=== PATIENT | male | born 1955 | race Caucasian/White ===

== ENCOUNTER 2018-06-28 12:43 | Observation (INO) | payer BC ==
--- NOTE | 2018-06-28 13:06 | ED ---
Shortness of Breath - HPI Summary HPI Summary: A 62 y/o M presents to ED c/o severe SOB with minimal exertion (for example: going up a flight steps, walking half a block, etc.) ongoing for the past 3-4 weeks. He states it is not worsening by not improving. At the same time, he began experiencing mild tinnitus in R ear described as ringing and squishing." Associated sx: Mild cough; RLE pedal edema onset two days ago, but it has returned to baseline. Denies nausea, CP, diarrhea, constipation, urinary sx, sore throat. He sleeps upright at night. He is unaware if he has a slow heart rate at baseline. PMHx: DM. - History of Current Complaint Chief Complaint: EDShortnessOfBreath Time Seen by Provider: 06/28/18 13:02 Hx Obtained From: Patient, Medical Records Onset/Duration: Lasting Weeks, Still Present Current Severity: Mild Dyspnea At: Exertion - mild Associated Signs & Symptoms: Edema - RLE, since resolved - Allergy/Home Medications Allergies/Adverse Reactions: Allergies Allergy/AdvReac Type Severity Reaction Status Date / Time codeine Allergy GI Upset Verified 06/28/18 12:58 doxycycline Allergy Rash Verified 06/28/18 12:58 Penicillins Allergy Dizziness Verified 06/28/18 12:58 Sulfa (Sulfonamide Allergy Rash Verified 06/28/18 12:58 Antibiotics) Home Medications: Home Medications Allopurinol TAB* [Zyloprim 100 MG TAB*] 200 mg PO DAILY 06/28/18 [History Confirmed 06/28/18] Dulaglutide (NF) [Trulicity] 1.5 mg SUBCUT WEEKLY 06/28/18 [History Confirmed ] Fenofibrate,Micronized [Fenofibrate] 134 mg PO DAILY 06/28/18 [History Confirmed 06/28/18] Metformin ER (NF) [Glucophage ER 750 MG TAB (NF)] 750 mg PO BID 06/28/18 [ History Confirmed 06/28/18] Metoprolol Succinate XL TAB* [Toprol XL TAB*] 100 mg PO DAILY 06/28/18 [History Confirmed 06/28/18] Omeprazole CAP (NF) [Prilosec CAP* 20 MG] 20 mg PO DAILY 06/28/18 [History Confirmed 06/28/18] PMH/Surg Hx/FS Hx/Imm Hx Previously Healthy: No Endocrine/Hematology History: Reports: Hx Diabetes Denies: Hx Thyroid Disease Cardiovascular History: Reports: Hx Hypertension Respiratory History: Denies: Hx Asthma, Hx Chronic Obstructive Pulmonary Disease (COPD), Other Respiratory Problems/Disorders GI History: Denies: Hx Ulcer - Surgical History Surgery Procedure, Year, and Place: tonsils; orthoscopic R knee; benign lipoma removed from shoulder (benign) Infectious Disease History: No Infectious Disease History: Denies: Hx Clostridium Difficile, Hx Hepatitis, Hx Human Immunodeficiency Virus (HIV), Hx of Known/Suspected MRSA, Hx Shingles, Hx Tuberculosis, Hx Known/ Suspected VRE, Hx Known/Suspected VRSA, History Other Infectious Disease, Traveled Outside the [place] in Last 30 Days - Family History Known Family History: Positive: Hypertension, Diabetes - Social History Occupation: Retired Lives: With Family Alcohol Use: Occasionally Alcohol Amount: was drinking daily,but has had no alcohol since last tuesday when seen here Hx Substance Use: No Substance Use Type: Reports: None Hx Tobacco Use: No Smoking Status (MU): Never Smoked Tobacco Review of Systems ENT: Other - pos: tinnitus in R ear Negative: Sore Throat Negative: Chest Pain Positive: Shortness Of Breath, Cough Negative: Diarrhea, Nausea, Other - neg: constipation Negative: other - neg: urinary sx Positive: Edema - RLE, resolved All Other Systems Reviewed And Are Negative: Yes Physical Exam - Summary Physical Exam Summary: Constitutional: Well-developed, Well-nourished, Alert. (-) Distressed Skin: Warm, Dry HENT: Normocephalic; Atraumatic Eyes: Conjunctiva normal Neck: Musculoskeletal ROM normal neck. (-) JVD, (-) Stridor, (-) Tracheal deviation Cardio: Rhythm irregularly irregular, rate normal, Heart sounds normal; Intact distal pulses; The pedal pulses are 2+ and symmetric. Radial pulses are 2+ and symmetric. (-) Murmur Pulmonary/Chest wall: Effort normal. (-) Respiratory distress, (-) Wheezes, (-) Rales Abd: Soft, (-) tenderness, (-) Distension, (-) Guarding, (-) Rebound Musculoskeletal: (-) Edema Lymph: (-) Cervical adenopathy Neuro: Alert, Oriented x3 Psych: Mood and affect Normal Triage Information Reviewed: Yes Vital Signs On Initial Exam: Initial Vitals Temp Pulse Resp BP Pulse Ox 97.4 F 35 16 153/74 96 06/28/18 12:54 06/28/18 12:54 06/28/18 12:54 06/28/18 12:54 06/28/18 12:54 Vital Signs Reviewed: Yes Diagnostics - Vital Signs Vital Signs Temp Pulse Resp BP Pulse Ox 06/28/18 12:54 97.4 F 35 16 153/74 96 - Laboratory Result Diagrams: 06/28/18 13:35 06/28/18 13:35 Lab Statement: Any lab studies that have been ordered have been reviewed, and results considered in the medical decision making process. - EKG 1314 Cardiac Rate: NL - 97 bpm EKG Rhythm: Sinus Rhythm Summary of EKG Findings: Frequent PACs, nml axis, nml NC, nml QRS, prolonged QTC , ST elevation in V2; T waves nml. Non-specific EKG. Re-Evaluation - Re-Evaluation 1 Re-Evaluation Time: 14:19 Change: Improved Comment: Discussing results with pt and plans to admit. Course/Dx - Course Course Of Treatment: Pt is 62 y/o M presenting with severe SOB with minimal exertion (ex: going up a flight steps, walking half a block, etc) ongoing for the past 3-4 weeks and not improving. PE is unremarkable except irregularly irregular rhythm. Lab work shows sodium: 132, glucose: 243, BNP: 256 and trop: 0.20. EKG shows NSR at 97 bpm with requent PACs, nml axis, nml NC, nml QRS, prolonged QTC, ST elevation in V2; T waves nml. Non-specific EKG. Consulted with Dr. Novak, hospitalist, who will admit patient. - Diagnoses Provider Diagnoses: CHF (congestive heart failure), Elevated troponin - Physician Notifications Discussed Care of Patient With: Juanita Novak - hospitalist Time Discussed With Above Provider: 14:19 Instructed by Provider To: Admit As Inpatient Discharge - Sign-Out/Discharge Documenting (check all that apply): Patient Departure - ADMIT Patient Received Moderate/Deep Sedation with Procedure: No - Discharge Plan Condition: Stable Disposition: ADMITTED TO [facility] Referrals: Chantelle Baker PA [Primary Care Provider] - - Billing Disposition and Condition Condition: STABLE Disposition: Admitted to [facility] - Attestation Statements Document Initiated by Yomaira: Yes Documenting Scribe: Preet Santoyo Provider For Whom Yomaira is Documenting (Include Credential): Dr. Katlin Ma MD Scribe Attestation: I, Preet Santoyo, scribed for Dr. Katlin Ma MD on at 1511. Scribe Documentation Reviewed: Yes Provider Attestation: The documentation as recorded by the yomaira, Preet Santoyo accurately reflects the service I personally performed and the decisions made by me, Dr. Katlin Ma MD Status of Scribe Document: Viewed
--- OUTSIDE RECORDS SUMMARY | 2018-06-28 13:15 | XMS REPORT | Continuity of Care Document ---
:1955 External Reference #:[id number] Author Name Nilsa Arias Care Team Providers Name Role Phone Randa Galvan M.D. Primary Care Physician Unavailable Payers Date Identification Numbers Payment Provider Subscriber Effective: 2011 Policy Number: [id number] [facility] [employer] Name: [facility] [address] [address] PayID: [id number] ALBERTA [place]vall [address] Expires: 2011 Policy Number: [id number] [facility] Health Plan o [employer] Number: [id number] Attn [facility]mo Claims Dept Group Name: [facility] [address] PayID: [id number] [place] [address] Advance Directives Type Date Description Status Comment Other Directive 02/28/2014 Health Care Proxy Current and Verified Problems Active Problems Provider Date Type 2 diabetes mellitus Dimitri Martell M.D.,FACP Onset: 03/02/2016 Essential hypertension Gurjit Cartagena M.D. Onset: 02/28/2014 Gastroesophageal reflux disease Gurjit Cartagena M.D. Onset: 02/28/2014 Gout Gurjit Cartagena M.D. Onset: 02/28/2014 Hyperlipidemia Gurjit Cartagena M.D. Onset: 03/06/2014 Stricture of esophagus Gurjit Cartagena M.D. Onset: 04/10/2014 Note: s/p dilatation Primary insomnia Dimitri Martell M.D.,CARLITA Onset: 01/27/2017 Inactive Problems Diabetes mellitus Gurjit Cartagena M.D. Onset: 02/28/2014 Inactive: 03/02/2016 Family History Date Family Member(s) Observation Comments : (1996) Father due to Heart or liver problem Father Diabetes : (age 73 Years) Mother due to Unknown reason Siblings 2 sisters Social History Type Date Description Comments Sex Unknown Marital Status 2 Times Lives With Occupation Businessman retired ETOH Use 02/20/2018 Consumes 3 glasses of wine per week Tobacco Use Start: Unknown Patient has never smoked Recreational Drug Use Denies Drug Use Smoking Status Reviewed: 06/28/18 Patient has never smoked Exercise Type/Frequency Plays sports 3 times a week Allergies, Adverse Reactions, Alerts Active Allergies Reaction Severity Comments Date Penicillins 02/08/2014 Bactrim Urticaria 02/08/2014 Doxycycline Urticaria 02/08/2014 Codeine nausea 08/27/2014 Medications Active Medications SIG Qnty Indications Ordering Date Provider Metformin HCL ER take 1 tablet twice 60tabs E11.65 Tanvir Grace 05/24/2018 a day. Son Bautista 750mg Tablets ER 24HR Fenofibrate 1 by mouth every day 30caps E78.2 Tanvir Grace 05/24/2018 134mg Son Bautista Capsules Lunesta 1 tablet by mouth at 30tabs G47.00 Dimitri Cheung 02/20/2018 3mg Tablets bedtime, as needed Son Martell,FACP Trulicity inject 2ml Dimitri Cheung 08/30/2017 1.5mg/0.5ML subcutaneously Catharpin, Solution Pen-Inject weekly M.Skye,FACP Metoprolol Succinate 1 tab by mouth every 135tabs Dimirti Cheung 08/17/2016 ER day Catharpin, 100mg Tablets ER M.DStanford,FACP 24HR Allopurinol 2 by mouth every day 180tabs Tanvir Grace 08/19/2015 100mg Son Bautista Tablets Accu-Check Glucose check 2-3 times a 1units Gurjit Cartagena, 03/06/2014 Monitor day M.Skye Device Accu-Check as directed 100units Dimitri Cheung 03/06/2014 Compactstrips Jayshree, Strips Son,FACP Accu-Chek Fastclix use as directed dx 102units Gurjit Cartagena, 03/06/2014 Lancets code: dm type ii Son Misc 250.02 Omeprazole 1 by mouth every day 90tabs Randa Galvan, 20mg MD Tablets DR Olea Potassium take 1 tablet by 90tabs Dimitri Cheung mouth once daily Catharpin, 100mg Tablets Lima.Skye,[facility] History Medications Sertraline HCL 1/2 qd for 3 wks 30tabs Dimitri Cheung 02/20/2018 - 50mg then 1 by mouth Son Martell,[facility] 06/28/2018 Tablets every day Citalopram 1/2 by mouth every 30tabs Dimitri Cheung 12/06/2017 - Hydrobromide day for 3 wks then Son Martell,[facility] 03/13/2018 20mg Tablets stop Citalopram 1 by mouth every 30tabs Dimitri Cheung 11/08/2017 - Hydrobromide day Son Martell,[facility] 12/06/2017 10mg Tablets Amlodipine Besylate 1 by mouth every 30tabs Dimitri Cheung 07/01/2017 - 2.5mg day Son Martell,[facility] 06/28/2018 Tablets Ciprofloxacin HCL si twice a day 28tabs N41.0 Dimitri Cheung 04/26/2017 - 500mg x 7 days Son Martell,[facility] 05/24/2017 Tablets Ciprofloxacin HCL twice a day 28tabs N39.0 Frederick 04/13/2017 - 500mg Son Camarena 04/26/2017 Tablets Metformin HCL 1 by mouth 3x a 90tabs E11.65 Tanvir Grace 04/04/2017 - 500mg day Son Bautista 05/24/2018 Tablets Invokamet 1 po bid 60tabs E11.65 Dimitri Cheung 02/11/2017 - 50-500mg Son Martell,[facility] 04/04/2017 Tablets Belsomra 1 by mouth every 30tabs Dimitri Cheung 01/27/2017 - 10mg Tablets night at bedtime Son Martell,[facility] 03/03/2017 Xigduo XR 1 tab po bid 60tabs E11.65 Dimitri Cheung 01/27/2017 - 5-500mg Tablets (patient bringing Son Martell,[facility] 02/11/2017 ER 24HR copay card) Rosuvastatin Calcium 1 by mouth every 90tabs Dimitri Cheung 11/02/2016 - 5mg night at bedtime Son Martell,[facility] 05/24/2018 Tablets Bydureon inject 2 mg sc 4units Dimitri Cheung 08/17/2016 - 2mg Pen weekly Son Martell,[facility] 08/30/2017 Metformin HCL 1 by mouth twice a 60tabs Dimitri Cheung 08/17/2016 - 850mg day Son Martell,[facility] 01/27/2017 Tablets Clindamycin HCL 1 tabs by mouth 40caps J01.90 Frederick 05/21/2016 - 300mg every 6h Son Camarena 05/31/2016 Capsules Lamisil AT topical once a day 42gm Dimitri Cheung 03/02/2016 - 1% Cream for 2 wks minumumJayshree M.D.,[facility] 04/26/2017 4 wks max Betamethasone topical every day 15gm Dimitri Cheung 03/02/2016 - Dipropionate to affected areas Son Martell,[facility] 04/26/2017 0.05% Cream Econazole Nitrate topical twice a 30gm B35.3 Dimitri Cheung 11/25/2015 - 1% day max 4 weeks Son Martell,[facility] 03/02/2016 Cream Trazodone HCL 1-2 every night at 60tabs G47.00 Dimitri Cheung 08/19/2015 - 50mg bedtime Son Martell,[facility] 11/25/2015 Tablets Janumet XR 1 tab by mouth 180tabs Dimitri Cheung 07/31/2015 - 50-500mg twice a day Son Martell,[facility] 08/17/2016 Tablets ER 24HR Janumet XR 1 by mouth twice a 60tabs E11.65 Dimitri Cheung 05/13/2015 - 50-1000mg day [facility]ell,[facility] 07/31/2015 Tablets ER 24HR Repaglinide 1 tablet by mouth 90tabs Dimitri Cheung 01/01/2015 - 0.5mg Tablets 15-30 minutes Son Martell,[facility] 06/28/2018 before meals three times a day Cheratussin ac 5-10 milliliters 180ml 786.2 Lenny Angel NP 10/03/2014 - by mouth four 05/13/2015 100-10mg/5ML Solution times a day as needed Ciprofloxacin HCL 1 tab by mouth 14tabs 786.2 Lenny Angel NP 10/03/2014 - 500mg twice a day x 7 05/13/2015 Tablets days Invokana 1 tablet po daily 30tabs 250.02 Gurjit Cartagena, 07/03/2014 - 100mg Tablets M.D. 05/13/2015 Januvia 1 tablet by mouth 60tabs 250.02 Gurjit Joyino, 05/01/2014 - 100mg Tablets daily M.D. 05/13/2015 Metformin HCL 1 by mouth twice a 60tabs E11.65 Dimitri Cheung 05/01/2014 - 500mg day Son Martlel,[facility] 05/13/2015 Tablets Meclizine HCL 1 tablet twice a 30tabs 780.4 Gurjit Cartagena, 04/10/2014 - 12.5mg day, as needed M.D. 07/03/2014 Tablets Cyclobenzaprine HCL 1 tablet by mouth 30tabs 723.1 Gurjit Cartagena, 2014 - 5mg three times a day M.D. 07/03/2014 Tablets as needed Atorvastatin Calcium 1 tablet at 60tabs 272.2 Gurjit Cartagena, 03/06/2014 - 20mg bedtime daily M.D. 04/09/2014 Tablets Metformin HCL 1/2 tablet by 60tabs Gurjit Cartagena, 02/28/2014 - 500mg mouth twice a day M.D. 04/09/2014 Tablets Januvia 1 tablet po daily 60tabs Gurjit Cartagena, 02/28/2014 - 50mg Tablets M.D. 05/01/2014 Allopurinol 1 by mouth every 90tabs Frederick - 300mg Tablets day Son Camarena 08/19/2015 Klonopin 1 by mouth twice a 30tabs Unknown - 0.5mg Tablets day 03/06/2014 Lunesta 1 tablet by mouth 30tabs G47.00 Dimitri Cheung - 3mg Tablets at bedtime, as Son Martell,[facility] 04/26/2017 needed Metoprolol Succinate take 1 tablet by 90tabs Dimitri Cheung - ER mouth once daily Son Martell,[facility] 08/17/2016 100mg Tablets ER 24HR Immunizations CPT Code Status Date Vaccine Reaction Lot # [id number] Given 11/08/2017 Influenza Virus Vaccine, [id number] Quadrivalent, Split, Preservative Free 18717 Given 01/27/2017 Zoster (Zostavax) [id number] 90408 Given 12/04/2016 Influenza Virus Vaccine, Quadrivalent, Split, Preservative Free 06885 Given 06/22/2016 Pneumococcal Conjugate Vaccine 13 Valent For Intramuscular Use [id number] Given 12/07/2015 Fluvirin Im 3Yrs And Older 33452 Given 11/25/2015 Tdap - no reaction noted ... [id number] Tetanus/Diptheria/Acellular hh Pertussis 19064 Given 05/13/2015 Pneumonia Vaccine [id number] Q2039 Given 12/07/2014 Flu Vaccine NOS Vital Signs Date Vital Result Comment 06/28/2018 10:33am Height 70 inches 5'10" Weight 226.00 lb Heart Rate 63 /min BP Systolic Sitting 129 mmHg BP Diastolic Sitting 88 mmHg O2 % BldC Oximetry 94 % BMI (Body Mass Index) 32.4 kg/m2 05/24/2018 10:56am Height 70 inches 5'10" Weight 224.00 lb Heart Rate 89 /min BP Systolic Sitting 123 mmHg BP Diastolic Sitting 76 mmHg BMI (Body Mass Index) 32.1 kg/m2 02/20/2018 11:01am Height 70 inches 5'10" Weight 218.00 lb Heart Rate 100 /min BP Systolic Sitting 118 mmHg BP Diastolic Sitting 80 mmHg Body Temperature 97.0 F O2 % BldC Oximetry 95 % BMI (Body Mass Index) 31.3 kg/m2 12/06/2017 11:39am Height 70 inches 5'10" Weight 217.00 lb Heart Rate 89 /min BP Systolic Sitting 118 mmHg BP Diastolic Sitting 64 mmHg Body Temperature 96.9 F O2 % BldC Oximetry 95 % BMI (Body Mass Index) 31.1 kg/m2 11/08/2017 3:36pm Weight 216.00 lb Heart Rate 92 /min BP Systolic Sitting 122 mmHg BP Diastolic Sitting 66 mmHg Body Temperature 97.7 F O2 % BldC Oximetry 94 % 08/30/2017 1:54pm Weight 210.00 lb Heart Rate 96 /min BP Systolic Sitting 130 mmHg BP Diastolic Sitting 82 mmHg Body Temperature 96.3 F O2 % BldC Oximetry 96 % 04/26/2017 9:44am Weight 219.00 lb Heart Rate 106 /min BP Systolic Sitting 166 mmHg BP Diastolic Sitting 84 mmHg Body Temperature 97.3 F O2 % BldC Oximetry 94 % 04/13/2017 9:44am Height 69.25 inches 5'9.25" Weight 223.75 lb Heart Rate 94 /min BP Systolic Sitting 124 mmHg BP Diastolic Sitting 80 mmHg Body Temperature 97.4 F O2 % BldC Oximetry 94 % BMI (Body Mass Index) 32.8 kg/m2 01/27/2017 9:18am Height 69.25 inches 5'9.25" Weight 214.00 lb Heart Rate 92 /min BP Systolic Sitting 126 mmHg BP Diastolic Sitting 80 mmHg Body Temperature 97.1 F O2 % BldC Oximetry 96 % BMI (Body Mass Index) 31.4 kg/m2 10/22/2016 8:00am Weight 224.50 lb Heart Rate 89 /min BP Systolic Sitting 150 mmHg BP Diastolic Sitting 82 mmHg Body Temperature 97.5 F O2 % BldC Oximetry 95 % 08/17/2016 9:00am Weight 229.50 lb Heart Rate 91 /min BP Systolic Sitting 160 mmHg BP Diastolic Sitting 95 mmHg BP Systolic Recheck 152 mmHg BP Diastolic Recheck 94 mmHg Body Temperature 97.5 F O2 % BldC Oximetry 97 % 05/21/2016 11:29am Weight 227.25 lb Heart Rate 86 /min BP Systolic Sitting 142 mmHg BP Diastolic Sitting 90 mmHg Body Temperature 97.3 F O2 % BldC Oximetry 97 % 05/13/2016 2:17pm Weight 227.00 lb Heart Rate 80 /min BP Systolic Sitting 138 mmHg BP Diastolic Sitting 88 mmHg Respiratory Rate 15 /min Body Temperature 98.1 F O2 % BldC Oximetry 98 % 03/02/2016 10:12am Height 70 inches 5'10" Weight 226.00 lb Heart Rate 83 /min BP Systolic 120 mmHg BP Diastolic 82 mmHg Body Temperature 98.1 F O2 % BldC Oximetry 97 % BMI (Body Mass Index) 32.4 kg/m2 11/25/2015 10:50am Height 70 inches 5'10" Weight 218.00 lb Heart Rate 85 /min BP Systolic 126 mmHg BP Diastolic 86 mmHg Body Temperature 98.2 F O2 % BldC Oximetry 95 % BMI (Body Mass Index) 31.3 kg/m2 08/19/2015 10:11am Heart Rate 76 /min BP Systolic Sitting 137 mmHg BP Diastolic Sitting 88 mmHg Body Temperature 98.4 F O2 % BldC Oximetry 96 % 05/13/2015 9:30am Weight 220.00 lb Heart Rate 76 /min BP Systolic Sitting 128 mmHg BP Diastolic Sitting 84 mmHg Respiratory Rate 15 /min Body Temperature 98.0 F O2 % BldC Oximetry 98 % 10/03/2014 10:39am Weight 216.00 lb Heart Rate 94 /min BP Systolic Sitting 130 mmHg BP Diastolic Sitting 84 mmHg Body Temperature 98.6 F O2 % BldC Oximetry 96 % 08/27/2014 10:57am Weight 215.00 lb Heart Rate 83 /min BP Systolic Sitting 142 mmHg BP Diastolic Sitting 96 mmHg Body Temperature 97.7 F O2 % BldC Oximetry 98 % 07/03/2014 9:02am Height 70 inches 5'10" Weight 223.00 lb Heart Rate 78 /min BP Systolic Sitting 138 mmHg home unit: 144/92, BP Diastolic Sitting 88 mmHg home unit: 144/92, Body Temperature 96.5 F O2 % BldC Oximetry 98 % BMI (Body Mass Index) 32.0 kg/m2 05/01/2014 8:50am Height 70 inches 5'10" Weight 220.00 lb Heart Rate 90 /min BP Systolic Sitting 112 mmHg BP Diastolic Sitting 68 mmHg Body Temperature 97.6 F O2 % BldC Oximetry 96 % BMI (Body Mass Index) 31.6 kg/m2 04/10/2014 8:50am Height 70 inches 5'10" Weight 222.50 lb Heart Rate 76 /min BP Systolic Sitting 144 mmHg BP Diastolic Sitting 78 mmHg Body Temperature 97.6 F O2 % BldC Oximetry 98 % BMI (Body Mass Index) 31.9 kg/m2 03/06/2014 9:01am Height 70 inches 5'10" Weight 222.00 lb Heart Rate 76 /min BP Systolic 130 mmHg BP Diastolic 78 mmHg BMI (Body Mass Index) 31.9 kg/m2 02/08/2014 1:28pm Height 70 inches 5'10" Weight 218.25 lb Heart Rate 90 /min BP Systolic Sitting 150 mmHg BP Diastolic Sitting 90 mmHg Body Temperature 98.0 F O2 % BldC Oximetry 97 % BMI (Body Mass Index) 31.3 kg/m2 Results Test Date Facility Test Result H/L Range Note Lipid Profile 06/23/2018 [facility] Triglycerides 320 mg/dL 1 (Trig/Chol/HDL) [address] [place] [address] [phone] Cholesterol 196 mg/dL 2 HDL Cholesterol 30.3 mg/dL 3 LDL Cholesterol 102 mg/dL 4 Laboratory 06/23/2018 [facility] Fructosamine 427 Abnormal 200 - 5 test finding [address] [facility] mcmol/L [address] [place] [address] [phone] Laboratory 05/24/2018 [facility] Hemoglobin A1c 9.1 High 5-7 test finding Laboratory 05/16/2018 [facility] TSH (Thyroid 2.33 N 0.34-5 6 , 7 test finding [address] [facility] Stim Horm) mcIU/mL .[address] [place] [address] [phone] Vitamin B12 579 pg/mL N 180-914 8 Laboratory test 05/16/2018 [facility] Uric Acid 5.9 mg/dL N 4.4-7.6 9 finding [address] [place] [address] [phone] Basic Metabolic 05/16/2018 [facility] Sodium 134 mmol/L Low 135-145 Panel [address] [place] [address] [phone] Potassium 4.4 mmol/L N 3.5-5.0 Chloride 102 mmol/L N 101-111 Co2 Carbon Dioxide 24 mmol/L N 22-32 Anion Gap 8 mmol/L N 2-11 Glucose 231 mg/dL High 70-100 Blood Urea Nitrogen 16 mg/dL N 6-24 Creatinine 0.95 mg/dL N 0.67-1.17 BUN/Creatinine Ratio 16.8 N 8-20 Calcium 8.9 mg/dL N 8.6-10.3 Egfr Non- 79.8 >60 Egfr 96.6 >60 10 Lipid Profile 05/16/2018 [facility] Triglycerides 357 mg/dL 11 (Trig/Chol/HDL) [address] [place] [address] [phone] Cholesterol 196 mg/dL 12 HDL Cholesterol 29.8 mg/dL 13 LDL Cholesterol 95 mg/dL 14 Urine Microalbumin 05/16/2018 [facility] Ur Microalbumin < 15.[address] (mg/L) mg/L [place], [place] [phone] Urine Creatinine 129.35 mg/dL Urine Microalbumin/Creatinine TNP <31 15 Laboratory test 02/20/2018 [facility] Hemoglobin A1c 7.6 High 5-7 finding Basic Metabolic 11/28/2017 [facility] Sodium 137 mmol/L N 135- [address] [place] [address] [phone] Potassium 4.4 mmol/L N 3.5-5.0 Chloride 102 mmol/L N 101-111 Co2 Carbon Dioxide 28 mmol/L N 22-32 Anion Gap 7 mmol/L N 2-11 Glucose 143 mg/dL High 70-100 Blood Urea Nitrogen 15 mg/dL N 6-24 Creatinine 0.98 mg/dL N 0.67-1.17 BUN/Creatinine Ratio 15.3 N 8-20 Calcium 8.8 mg/dL N 8.6-10.3 Egfr Non- 77.0 >60 Egfr 93.2 >60 16 Laboratory test 11/28/2017 [facility] Uric Acid 5.0 mg/dL N 4.4-7.[address] [place] [address] [phone] Urine 08/30/2017 [facility] Ur Microalbumin < 15.[address] (mg/L) mg/[place] [address] [phone] Urine Creatinine 140.88 mg/dL Urine Microalbumin/Creatinine TNP ug/mg <31 17 Laboratory test 08/30/2017 [facility] Hemoglobin A1c 6.7 5-7 finding Laboratory test 06/10/2017 [facility] PSA Screening 1.314 ng/mL N 0-4.0 [address] [place] [address] [phone] Lipid Profile 04/19/2017 [facility] Triglycerides 269 mg/dL 19 (Trig/Chol/HDL) [address] [place] [address] [phone] Cholesterol 155 mg/dL 20 HDL Cholesterol 26.1 mg/dL 21 LDL Cholesterol 75 mg/dL 22 Laboratory test 04/19/2017 [facility] Hemoglobin 8.0 % High 4.0-5.6 [address] A1c ([place] [address] HGB) [phone] Urine Culture And 04/13/2017 [facility] Urine Culture SEE 24, Sensitivities [address] RESULT [address] [place] [address] BELOW [phone] Ua Routine 04/13/2017 [facility] Ua Specific 1.005 Sumas Ua PH 6 Ua Color yellow Ua Appera clear Ua WBC trace Ua Protein neg Ua Glucose normal Ua Ketones neg Ua Bilirubin neg Ua Urobilinogen normal Ua Nitrite neg Ua Occult Blood neg Laboratory test 01/27/2017 [facility] Hemoglobin A1c 8.0 High 5-7 finding Laboratory test 08/17/2016 [facility] Hemoglobin A1c 9.7 High 5-7 finding Urine Microalbumin 08/11/2016 [facility] Urine Creatinine 159.08 N Random [address] mg/dL [place], [place] [phone] Ur Microalbumin (mg/L) < 15.0 mg/L N Urine Microalbumin/Creatinine TNP ug/mg N <31 26 Laboratory test 08/11/2016 [facility] Uric Acid 6.0 mg/dL N 4.4-7.6 27 finding [address] [place] [address] [phone] Basic Metabolic 08/11/2016 [facility] Sodium 135 mmol/L N 133- [address] [place] [address] [phone] Potassium 4.2 mmol/L N 3.5-5.0 Chloride 101 mmol/L N 101-111 Co2 Carbon Dioxide 26 mmol/L N 22-32 Anion Gap 8 mmol/L N 2-11 Glucose 194 mg/dL High 70-100 Blood Urea Nitrogen 16 mg/dL N 6-24 Creatinine 0.93 mg/dL N 0.67-1.17 BUN/Creatinine Ratio 17.2 N 8-20 Calcium 9.1 mg/dL N 8.6-10.3 Egfr Non- 82.3 N >60 Egfr 105.9 N >60 28 Lipid Profile 08/11/2016 [facility] Triglycerides 331 mg/dL N 29 (Trig/Chol/HDL) [address] [place] [address] [phone] Cholesterol 191 mg/dL N 30 HDL Cholesterol 29.4 mg/dL N 31 LDL Cholesterol 95 mg/dL N 32 Laboratory test 05/21/2016 [facility] Hemoglobin A1c 8.9 High 5-7 finding Laboratory test 02/26/2016 [facility] Hepatitis C Nonreactive N Nonreactive finding [address] [place] [address] [phone] Hemoglobin A1c (Glyco HGB) 7.6 % High Less than 6.0 33 Uric Acid 6.2 mg/dL N 4.4-7.6 Laboratory test 11/25/2015 [facility] Hemoglobin A1c 7.8 High 5-7 finding Comp Metabolic 08/12/2015 [facility] Sodium 136 mmol/L N 133- [address] [place] [address] [phone] Potassium 4.4 mmol/L N 3.5-5.0 Chloride 102 mmol/L N 101-111 Co2 Carbon Dioxide 26 mmol/L N 22-32 Anion Gap 8 mmol/L N 2-11 Glucose 150 mg/dL High 70-100 Blood Urea Nitrogen 13 mg/dL N 6-24 Creatinine 0.95 mg/dL N 0.67-1.17 BUN/Creatinine Ratio 13.7 N 8-20 Calcium 9.3 mg/dL N 8.6-10.3 Total Protein 6.9 g/dL N 6.4-8.9 Albumin 4.3 g/dL N 3.2-5.2 Globulin 2.6 g/dL N 2-4 Albumin/Globulin Ratio 1.7 N 1-3 Total Bilirubin 0.40 mg/dL N 0.2-1.0 Alkaline Phosphatase 46 U/L N 34-104 Alt 24 U/L N 7-52 Ast 20 U/L N 13-39 Egfr Non- 80.6 N >60 Egfr 103.7 N >60 34 Laboratory test 08/12/2015 [facility] Hemoglobin A1c 8.1 % High Less [address] (Glyco HGB) than 6.0 [place] [address] [phone] Lipid Profile 08/12/2015 [facility] Triglycerides 292 N 36 (Trig/Chol/HDL) [address] mg/[place] [address] [phone] Cholesterol 182 mg/dL N 37 HDL Cholesterol 28.7 mg/dL N 38 LDL Cholesterol 95 mg/dL N 39 Urinalysis Profile 08/12/2015 [facility] Urine Color Yellow N [address] [place] [address] [phone] Urine Appearance Clear N Urine Specific Sumas 1.018 N 1.010-1.030 Urine pH 6.0 N 5-9 Urine Urobilinogen Negative N Negative Urine Ketones Negative N Negative Urine Protein Negative N Negative Urine Leukocytes Negative N Negative Urine Blood Negative N Negative Urine Nitrite Negative N Negative Urine Bilirubin Negative N Negative Urine Glucose Negative N Negative Urine Microalbumin 08/12/2015 [facility] Ur Microalbumin < 5.0 mg/L N Random [address] (mg/L) [place] [address] [phone] Urine Creatinine 189.19 mg/dL N Urine Microalbumin/Creatinine TNP ug/mg N <31 40 CBC Auto Diff 08/12/2015 [facility] White Blood 6.7 10^3/uL N 3.5-10.[address] [place] [address] [phone] Red Blood Count 4.80 10^6/uL N 4.0-5.4 Hemoglobin 14.6 g/dL N 14.0-18.0 Hematocrit 44 % N 42-52 Mean Corpuscular Volume 91 fL N 80-94 Mean Corpuscular Hemoglobin 31 pg N 27-31 Mean Corpuscular HGB Conc 34 g/dL N 31-36 Red Cell Distribution Width 14 % N 10.5-15 Platelet Count 171 10^3/uL N 150-450 Mean Platelet Volume 10 um3 N 7.4-10.4 Abs Neutrophils 4.1 10^3/uL N 1.5-7.7 Abs Lymphocytes 1.7 10^3/uL N 1.0-4.8 Abs Monocytes 0.5 10^3/uL N 0-0.8 Abs Eosinophils 0.3 10^3/uL N 0-0.6 Abs Basophils 0.1 10^3/uL N 0-0.2 Abs Nucleated RBC 0.01 10^3/uL N Granulocyte % 61.4 % N 38-83 Lymphocyte % 25.2 % N 25-47 Monocyte % 7.6 % N 1-9 Eosinophil % 4.8 % N 0-6 Basophil % 1.0 % N 0-2 Nucleated Red Blood Cells % 0.2 N Laboratory test 08/12/2015 [facility] Uric Acid 5.6 mg/dL N 4.4-7.6 [address] [place] [address] [phone] Laboratory test 05/13/2015 [facility] Hemoglobin A1c 9.0 High 5-7 finding Comp Metabolic 08/07/2014 [facility] Sodium 136 N 133-145 [address] mmol/[place] [address] [phone] Potassium 3.9 mmol/L N 3.5-5.0 Chloride 102 mmol/L N 101-111 Co2 Carbon Dioxide 29 mmol/L N 22-32 Anion Gap 5 mmol/L N 2-11 Glucose 142 mg/dL High 70-100 Blood Urea Nitrogen 12 mg/dL N 6-24 Creatinine 0.91 mg/dL N 0.67-1.17 BUN/Creatinine Ratio 13.2 N 8-20 Calcium 9.1 mg/dL N 8.6-10.3 Total Protein 6.9 g/dL N 6.4-8.9 Albumin 4.2 g/dL N 3.2-5.2 Globulin 2.7 g/dL N 2-4 Albumin/Globulin Ratio 1.6 N 1-3 Total Bilirubin 0.50 mg/dL N 0.2-1.0 Alkaline Phosphatase 45 U/L N 34-104 Alt 31 U/L N 7-52 Ast 22 U/L N 13-39 Egfr Non- 85.0 N >60 Egfr 109.3 N >60 43 Lipid Profile 08/07/2014 [facility] Triglycerides 350 mg/dL N 44 (Trig/Chol/HDL) [address] [place] [address] [phone] Cholesterol 185 mg/dL N 45 HDL Cholesterol 29.4 mg/dL N 46 LDL Cholesterol 86 mg/dL N 47 Comp Metabolic Panel 06/25/2014 Sodium 135 mmol/L N 133-145 Potassium 4.4 mmol/L N 3.5-5.0 Chloride 101 mmol/L N 101-111 Co2 Carbon Dioxide 28 mmol/L N 22-32 Anion Gap 6 mmol/L N 2-11 Glucose 177 mg/dL High 70-100 Blood Urea Nitrogen 13 mg/dL N 6-24 Creatinine 0.93 mg/dL N 0.67-1.17 BUN/Creatinine Ratio 14.0 N 8-20 Calcium 8.9 mg/dL N 8.6-10.3 Total Protein 6.7 g/dL N 6.4-8.9 Albumin 4.1 g/dL N 3.2-5.2 Globulin 2.6 g/dL N 2-4 Albumin/Globulin Ratio 1.6 N 1-3 Total Bilirubin 0.50 mg/dL N 0.2-1.0 Alkaline Phosphatase 46 U/L N 34-104 Alt 26 U/L N 7-52 Ast 17 U/L N 13-39 Egfr Non- 82.9 N >60 Egfr 106.6 N >60 48 Laboratory test 06/25/2014 Hemoglobin A1c 8.4 % High Less than 49 finding 6.0 Comp Metabolic 02/15/2014 [facility] Sodium 132 mmol/L Low 133 -[address] [place] [address] [phone] Potassium 4.2 mmol/L N 3.5-5.0 Chloride 97 mmol/L Low 101-111 Co2 Carbon Dioxide 30 mmol/L N 22-32 Anion Gap 5 mmol/L N 2-11 Glucose 269 mg/dL High 70-100 Blood Urea Nitrogen 13 mg/dL N 6-24 Creatinine 1.07 mg/dL N 0.67-1.17 BUN/Creatinine Ratio 12.1 N 8-20 Calcium 9.1 mg/dL N 8.6-10.3 Total Protein 7.1 g/dL N 6.4-8.9 Albumin 4.2 g/dL N 3.2-5.2 Globulin 2.9 g/dL N 2-4 Albumin/Globulin Ratio 1.4 N 1-3 Total Bilirubin 0.50 mg/dL N 0.2-1.0 Alkaline Phosphatase 60 U/L N 34-104 Alt 37 U/L N 7-52 Ast 22 U/L N 13-39 Egfr Non- 70.5 N >60 Egfr 90.7 N >60 50 Urinalysis Profile 02/15/2014 [facility] Urine Color Yellow N [address] [place] [address] [phone] Urine Appearance Clear N Urine Specific [place] 1.019 N 1.010-1.030 Urine pH 6.0 N 5-9 Urine Urobilinogen Negative N Negative Urine Ketones Negative N Negative Urine Protein Negative N Negative Urine Leukocytes Negative N Negative Urine Blood Negative N Negative Urine Nitrite Negative N Negative Urine Bilirubin Negative N Negative Urine Glucose 1+(50 mg/dL) Abnormal Negative CBC Auto Diff 02/15/2014 [facility] White Blood 6.8 10^3/uL N 4.8-10.[address] [place] [address] [phone] Red Blood Count 5.08 10^6/uL N 4.0-5.4 Hemoglobin 15.8 g/dL N 14.0-18.0 Hematocrit 47 % N 42-52 Mean Corpuscular Volume 93 fL N 80-94 Mean Corpuscular Hemoglobin 31 pg N 27-31 Mean Corpuscular HGB Conc 34 g/dL N 31-36 Red Cell Distribution Width 13 % N 10.5-15 Platelet Count 136 10^3/uL Low 150-450 Mean Platelet Volume 10 um3 N 7.4-10.4 Abs Neutrophils 3.7 10^3/uL N 1.5-7.7 Abs Lymphocytes 2.1 10^3/uL N 1.0-4.8 Abs Monocytes 0.6 10^3/uL N 0-0.8 Abs Eosinophils 0.3 10^3/uL N 0-0.6 Abs Basophils 0.1 10^3/uL N 0-0.2 Abs Nucleated RBC 0 10^3/uL N Granulocyte % 54.0 % N 38-83 Lymphocyte % 30.8 % N 25-47 Monocyte % 8.9 % N 1-9 Eosinophil % 5.0 % N 0-6 Basophil % 1.3 % N 0-2 Nucleated Red Blood Cells % 0.1 N Lipid Profile 02/15/2014 [facility] Triglycerides 474 mg/dL N 51 (Trig/Chol/HDL) [address] [place] [address] [phone] Cholesterol 193 mg/dL N 52 HDL Cholesterol 28.0 mg/dL N 53 LDL Cholesterol (SEE NOTE) mg/dL N 54 Laboratory test 02/15/2014 [facility] Hemoglobin A1c 11.8 % High Less [address] than 6.0 [place] [address] [phone] Urine 02/15/2014 [facility] Ur Microalbumin 7.0 mg/L N Microalbumin [address] (mg/L) [place] [address] [phone] Urine Creatinine 223.17 mg/dL N Urine Microalbumin/Creatinine 3.1 N Less Than 31 Laboratory test 02/15/2014 [facility] Uric Acid 4.6 mg/dL N 4.4-7.6 [address] [place] [address] [phone] TSH (Thyroid Stimulating Horm) 2.46 IU/mL N 0.34-5.60 57 PSA Diagnostic 0.742 ng/mL N 0-4.000 58 1 Desirable: <150 Borderline High: 150-199 High: 200-499 Very High: >500 2 Desirable: <200 Borderline High: 200-239 High: >239 3 Low: <40 Desirable: 40-60 High: >60 4 Desirable: <100 Near Optimal: 100-129 Borderline High: 130-159 High: 160-189 Very High: >189 5 Test Performed by: [address] [id number] 6 FASTING 10 HOUR 7 FASTING 10 HOUR 8 Normal Range 180 to 914 Indeterminate Range 145 to 180 Deficient Range <145 9 FASTING 10 HOUR 10 Because ethnic data is not always readily available, this report includes an eGFR for both -Americans and non- Americans. The National Kidney Disease Education Program (NKDEP) does not endorse the use of the MDRD equation for patients that are not between the ages of 18 and 70, are , have extremes of body size, muscle mass, or nutritional status, or are non- or non-. According to the National Kidney Foundation, irrespective of diagnosis, the stage of the disease is based on the level of kidney function: Stage Description GFR(mL/min/1.73 m(2)) 1 Kidney damage with normal or decreased GFR 90 2 Kidney damage with mild decrease in GFR 60-89 3 Moderate decrease in GFR 30-59 4 Severe decrease in GFR 15-29 5 Kidney failure <15 (or dialysis) 11 Desirable: <150 Borderline High: 150-199 High: 200-499 Very High: >500 12 Desirable: <200 Borderline High: 200-239 High: >239 13 Low: <40 Desirable: 40-60 High: >60 14 Desirable: <100 Near Optimal: 100-129 Borderline High: 130-159 High: 160-189 Very High: >189 15 Unable to calculate due to low microalbumin 16 Because ethnic data is not always readily available, this report includes an eGFR for both -Americans and non- Americans. The National Kidney Disease Education Program (NKDEP) does not endorse the use of the MDRD equation for patients that are not between the ages of 18 and 70, are , have extremes of body size, muscle mass, or nutritional status, or are non- or non-. According to the National Kidney Foundation, irrespective of diagnosis, the stage of the disease is based on the level of kidney function: Stage Description GFR(mL/min/1.73 m(2)) 1 Kidney damage with normal or decreased GFR 90 2 Kidney damage with mild decrease in GFR 60-89 3 Moderate decrease in GFR 30-59 4 Severe decrease in GFR 15-29 5 Kidney failure <15 (or dialysis) 17 Unable to calculate due to low microalbumin 18 Serum levels of PSA measured using the Mima Constant Contact DXI Hybritech immunoassay should not be interpreted as absolute evidence of the presence or absence of disease. The PSA value should be used in conjunction with other pertinent clinical diagnostic procedures. The values obtained with different assay methods or kits cannot be used interchangeably. 19 Desirable: <150 Borderline High: 150-199 High: 200-499 Very High: >500 20 Desirable: <200 Borderline High: 200-239 High: >239 21 Low: <40 Desirable: 40-60 High: >60 22 Desirable: <100 Near Optimal: 100-129 Borderline High: 130-159 High: 160-189 Very High: >189 23 Therapeutic target for the treatment of diabetes mellitus patients is <7% HBA1C, and in selective patients <6.0%. Please refer to [place] [employer] diabetic care guidelines for further information. 24 [id number] 25 SEE RESULT BELOW Name: EMILIANO FLOWER : [address]: Frederick Camarena MD Acct: [id number] Unit: [id number] AGE: 61 Location: [facility] Re04/13/17 SEX: M Status: REG REF SPEC: [id number] BRAYAN: 04/13/17-[address] [facility] [address]: Frederick Camarena MD REQ: [id number] RECD: 04/13/17 STATUS: COMP _ SOURCE: URINE SPDESC: ORDERED: Urine Culture COMMENTS: [id number] Urine Source: Random Procedure Result Reported Site Urine Culture Final 04/15/17- 825 ML Organism 1 ESCHERICHIA COLI [place] Count 25-50,000 (Moderate) CFU/ML 1. ESCHERICHIA COLI M.I.C. RX --------- ------ Ampicillin >=32 R Cefazolin <=4 S Cefepime <=1 S Ceftriaxone <=1 S Ciprofloxacin <=0.25 S Gentamicin <=1 S Levofloxacin <=0.12 S Meropenem <=0.25 S Nitrofurantoin <=16 S Tetracycline <=1 S Pipercillin/Tazobactam <=4 S Trimethoprim/Sulfamethoxazole <=20 S Amoxicillin/Clavulanic Acid 16 I Aztreonam <=1 S Contact the Microbiology Department for any additional antibiotic reporting. * ML - MAIN LAB ([facility]) . END OF REPORT * ML=Testing performed at Main Lab DEPARTMENT OF PATHOLOGY, [address] [place] [address] Janak Jay M.D. Director [facility] # [id number] 26 Unable to calculate due to low microalbumin 27 FASTING 10 HOUR 28 Because ethnic data is not always readily available, this report includes an eGFR for both -Americans and non- Americans. The National Kidney Disease Education Program (NKDEP) does not endorse the use of the MDRD equation for patients that are not between the ages of 18 and 70, are , have extremes of body size, muscle mass, or nutritional status, or are non- or non-. According to the National Kidney Foundation, irrespective of diagnosis, the stage of the disease is based on the level of kidney function: Stage Description GFR(mL/min/1.73 m(2)) 1 Kidney damage with normal or decreased GFR 90 2 Kidney damage with mild decrease in GFR 60-89 3 Moderate decrease in GFR 30-59 4 Severe decrease in GFR 15-29 5 Kidney failure <15 (or dialysis) 29 Desirable <150 Borderline high 150-199 High 200-499 Very High >500 30 Desirable <200 Borderline high 200-239 High >239 31 Low <40 Desirable: 40-60 High: >60 32 Desirable: <100 mg/dL Near Optimal: 100-129 mg/dL Borderline High: 130-159 mg/dL High: 160-189 mg/dL Very High: >189 mg/dL 33 Therapeutic target for the treatment of diabetes Mellitus patients is <7% HBA1C, and in selective patients <6.0%.Please refer to [place] [employer] Diabetic care guidelines for further information. 34 Because ethnic data is not always readily available, this report includes an eGFR for both -Americans and non- Americans. The National Kidney Disease Education Program (NKDEP) does not endorse the use of the MDRD equation for patients that are not between the ages of 18 and 70, are , have extremes of body size, muscle mass, or nutritional status, or are non- or non-. According to the National Kidney Foundation, irrespective of diagnosis, the stage of the disease is based on the level of kidney function: Stage Description GFR(mL/min/1.73 m(2)) 1 Kidney damage with normal or decreased GFR 90 2 Kidney damage with mild decrease in GFR 60-89 3 Moderate decrease in GFR 30-59 4 Severe decrease in GFR 15-29 5 Kidney failure <15 (or dialysis) 35 Therapeutic target for the treatment of diabetes Mellitus patients is <7% HBA1C, and in selective patients <6.0%.Please refer to [place] [employer] Diabetic care guidelines for further information. 36 Desirable <150 Borderline high 150-199 High 200-499 Very High >500 37 Desirable <200 Borderline high 200-239 High >239 38 Low <40 Desirable: 40-60 High: >60 39 Desirable: <100 mg/dL Near Optimal: 100-129 mg/dL Borderline High: 130-159 mg/dL High: 160-189 mg/dL Very High: >189 mg/dL 40 Unable to calculate due to low microalbumin 41 FASTING 10 HOUR 42 PT IS FASTING 43 Because ethnic data is not always readily available, this report includes an eGFR for both -Americans and non- Americans. The National Kidney Disease Education Program (NKDEP) does not endorse the use of the MDRD equation for patients that are not between the ages of 18 and 70, are , have extremes of body size, muscle mass, or nutritional status, or are non- or non-. According to the National Kidney Foundation, irrespective of diagnosis, the stage of the disease is based on the level of kidney function: Stage Description GFR(mL/min/1.73 m(2)) 1 Kidney damage with normal or decreased GFR 90 2 Kidney damage with mild decrease in GFR 60-89 3 Moderate decrease in GFR 30-59 4 Severe decrease in GFR 15-29 5 Kidney failure <15 (or dialysis) 44 Desirable <150 Borderline high 150-199 High 200-499 Very High >500 45 Desirable <200 Borderline high 200-239 High >239 46 Low <40 Desirable: 40-60 High: >60 47 Desirable: <100 mg/dL Near Optimal: 100-129 mg/dL Borderline High: 130-159 mg/dL High: 160-189 mg/dL Very High: >189 mg/dL 48 Because ethnic data is not always readily available, this report includes an eGFR for both -Americans and non- Americans. The National Kidney Disease Education Program (NKDEP) does not endorse the use of the MDRD equation for patients that are not between the ages of 18 and 70, are , have extremes of body size, muscle mass, or nutritional status, or are non- or non-. According to the National Kidney Foundation, irrespective of diagnosis, the stage of the disease is based on the level of kidney function: Stage Description GFR(mL/min/1.73 m(2)) 1 Kidney damage with normal or decreased GFR 90 2 Kidney damage with mild decrease in GFR 60-89 3 Moderate decrease in GFR 30-59 4 Severe decrease in GFR 15-29 5 Kidney failure <15 (or dialysis) 49 Therapeutic target for the treatment of diabetes Mellitus patients is <7% HBA1C, and in selective patients <6.0%.Please refer to [place] [employer] Diabetic care guidelines for further information. 50 Because ethnic data is not always readily available, this report includes an eGFR for both -Americans and non- Americans. The National Kidney Disease Education Program (NKDEP) does not endorse the use of the MDRD equation for patients that are not between the ages of 18 and 70, are , have extremes of body size, muscle mass, or nutritional status, or are non- or non-. According to the National Kidney Foundation, irrespective of diagnosis, the stage of the disease is based on the level of kidney function: Stage Description GFR(mL/min/1.73 m(2)) 1 Kidney damage with normal or decreased GFR 90 2 Kidney damage with mild decrease in GFR 60-89 3 Moderate decrease in GFR 30-59 4 Severe decrease in GFR 15-29 5 Kidney failure <15 (or dialysis) 51 Desirable <150 Borderline high 150-199 High 200-499 Very High >500 52 Desirable <200 Borderline high 200-239 High >239 53 Low <40 Desirable: 40-60 High: >60 54 Unable to calculate LDL as triglyceride is > 400 55 Therapeutic target for the treatment of diabetes Mellitus patients is <7% HBA1C, and in selective patients <6.0%.Please refer to [place] [employer] Diabetic care guidelines for further information. 56 PT IS FASTING 57 PT IS FASTING 58 Serum levels of PSA measured using the Mima Constant Contact DXI Hybritech immunoassay should not be interpreted as absolute evidence of the presence or absence of disease. The PSA value should be used in conjunction with other pertinent clinical diagnostic procedures. The values obtained with different assay methods or kits cannot be used interchangeably. Procedures Date Code Description Status 01/25/2018 [id number] Colonoscopy Completed 09/30/2017 [id number] Diabetic Retinal Eye Exam Completed 03/22/2014 [id number] Diabetic Retinal Eye Exam Completed 05/23/2007 [id number] Colonoscopy Completed Encounters Type Date Location Provider Dx Diagnosis Office Visit 05/24/2018 [facility] Chantelle Marker, E11.65 Type 2 diabetes 10:40a Medicine RPA-C mellitus with hyperglycemia I10 Essential (primary) hypertension F40.248 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 hyperlipidemia Office Visit 02/20/2018 11:20a [facility] Dmiitri Cheung Z00.01 Encounter for Yovany Martell M.D.,FACP general adult [address] medical exam w abnormal findings E11.65 Type 2 diabetes mellitus with hyperglycemia 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 I10 Essential (primary) hypertension M75.112 Incomplete rotatr-cuff tear/ruptr of l shoulder, not trauma R10.2 Pelvic and perineal pain Office Visit 12/06/2017 11:40a [facility] Dimitri Cheung F40.228 Other natural Yovany Martell M.D.,FACP environment type phobia Office Visit 11/08/2017 3:40p [facility] Dimitri Cheung F40.228 Other natural Yovany Martell M.D.,FAC environment type phobia Z12.11 Encounter for screening for malignant neoplasm of colon Z23 Encounter for immunization Office Visit 08/30/2017 2:00p [facility] Dimitri Cheung E11.65 Type 2 diabetes Yovany Martell M.D.,FACP mellitus with hyperglycemia N41.1 Chronic prostatitis I10 Essential (primary) hypertension Office Visit 04/26/2017 9:40a [facility] Rhea Cheung N41.0 Acute prostatitis Yovany Martell M.D.,FACP E11.65 Type 2 diabetes mellitus with hyperglycemia Office Visit 04/13/2017 10:00a [facility] Rhea Camarena, N39.0 Urinary tract Yovany Cline infection, site not specified Office Visit 01/27/2017 9:10a [facility] Rhea Cheung Z00.01 Encounter for Yovany Martell M.D.,FACP general adult [address] medical exam w abnormal findings E11.65 Type 2 diabetes mellitus with hyperglycemia I10 Essential (primary) hypertension G47.00 Insomnia, unspecified Z23 Encounter for immunization Office Visit 10/22/2016 Sushma Mack R19.06 Epigastric 7:40a Yovany Camarena M.D. swelling, mass or [address] lump Office Visit 08/17/2016 [facility] Rhea Cheung E11.65 Type 2 diabetes 8:50a Yovany Martell M.D.,FACP mellitus with hyperglycemia I10 Essential (primary) hypertension Office Visit 05/21/2016 11:40a [facility] Frederick J01.90 Acute sinusitis, Yovany Camarena M.D. unspecified [address] E11.65 Type 2 diabetes mellitus with hyperglycemia Office Visit 05/13/2016 2:20p [facility] Tanvir Grace J06.9 Acute upper Yovany Bautista M.D. respiratory [place] infection, unspecified Office Visit 03/02/2016 10:10a [facility] Dimitri Cheung E11.65 Type 2 diabetes [facility]ann[facility] Guillen [facility] hyperglycemia R25.8 Other abnormal involuntary movements B35.3 Tinea pedis Office Visit 11/25/2015 10:30a [facility] Dimitri Cheung Z00.01 Encounter for Yovany Martell M.D.,[facility] general adult medical exam w abnormal findings E11.65 Type 2 diabetes mellitus with hyperglycemia I10 Essential (primary) hypertension M10.9 Gout, unspecified Z11.59 Encounter for screening for other viral diseases K22.2 Esophageal obstruction B35.3 Tinea pedis Z23 Encounter for immunization Office Visit 08/19/2015 9:50a [facility] Dimitri Cheung E11.65 Type 2 diabetes Yovany Martell M.D.,[facility] mellitus with hyperglycemia I10 Essential (primary) hypertension M10.9 Gout, unspecified G47.00 Insomnia, unspecified Office Visit 05/13/2015 9:30a [facility] Dimitri Cheung E11.65 Type 2 diabetes Yovany Martell M.D.,[facility] mellitus with hyperglycemia G56.01 Carpal tunnel syndrome, right upper limb Z23 Encounter for immunization Office Visit 10/03/2014 10:40a [facility] Lenny Angel, 786.2 Cough Medicine [employer] Office Visit 08/27/2014 10:40a [facility] Tanvir Grace 465.9 URI Upper Medicine Son Bautista Respiratory Infections Acute Unspec Sites Office Visit 07/03/2014 9:00a [facility] Gurjit 401.9 Hypertension Unspec Medicine - Nikita Cartagena M.D. Rd 250.02 Diabetes Mellitus W/O Compl Type II Or Unspec Type Uncontrol 272.2 Hyperlipidemia Mixed 530.81 Esophageal Reflux 530.3 Esophageal Stricture & Stenosis 274.9 Gout Unspec 307.49 Sleep Disorder Other 278.00 Obesity Unspec 401.1 Hypertension Benign Office Visit 05/01/2014 9:00a [facility] Gurjit Cartagena 401.9 Hypertension Unspec Medicine - Son [address] 250.02 Diabetes Mellitus W/O Compl Type II Or Unspec Type Uncontrol 272.2 Hyperlipidemia Mixed 530.81 Esophageal Reflux 530.3 Esophageal Stricture & Stenosis 274.9 Gout Unspec 401.1 Hypertension Benign Office Visit 04/10/2014 9:00a [facility] Gurjit Cartagena, 401.9 Hypertension Unspec Medicine - Son [address] 250.02 Diabetes Mellitus W/O Compl Type II Or Unspec Type Uncontrol 272.2 Hyperlipidemia Mixed 530.81 Esophageal Reflux 530.3 Esophageal Stricture & Stenosis 274.9 Gout Unspec 780.4 Dizziness & Giddiness 723.1 Cervicalgia 307.49 Sleep Disorder Other 278.00 Obesity Unspec 401.1 Hypertension Benign Office Visit 03/06/2014 9:00a [facility] Gurjit Cartagena, 401.9 Hypertension Unspec Medicine M.DStanford 250.00 Diabetes Mellitus W/O Compl Type II Or Unspec Controlled 272.2 Hyperlipidemia Mixed 530.81 Esophageal Reflux 530.3 Esophageal Stricture & Stenosis 274.9 Gout Unspec 307.49 Sleep Disorder Other 278.00 Obesity Unspec 401.1 Hypertension Benign 250.02 Diabetes Mellitus W/O Compl Type II Or Unspec Type Uncontrol Office Visit 02/08/2014 1:40p [facility] Gurjit Cartagena, V70.0 Examination Medicine M.D. General Medical Routine AT [facility] 401.9 Hypertension Unspec 250.00 Diabetes Mellitus W/O Compl Type II Or Unspec Controlled 530.81 Esophageal Reflux 530.3 Esophageal Stricture & Stenosis 274.9 Gout Unspec 307.49 Sleep Disorder Other 278.00 Obesity Unspec Office Visit 09/02/2008 Neurosurgery Kamari Edwards 724.02 Spinal Stenosis, 10:15a Services Of Sushma Navarro M.D. Lumbar Region, W/O Neurogenic Claudication Plan of Treatment 06/28/2018 - Chantelle Baker, RPA-CE11.65 Type 2 diabetes mellitus with dmrrqmzeqgezrX92.02 Shortness of breathNew Orders:EKG, Ordered: 06/28/18
[2018-06-28 13:51] LABS: ABS Basophils 0.1 10^3/ul (0-0.2); ABS Eosinophils 0.2 10^3/ul (0-0.6); ABS Lymphocytes 1.9 10^3/ul (1.0-4.8); ABS Monocytes 0.6 10^3/ul (0-0.8); ABS Neutrophils 4.6 10^3/ul (1.5-7.7); Eosinophil % 2.7 %; Hematocrit 43 % (42-52); Hemoglobin 14.4 g/dL (14.0-18.0); Lymphocyte % 26.2 %; Mean Corpuscular HGB Conc 34 g/dL (31-36); Mean Corpuscular Hemoglobin 31 pg (27-31); Mean Corpuscular Volume 91 fL (80-94); Mean Platelet Volume 9.4 fL (7.4-10.4); Nucleated Red Blood Cells % 0.1; Platelet Count 202 10^3/uL (150-450); Red Blood Count 4.71 10^6 /uL (4.18-5.48); Red Cell Distribution Width 13 % (10.5-15); White Blood Count 7.4 10^3/uL (3.5-10.8)
[2018-06-28 14:07] LABS: ALT 46 U/L (7-52); AST 30 U/L (13-39); Albumin 4.4 g/dL (3.2-5.2); Albumin/Globulin Ratio 1.5 (1-3); Alkaline Phosphatase 49 U/L (34-104); Anion Gap 8 mmol/L (2-11); BUN/Creatinine Ratio 14.7 (8-20); Blood Urea Nitrogen 15 mg/dL (6-24); CO2 Carbon Dioxide 23 mmol/L (22-32); Calcium 9.3 mg/dL (8.6-10.3); Chloride 101 mmol/L (101-111); EGFR Non-African American 73.5 (>60); Globulin 2.9 g/dL (2-4); Glucose 243 mg/dL (70-100); Potassium 4.5 mmol/L (3.5-5.0); Sodium 132 mmol/L (135-145); Total Protein 7.3 g/dL (6.4-8.9)
[2018-06-28] MEDS ORDERED: Acetaminophen TAB* 325 MG PO PRN (15:08)
[2018-06-28] MEDS ORDERED: Dextrose 50% Syringe 50 ML* 25 GM/50 ML SYRINGE IV PUSH PRN (15:14)
[2018-06-28 15:40] LABS: C Reactive Protein 1.43 mg/L (<8.01)
--- NOTE | 2018-06-28 16:10 | HP ---
CC: MARA Zheng* HISTORY AND PHYSICAL: DATE OF ADMISSION: 06/28/18 PRIMARY CARE PROVIDER: MARA Zheng CHIEF COMPLAINT: Shortness of breath with exertion. HISTORY OF PRESENT ILLNESS: Jose Ramsey is a 62-year-old male with history of hypertension, dyslipidemia and diabetes, who has been having problems with dyspnea on exertion for the past 3 to 4 weeks. The patient stated that approximately 3 to 4 weeks ago he was walking towards mailbox and all of a sudden developed shortness of breath, which had been ongoing ever since. He stated that his shortness of breath is more pronounced with exertion, although he also feels short of breath when he wakes up in the morning. He stated that he has been sleeping very poorly and that had been going on for "years." The patient has history of being evaluated for obstructive sleep apnea, but he could not go through with the test because he could not sleep when he was supposed to be tested. In regards to his dyspnea on exertion, he denies any chest pain with it. He stated that his weight has been slowly increasing for the past several years and for the past 6 months he has probably gained about 15 pounds. Over the course of the past several weeks, he noted once an episode of bilateral lower extremity edema, but it was mild and resolved spontaneously. He denies any recent illnesses. His troponin checked in the emergency department was 0.2. He is going to be placed on overnight observation with a diagnosis of elevated troponin and dyspnea on exertion to further evaluate his cardiac status. PAST MEDICAL HISTORY: 1. Hypertension. 2. Dyslipidemia. The patient just was started on TriCor 3 to 4 weeks ago. 3. History of diabetes type 2. 4. History of multiple arthroscopic knee surgeries. 5. Tonsillectomy at the age of 13. 6. History of chronic left rotator cuff problem with no surgery in the past. 7. History of right upper back lipoma removal. 8. History of esophageal stricture, status post dilatations in the past. CURRENT MEDICATIONS: Include: 1. TriCor that was just started at 134 mg daily. 2. Metoprolol succinate 100 mg daily. 3. Losartan 100 mg daily. 4. Allopurinol 200 mg daily. 5. Omeprazole 20 mg daily. 6. Metformin ER 750 mg b.i.d. 7. Trulicity 1.5 mg subcutaneously weekly. ALLERGIES: Include CODEINE, DOXYCYCLINE, PENICILLIN, and SULFA. FAMILY HISTORY: Both parents had history of diabetes. Father in his 70s of unknown reasons. The patient's father had history of heart disease in his 60s. SOCIAL HISTORY: The patient has a history of drinking 4 glasses of wine a week. He denies any tobacco or drug use. 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 He lives with his , who is his surrogate. His 's name is Marlyn and home phone is [phone]. REVIEW OF SYSTEMS: Please see history of present illness. All the remaining 12 systems were reviewed with the patient and were otherwise negative. PHYSICAL EXAMINATION GENERAL: The patient is a very pleasant 62-year-old male with a BMI of 32, who is in no acute distress. Alert, awake, and oriented x3. VITAL SIGNS: Blood pressure of 129/74, heart rate of 93 and regular, respiratory rate 20, oxygen saturation 97% on room air, temperature of 97.4. HEENT: Head: Atraumatic, normocephalic. Eyes: Pupils are equal, reactive to light and accommodation. Oropharynx is clear. Mucosa moist. NECK: Supple. No JVD. No bruits bilaterally. RESPIRATORY: Clear to auscultation bilaterally. CARDIOVASCULAR: Regular rate and rhythm. No murmur. ABDOMEN: Soft, nontender. Bowel sounds are present in all 4 quadrants. EXTREMITIES: There is no edema. Pulses are +2 bilaterally. No clubbing or cyanosis. NEURO EVALUATION: Speech is clear. Cranial nerves II through XII are grossly intact. Motor strength is 5/5 bilaterally. DIAGNOSTIC STUDIES/LAB DATA: Laboratory data showed white blood cell count of 7.4, hemoglobin of 14.4, hematocrit of 43, and platelets of 202. Sodium was 132, potassium 4.5, chloride 101, carbon dioxide 23, BUN 15, creatinine 1.02. Liver function tests were unremarkable. Troponin of 0.2, brain natriuretic peptide was slightly elevated to 256. The patient's portable chest x-ray, impression: "No active cardiopulmonary disease." The patient's EKG showed sinus tachycardia with heart rate of 97 beats per minute with frequent PACs and nonspecific ST changes in lateral leads. The patient's D-dimer, ESR, and CRP levels are pending at the time of dictation. ASSESSMENT AND PLAN: 1. Dyspnea on exertion in a patient with history of hypertension and diabetes. At this point, the differential includes possibility of pulmonary embolism versus coronary artery disease/angina. The patient's pulmonary embolism is going to be ruled out with D-dimer. If D-dimer is negative, I do not believe we need to proceed with further evaluation in regards to that. We will continue observation of the patient on telemetry monitored bed with followup troponins. The patient is going to be continued on aspirin. If his troponins continue to be close to the current range and the patient continues to be comfortable without any chest pain or discomfort, the patient likely would benefit from treadmill nuclear cardiac stress test in the morning. We will also order transthoracic echocardiogram to evaluate further the patient's LV function. 2. For the patient's diabetes, the patient's oral medications are going to be held and he is going to be placed on insulin sliding scale. 3. For the patient's hypertension, the patient's losartan as well as metoprolol is going to be continued. 4. For DVT prophylaxis, the patient is going to be placed on heparin subcutaneously. 5. The patient's code status is full and his surrogate is his . TIME SPENT: Approximately 62 minutes was spent on admission of this patient, more than half that time was spent [id number] with the patient during the interview and physical exam. [id number]/[facility] #: [id number] ROSALIND
[2018-06-28 17:19] LABS: Erythrocyte Sed Rate 25 mm/Hr (0-19)
[2018-06-28] MEDS: Aspirin EC TAB* 81 MG TAB.EC PO SCH (17:21)
[2018-06-28] MEDS: Insulin LISPRO* 1 UNITS UNIT SUBCUT SCH ×2 (17:21→20:38)
[2018-06-28 17:30] LABS: Troponin I 0.26 ng/mL (<0.04)
[2018-06-28] MEDS: Heparin VIAL(*) 5000 UNITS/ML VIAL (FIVE THOUSAND) SUBCUT SCH (20:39)
[2018-06-29] MEDS: Heparin VIAL(*) 5000 UNITS/ML VIAL (FIVE THOUSAND) SUBCUT SCH (06:20)
[2018-06-29 06:21] LABS: ABS Basophils 0.1 10^3/ul (0-0.2); ABS Eosinophils 0.3 10^3/ul (0-0.6); ABS Lymphocytes 1.9 10^3/ul (1.0-4.8); ABS Monocytes 0.6 10^3/ul (0-0.8); ABS Neutrophils 4.2 10^3/ul (1.5-7.7); Eosinophil % 4.9 %; Hematocrit 42 % (42-52); Hemoglobin 14.3 g/dL (14.0-18.0); Lymphocyte % 26.8 %; Mean Corpuscular HGB Conc 34 g/dL (31-36); Mean Corpuscular Hemoglobin 30 pg (27-31); Mean Corpuscular Volume 90 fL (80-94); Mean Platelet Volume 9.6 fL (7.4-10.4); Nucleated Red Blood Cells % 0.1; Platelet Count 171 10^3/uL (150-450); Red Blood Count 4.69 10^6 /uL (4.18-5.48); Red Cell Distribution Width 13 % (10.5-15); White Blood Count 7.2 10^3/uL (3.5-10.8)
[2018-06-29 06:34] LABS: BUN/Creatinine Ratio 15.5 (8-20); Calcium 8.9 mg/dL (8.6-10.3); EGFR Non-African American 72.7 (>60); HDL Cholesterol 25.3 mg/dL; Potassium 4.1 mmol/L (3.5-5.0)
[2018-06-29] MEDS: Insulin LISPRO* 1 UNITS UNIT SUBCUT SCH ×2 (08:35→13:08)
[2018-06-29] MEDS: Aspirin EC TAB* 81 MG TAB.EC PO SCH (08:36)
[2018-06-29] MEDS ORDERED: Pantoprazole TAB * 40 MG TAB PO SCH (09:00)
[2018-06-29] MEDS ORDERED: Allopurinol TAB* 100 MG PO SCH (09:00)
[2018-06-29] MEDS ORDERED: Losartan TAB* 25 MG PO SCH (09:00)
[2018-06-29] MEDS ORDERED: Aminophylline IV* 25 MG/ML 10 ML VIAL ONE (09:16)
[2018-06-29] MEDS ORDERED: Regadenoson* 0.4 MG/5 ML SYRINGE ONE (09:16)
[2018-06-29] MEDS ORDERED: Diazepam TAB(*) 5 MG PO PRN (09:34)
[2018-06-29] MEDS ORDERED: diPHENhydraMINE PO* 25 MG PO PRN (09:34)
[2018-06-29] MEDS ORDERED: NS 0.9% 1000 ML** 1,000 ML IV SCH (09:45)
[2018-06-29] MEDS ORDERED: Perflutren Lipid Microsphere* 3 ML VIAL ONE (09:54)
[2018-06-29 10:31] VITALS: BP 138/100
--- NOTE | 2018-06-29 11:40 | ECHO ---
*[facility]* [place] [address] Fax #: [phone] Transthoracic Echocardiogram Patient: Braulio, Height: 70 in / Jose Jennings 177.8 cm : 1955 Weight: 221.5 lb / Study Date: 06/29/2018 100.7 kg Age: 62 BP: 147 / 67 Gender: M BMI/BSA: 31.9 kg/m^2 HR: 113 bpm / 2.18 m^2 *Assistant Director Of Admissions: * Maryana Gatica [facility] *Referring Physician: Juanita Lucero *Reading Physician: Mila Vargas MD Indications: SOB. Elevated TROP. History: Risk factors: Hypertension. Diabetes mellitus. Dyslipidemia. Conclusions Summary: 1. Impressions: No previous study was available for comparison. 2. Left ventricle: The cavity size is mildly dilated. Wall thickness is mildly increased. Systolic function is severely reduced. The estimated ejection fraction is 25%-30% Globally and there is severe inferior/posterior wall hypokinesis. Left ventricle ejection fraction about 30%. Left ventricular diastolic function parameters are indeterminate. 3. Left atrium: The atrium is mildly dilated. 4. Mitral valve: There is moderate regurgitation. 5. Tricuspid valve: There is trivial regurgitation. Study data: Transthoracic echocardiogram. Procedure: Transthoracic echocardiography was performed. Image quality was adequate. Intravenous contrast (Definity, 3 mls) was administered. Complete 2D, spectral Doppler, and color flow Doppler. Location: Procedure room. Patient status: Inpatient. Patient room number: 443 01. Rhythm: Tachycardia. Findings Left ventricle: The cavity size is mildly dilated. Wall thickness is mildly increased. Systolic function is severely reduced. The estimated ejection fraction is 25%-30% Globally and there is severe inferior/posterior wall hypokinesis. Left ventricle ejection fraction about 30%. Regional wall motion abnormalities: Global hypokinesis with multiple regional wall motion abnormalities. Left ventricular diastolic function parameters are indeterminate. Right ventricle: The cavity size is normal. Systolic function is normal. Left atrium: The atrium is mildly dilated. Right atrium: The atrium is normal in size. Mitral valve: The leaflets are normal thickness. There is no evidence of stenosis. There is moderate regurgitation. The valve area by pressure half-time is 3.8 cm^2. The valve area index by pressure half-time is 1.74 cm^2/m^2. The mean diastolic gradient is 2.0 mm Hg. The peak diastolic gradient is 3.0 mm Hg. Aortic valve: The valve is trileaflet. The leaflets are mildly thickened. There is no evidence of stenosis. There is no significant regurgitation. The ratio of LVOT to aortic valve peak velocity is 0.73. The ratio of LVOT to aortic valve mean velocity is 0.68. The mean systolic gradient is 2.0 mm Hg. The peak systolic gradient is 3.0 mm Hg. Tricuspid valve: The leaflets are normal thickness. There is no evidence of stenosis. There is trivial regurgitation. Pulmonic valve: The leaflets are normal thickness. There is trivial regurgitation. The peak systolic gradient is 1.0 mm Hg. Aorta: The aorta is mildly dilated. Aortic arch: The aortic arch is appears normal. Pericardium: There is no significant pericardial effusion. Pulmonary arteries: The main pulmonary artery is normal-sized. Systemic veins: Inferior vena cava: The vessel is dilated. The respirophasic diameter changes are blunted (< 50%). Measurements Left ventricle Value Ref Aortic valve Value Ref IVON, LAX 5.1 cm 4.2 - 5.8 Nusrat diam, ED 2.3 cm ---- ESD, LAX (H) 4.6 cm 2.5 - 4.0 Peak v, S 0.87 m/sec ---- FS, LAX (L) 11 % 25 - 43 VTI, S 13.3 cm ---- PW, ED, LAX (H) 1.2 cm 0.6 - 1.0 Mean grad, S 2.0 mm Hg ---- EF (L) 23 % 52 - 72 Peak grad, S 3.0 mm Hg ---- E', lat nusrat, TDI (L) 6.8 cm/sec >=10.0 E/e', lat nusrat, 8 Mitral valve Value Ref TDI Peak E 0.52 m/sec ---- E', med nusrat, TDI 11.3 cm/sec >=7.0 Peak A 0.72 m/sec ---- E/e', med nusrat, 5 Decel time 98 ms ---- TDI PHT 58 ms ---- E', avg, TDI 9.1 cm/sec Mean grad, D 2.0 mm Hg ---- E/e', avg, TDI 6 <=14 Peak grad, D 3.0 mm Hg ---- Peak E/A ratio 0.7 ---- LVOT Value Ref MVA, PHT 3.8 cm^2 ---- Peak gregory, S 0.64 m/sec ERO, PISA 0.11 cm^2 ---- Mean grad, S 1 mm Hg MR vol, PISA 13 ml ---- Ventricular septum Value Ref Pulmonic valve Value Ref IVS, ED, LAX (H) 1.3 cm 0.6 - 1.0 Peak v, S 0.49 m/sec ---- Peak grad, S 1.0 mm Hg ---- Right ventricle Value Ref IVON, LAX 2.7 cm Aortic root Value Ref IVON minor ax, A4C 3.1 cm 1.9 - 3.5 Root diam 3.6 cm <4.3 mid Ascending aorta Value Ref Left atrium Value Ref AAo AP diam, S 3.5 cm ---- AP dim, ES (H) 4.40 cm 3.00 - 4.00 Aortic arch Value Ref ML dim, A4C 5.2 cm Arch diam 2.8 cm ---- SI dim, A4C 5.2 cm Vol/bsa, ES, A/L 34 ml/m^2 16 - 34 Inferior vena cava Value Ref Diam 2.5 cm ---- Right atrium Value Ref SI dim, ES 3.8 cm 3.4 - 5.3 ML dim, ES, A4C 4.2 cm 2.6 - 4.4 Estimated RAP 8 mm Hg Legend: (L) and (H) tho values outside specified reference range. Prepared and electronically signed by Mila Luo MD 06/29/2018 11:39
[2018-06-29] MEDS ORDERED: Atorvastatin* 80 MG TAB PO ONE (11:54)
[2018-06-29] MEDS: Metoprolol Succinate XL TAB* 100 MG PO SCH ×2 (11:59→12:36)
[2018-06-29] MEDS ORDERED: Midazolam* 1 MG/ML 5 ML VIAL (5 MG) ONE (12:09)
[2018-06-29] MEDS ORDERED: fentaNYL* 50 MCG/ML 2 ML VIAL (100 MCG VIAL) ONE (12:09)
[2018-06-29] MEDS ORDERED: nitroGLYCERIN DRIP* 25,000 MCG/250 ML BTL ONE (12:10)
[2018-06-29] MEDS ORDERED: Heparin(*) 1000 UNIT/ML 10 ML VIAL CATH LAB IV ONE (12:10)
[2018-06-29] MEDS ORDERED: Lidocaine 1% INJ* 10 MG/ML 30 ML SDV ONE (12:10)
[2018-06-29] MEDS ORDERED: Iohexol 350 (CONTRAST) 200 ML MDV IV ONE (12:10)
[2018-06-29] MEDS ORDERED: VERAPAMIL 2.5 MG/ML 2 ML VIAL ** 5 mg/2 ml ONE (12:10)
[2018-06-29] MEDS ORDERED: Heparin 2 UNITS/ML IVPREMIX* 2,000 UNIT/1,000 ML BAG IV ONE (12:12)
[2018-06-29] MEDS ORDERED: Metoprolol Tartrate IV* 1 MG/ML 5 ML VIAL ONE (12:42)
--- NOTE | 2018-06-29 14:01 | CONS ---
CONSULTATION REPORT: DATE OF CONSULT: 06/29/18 PRIMARY CARE PHYSICIAN: MARA Zheng ATTENDING PHYSICIAN: Dr. Seymour Boyd, Cardiology* (dictated by Teresa Domínguez NP). REASON FOR CONSULT: Abnormal stress test, complaints of shortness of breath with troponinemia. CHIEF COMPLAINT: Shortness of breath. HISTORY OF PRESENT ILLNESS: This is a pleasant 62-year-old gentleman with a notable history of hypertension, diabetes and hyperlipidemia, who presented to [facility] on 06/28/18 at the discretion of his primary care provider due to sudden onset of shortness of breath and dyspnea on exertion occurring 3 to 4 weeks ago. The patient states that he has been in his usual state of health. Denies experiencing chest discomfort, palpitations, sensation of heart racing, weight gain, dizziness, or syncope. Does state that 2 to 3 days ago, he noticed swelling involving his right lower extremity and for the past 3 to 4 weeks, he has been noticing shortness of breath, specifically with incline. He states that his symptoms have not increased in regards to frequency or intensity, but have been persisting which is why he opted for evaluation with his primary physician yesterday. While being evaluated in the emergency department, he was risk stratified with a D-dimer, which was normal. Initial troponin was elevated at 0.20, thus the patient was admitted to [address] [place] [address] for chest pain, rule out ACS. The patient had enzymes that were cycled, troponin peaked at 0.26. The patient underwent an exercise nuclear stress test today. I personally spoke with Dr. Seymour Boyd, Cardiology, who states that the test was aborted prematurely due to the patient having shortness of breath induced early during protocol with hypotension and EKG changes. The patient is currently symptom-free. PAST MEDICAL HISTORY: 1. Hypertension. 2. Diabetes. 3. Gout. 4. Hyperlipidemia. PAST SURGICAL HISTORY: Tonsillectomy, right upper back lipoma removal, multiple arthroscopic knee surgeries, and esophageal stricture, status post dilatations in the past. HOME MEDICATIONS: Include: 1. Fenofibrate 134 mg a day. 2. Toprol-XL 100 mg a day. 3. Losartan 100 mg a day. 4. Allopurinol 200 mg a day. 5. Prilosec 20 mg a day. 6. Metformin 750 mg p.o. b.i.d. 7. Trulicity 1.5 mg subcutaneously q. week. FAMILY HISTORY: Father at the age of 73 due to complications of heart disease. He also was a diabetic. His mother at the age of 74, denied any history of heart disease. Otherwise, family history is noncontributory. SOCIAL HISTORY: The patient is and lives at home with his . He is retired from the [employer]. He reports never smoking tobacco products. He consumes 3 to 4 glasses of wine a week. Denies illegal drug use. In regards to activities, he stays active doing yard work and he used to hike ; however, over the last 4 weeks, his activity has been limited due to shortness of breath. REVIEW OF SYSTEMS: All systems have been reviewed and otherwise negative except as above mentioned in the HPI. PHYSICAL EXAM: Temperature 97.7, pulse , respirations 16, oxygenation 98 % on room air, blood pressure 138/100. General: The patient is alert and oriented x3, cooperative with exam, appears well nourished, in no apparent distress. HEENT: Head is atraumatic, normocephalic. Oral mucosa is moist. Tongue is midline. Neck: Supple. Trachea midline. No JVD. No carotid bruits. Cardiac: Normal S1, S2. Regular rate and rhythm. No murmur, rub, or gallop noted. Lungs: Auscultated posteriorly. No evidence of adventitious breath sounds. /GI: Abdomen is distended, firm, nontender. Normoactive bowel sounds x4. Extremities: No pedal edema, no clubbing, no cyanosis. Peripheral Vascular: 2+ brachial and dorsalis pedis pulses palpated bilaterally and symmetrically. Skin: Intact. No evidence of jaundice, rashes , or ecchymosis appreciated. DIAGNOSTIC STUDIES/LAB DATA: Blood work obtained on 06/29/18: White count 7.2 , hemoglobin 14.3, hematocrit 42, platelets 171. D-dimer less than 200. Sodium 135, potassium 4.1, chloride 104, carbon dioxide 23, BUN 16, creatinine 1.03. Troponin peaked on 06/28/18 at 0.26. LDL 82, triglycerides 376, total cholesterol 182. ECG from 06/29/18 at 07:00 demonstrates sinus tachycardia, rate [address] abnormalities. No ST elevation noted. Exercise stress test: Please see report in the patient's chart. Visual report has not been transcribed. Echocardiogram, 06/28/18: LVEF 25% to 30%. Globally, there is severe inferior posterolateral wall hypokinesis, mild left atrial dilatation, moderate mitral regurgitation, trivial tricuspid regurgitation. ASSESSMENT AND PLAN: 1. Three- to four-week period of sudden onset dyspnea on exertion with troponinemia and abnormal stress test. The patient had troponinemia that peaked at 0.26 on 06/28/18. At this time, we recommend proceeding with left heart catheterization with Dr. Seymour Boyd. The patient is on aspirin, beta- stephan, and statin therapy. LDL is 82. However, high-intensity statin therapy has been initiated during this stay. At this current time, the patient is stable and asymptomatic. Procedure was reviewed with the patient including risks and benefits not limited to bleeding, infection, vessel damage, risk of stroke, heart attack, , possible requirement of dual antiplatelet therapy, cardiac stent, and referral to bypass surgery. The patient verbalized an understanding and consent will be signed and obtained by Dr. Seymour Boyd. We will make further recommendations following left heart catheterization. 2. Severe left ventricular dysfunction. LVEF 25% to 30% with severe focal wall motion abnormality involving the inferior and posterior scott. Likely ischemic cardiomyopathy is underlying etiology. The patient is to have left heart catheterization. He is compensated on physical examination. We would recommend continuing Toprol 100 mg a day, losartan 100 mg a day. We would recommend evaluating the patient for initiation of sodium-glucose cotransporter- 2 inhibitors given systolic heart failure, presumed coronary artery disease, and diabetes. The patient would likely benefit in the future transitioning to Entresto therapy. We will follow closely. We will evaluate need for LifeVest prior to discharge. 3. History of hypertension. Blood pressure currently controlled. Continue ARB and beta-stephan therapy. 4. Disposition: Pending course. The patient is full code. He is to have left heart catheterization today with Dr. Seymour Boyd. We will make further recommendations following cardiac procedure. Dr. Seymour Boyd has seen and examined the patient and agrees with the above assessment and plan. Thank you for this kind consultation. TERESA DOMÍNGUEZ, SECTION LEADER SCREEN PRINTING [id number]/[facility] #: [id number] ROSALIND
--- NOTE | 2018-06-29 15:23 | CATH ---
CC: MARA Zheng; Dr. Lenny Swanson, Dept. Of Cardiothoracic Surgery, [facility]* DATE OF CARDIAC CATHETERIZATION: 06/29/2018. REASON FOR CARDIAC CATHETERIZATION: Patient with a history of severe shortness of breath with exertion with a high risk exercise nuclear stress test with significant left ventricular systolic dysfunction on echocardiogram with segmental wall motion abnormalities suggesting the possibility of severe triple vessel disease or left main. Assess coronary anatomy. PROCEDURE: Coronary arteriography, left heart catheterization. CONSENT: The patient was interviewed and examined in the stress lab where the risks and benefits were explained. He understood them and wished to proceed. APPROACH: The right radial artery was assessed in the holding area in the lab support tech and felt to be acceptable for an approach and as such this was the approach taken. PRECARDIAC CATHETERIZATION LABORATORY RESULTS: Hemoglobin and hematocrit of 14.3 and 42 with a platelet count of 171,000, BUN and creatinine is 16 and 1.03 ; sodium 135, potassium 4.1, chloride 104, bicarb 23, troponin 0.2. EQUIPMENT UTILIZED: 1. Right radial artery sheath - a 6-Cymro Glidesheath. 2. Diagnostic wire with a 260 cm length Quezada J-wire. 3. Diagnostic coronary catheters - TIG4 5-Cymro catheter for the right coronary artery, an FL3.5 and eventually FL4 curve 5-Cymro catheter for the left coronary artery. 4. Left heart catheterization catheter 5-Cymro radial pigtail catheter. MEDICATIONS GIVEN DURING THE PROCEDURE: Radial artery cocktail, including 5, 000 units of Heparin, 300 mcg of Nitroglycerin, and 3 mg of Verapamil. An additional 2,000 units of Heparin was given to make a total of 7,000 units of Heparin during the case. 2.5 mg of Lopressor intravenously. 1.5 mg total of Versed. Lidocaine locally. PROCEDURE: The patient was brought to the cardiovascular laboratory where formal time-out was performed. He was prepped and draped in sterile fashion. Under ultrasound guidance, the right radial artery was entered and and the sheath was placed. Diagnostic coronary arteriography was performed. Following that, left heart catheterization was performed utilizing the 5-Cymro radial pigtail catheter. Following that, a discussion was had with the surgical colleagues at [facility] and the decision was made to leave the sheath in place and transfer the patient to [facility] for urgent cardiovascular surgery. The patient was stable at the end of the case. The total contrast used was 35 cc of Omnipaque dye. The radiation exposure included 8.1 minutes of fluoro time, the air kerma radiation was 1,420 milligray. The DAP radiation was 8,240 microgray per meter square. RESULTS: HEMODYNAMIC DATA: Left heart catheterization revealed central aortic pressure of approximately 101/65 with a mean of 80. Of note, frequent PAC's were noted making the waveforms not uniform. Left ventricular was 100 to 105/left ventricular end- diastolic pressure of approximately 10. CORONARY ARTERIOGRAPHY: A. Right coronary artery - a dominant vessel supplying a small PDA and posterior LV branch. The PDA extends in the proximal one-third of the inferior wall. The right coronary artery is diffusely disease with an abrupt caliber change in its proximal portion of 60 to 65 percent. The proximal to mid portion has diffuse disease with as much as 85 to 90 percent narrowing. It becomes more normal in appearance in the distal portion as it traverses the inferior wall of the heart to the PDA and posterior LV branch. There was a long acute marginal branch that seemed to extend toward the distal inferior wall. It is small in caliber and has diffuse disease. B. Left coronary artery: 1. Left main - the left main appears to have a distal dissected area with a high grade of stenosis of at least 85 to 90 percent. 2. Left anterior descending artery - the left anterior descending artery in the IRISH caudal view appears to have a significant lesion in its ostium as much as 70 percent. Past this point in the left anterior descending artery in the proximal to mid portion, there appears to be an eccentric ulcerated areas in the LAD with a narrowing of 70 percent. The mid portion of the vessel also appears to have a critical 85 percent lesion just after the take off of a second diagonal branch. The mid and distal diagonal branches are somewhat small in caliber, but may be bypassable. Of note, proximally there may be a stump of a very high posteriorly directed diagonal branch. I cannot see the distal vessel filling. 3. Circumflex artery - a nondominant vessel supplying a totally occluded first obtuse marginal branch that shows retrograde filling at the end of the injection. I believe it is bypassable in size. The second obtuse marginal branch has a long proximal to mid critically diseased area followed by a more normal appearing vessel. The third low lying obtuse marginal branch has diffuse disease with 75 percent narrowing noted in its proximal portion. OVERALL ASSESSMENT: Significant triple vessel disease involving the proximal and mid right coronary artery, distal left main, ostial, proximal and mid LAD, and first, second and third obtuse marginal branches as discussed above. Overall left ventricular end-diastolic pressure is somewhat low which may represent him being NPO all day despite the fact that we started hydration. A bolus of fluid was given for his somewhat lower pressure. He is completely asymptomatic at this point, but obviously in critical need of bypass surgery. One other factor must be assessed after transfer to [facility], the patient appeared to have moderate mitral regurgitation on echocardiogram and that will have to be addressed. I did personally discuss that with Dr. Swanson and he plans for his routine transesophageal echocardiogram exam to be performed at the time of surgery. The patient will be transferred to [facility] as soon as possible. [id number]/[facility] #: [id number] ROSALIND
--- NOTE | 2018-06-29 16:04 | TRS ---
CC: Dr. Wills; Accepting physician from [facility] Dr. Lenny Swanson; Dr. Crowell; MARA Zheng.* TRANSFER SUMMARY: DATE OF ADMISSION: 06/28/18. DATE OF TRANSFER TO [facility]: 06/29/18. PRIMARY CARE PROVIDER: MARA Zheng. REASON FOR TRANSFER: Severe triple-vessel coronary artery disease with cardiomyopathy and EF of 25% to 30% as well as moderate mitral regurgitation. All of those findings are new. SECONDARY DIAGNOSES: 1. Hypertension. 2. Dyslipidemia. 3. Diabetes type 2. 4. History of knee arthroscopic surgery. 5. Tonsillectomy at the age of 13. 6. History of right upper back lipoma removal. 7. History of esophageal stricture, status post dilatations in the past. MEDICATIONS AT THE TIME OF TRANSFER: Please note that the patient received intravenous Lovenox during the cardiac catheterization as well as a dose of diazepam at 2.5 mg p.o. once. Otherwise, the patient had been during the hospital stay on: 1. Aspirin 81 mg daily. 2. Lipitor 80 mg daily. 3. Allopurinol 200 mg daily. 4. Losartan 100 mg daily. 5. Protonix 40 mg daily. 6. Metoprolol succinate 100 mg daily. PROCEDURES PERFORMED DURING THE HOSPITAL STAY: Included cardiac catheterization with Dr. Crowell on 06/29/18 with a preliminary report of severe 3-vessel coronary disease with a completely occluded RCA, LAD dissection, and first marginal occlusion. LABORATORY DATA AND STUDIES PERFORMED DURING THE HOSPITAL STAY: Included: Echocardiogram obtained on 06/29/18 showed left ventricle mildly dilated with wall thickness mildly increased. Systolic function severely reduced with EF of 25% to 30%. Globally, there is severe inferior-posterior wall hypokinesis with left ventricular ejection fraction of 30. Left ventricular diastolic function parameters are indeterminate. The left atrium is mildly dilated. There is moderate mitral regurgitation and trivial tricuspid regurgitation. ESR was noted to be 25. D-dimer was below 200. On 06/29/18 sodium of 135, potassium 4.1, chloride 112, carbon oxide 23, BUN 16 , creatinine 1.03. Troponin was ranging from 0.2 to 0.26 throughout the hospital stay. The patient's triglycerides were 376, cholesterol total of 182, LDL of 82, and HDL of 25. CBC on 06/29/18 showed white blood cell count of 7.2, hemoglobin 14.3, hematocrit of 42 , and platelets of 171. CONSULTATIONS DURING HOSPITAL STAY: Included cardiac catheterization and a consultation by Dr. Croewll. HOSPITALIZATION COURSE: Jose Ramsey is a 62-year-old male, who presented with dyspnea on exertion on 06/28/18 to the ED for evaluation. The patient's troponin was 0.2. Subsequent evaluation during treadmill stress test showed marked EKG changes and hypotension when starting exercise. At that point, patient was taken to the microbiology lab manager and cardiac catheterization showed severe triple-vessel coronary artery disease as above. Dr. Crowell arranged for the patient to be transferred to [facility] under the care of Dr. Swanson for further management and likely cardiothoracic surgery. PHYSICAL EXAMINATION AT THE TIME OF DISCHARGE: Blood pressure 138/100, heart rate is 105 and regular, respiratory rate 16, O2 saturation 95% on room air, temperature 97.7. General: The patient is a pleasant 52-year-old female who is in no acute distress. Alert and oriented x3. HEENT: Head atraumatic normocephalic. Eyes: Pupils equal reactive to light and accommodation. Oropharynx is clear. Mucosa moist. Neck: Supple. No JVD, no bruit bilaterally. Cardiovascular: Regular rate and rhythm. No murmur. Respiratory : Clear to auscultation bilaterally. Abdomen: Soft, nontender. Bowel sounds are present in all 4 quadrants. Extremities: There is no edema. Pulses are +2 bilaterally. No clubbing or cyanosis. The patient's cardiac cath was performed from right radial access that is currently immobilized and there is no evidence of hematoma. Please note that this is a short summary of the patient's hospitalization. Please refer to further medical records for details. CONDITION OF TRANSFER: Stable. TIME SPENT: Approximately 45 minutes was spent on the patient's transfer. [id number]/[facility] #: [id number] [facility] SYSTEM[facility]hyanne
[2018-06-29] MEDS ORDERED: Atorvastatin* 40 MG TAB PO SCH (17:00)
== END 2018-06-29 15:15 | disposition short-term general hospital (02) ==
LOC: ED 12:43 → MEDTELE 15:08
PROVIDERS: ADMIT Internal Medicine; ATTEND Internal Medicine
DX: I25.10 Atherosclerotic heart disease of native coronary artery without angina pectoris (principal); I42.9 Cardiomyopathy, unspecified; I34.0 Nonrheumatic mitral (valve) insufficiency; R06.02 Shortness of breath; R05 Cough; R60.9 Edema, unspecified; I10 Essential (primary) hypertension; E78.5 Hyperlipidemia, unspecified; E11.9 Type 2 diabetes mellitus without complications; Z98.890 Other specified postprocedural states; Z90.89 Acquired absence of other organs; Z86.018 Personal history of other benign neoplasm; Z87.19 Personal history of other diseases of the digestive system; Z79.82 Long term (current) use of aspirin; Z88.0 Allergy status to penicillin; Z88.2 Allergy status to sulfonamides; Z88.6 Allergy status to analgesic agent; M10.9 Gout, unspecified; R79.89 Other specified abnormal findings of blood chemistry
CPT/HCPCS: 36415; 71045; 76937; 78451; 80048; 80053; 80061; 83880; 84484; 85025; 85379; 85652; 86140; 93005; 93306; 93458; 96372; 99284; A9270-GY; A9502; C1769; C8929; G0378; J0280; J1644; J2250; J2785; J3010; J3490

== ENCOUNTER 2018-07-23 08:29 | Emergency (ER) | payer BC ==
--- OUTSIDE RECORDS SUMMARY | 2018-07-23 08:34 | XMS REPORT | Continuity of Care Document ---
:1955 External Reference #:[id number] Author Name Kristi Monge Care Team Providers Name Role Phone Randa Galvan M.D. Primary Care Physician Unavailable Payers Date Identification Numbers Payment Provider Subscriber Effective: 2011 Policy Number: [id number] [facility] [employer] Name: [id number] [address] PayID: [id number] ALBERTA Duvall [address] Expires: 2011 Policy Number: [id number] [facility] Health Plan o [employer] Number: [id number] Attn [facility] Claims Dept Group Name: [facility] [address] PayID: [id number] [place] [address] Advance Directives Type Date Description Status Comment [...] Note: s/p dilatation Primary insomnia Dimitri Martell M.D.,FACP Onset: 01/27/2017 Inactive Problems Diabetes mellitus Gurjit Cartagena M.D. Onset: 02/28/2014 Inactive: 03/02/2016 Family History Date Family Member(s) Observation Comments : (1996) Father due to Heart or liver problem Father Diabetes : (age 73 Years) Mother due to Unknown reason Siblings 2 sisters Social History Type Date Description Comments Sex Unknown Marital Status 2 Times Lives With Occupation Businessman retired ETOH Use Denies alcohol use Tobacco Use Start: Unknown Patient has never smoked Recreational Drug Use Denies Drug Use Smoking Status Reviewed: 07/21/18 Patient has never smoked Exercise Type/Frequency Plays sports 3 times a ( on hold now) week Allergies, Adverse Reactions, Alerts Active Allergies Reaction Severity Comments Date Penicillins 02/08/2014 Bactrim Urticaria 02/08/2014 Doxycycline Urticaria 02/08/2014 Codeine nausea 08/27/2014 Medications Active Medications SIG Qnty Indications Ordering Date Provider Atorvastatin Calcium 1 by mouth every 90tabs Emiliano España 07/21/2018 evening Saldaña, DO 80mg Tablets FACC Clopidogrel 1 by mouth every day 90tabs I25.2 Emiliano España 07/21/2018 Bisulfate Saldaña, DO 75mg FACC Tablets Farxiga one by mouth every 30tabs Randa Cole, 07/14/2018 10mg Tablets in the morning MD Grant Anti-Embolism use daily as 2Pairs R60.0 Randa Galvan, 07/13/2018 Stockings Continuing directed MD Care/Knee/LG/Reg Misc Endocet 1-2 tablets 2x/day 28tabs Randa Galvan, 07/13/2018 5-325mg as needed for pain Tablets Furosemide Take one by mouth 30tabs Randa Galvan, 07/05/2018 40mg Tuesday, and Tablets Tuesday Metformin HCL ER take 1 tablet twice 60tabs Tanvir Grace 05/24/2018 a day. Son Bautista 750mg Tablets ER 24HR Trulicity inject 2ml Dimitri Cheung 08/30/2017 1.5mg/0.5ML subcutaneously [place], Solution Pen-Inject weekly Son,FACP Allopurinol 2 by mouth every day 180tabs Tanvir Grace 08/19/2015 100mg Son Bautista Tablets Accu-Check Glucose check 2-3 times a 1units Gurjit Jyoino, 03/06/2014 Monitor day M.D. Device Accu-Check as directed 100units Randa Galvan, 03/06/2014 Robin SHEN Strips Accu-Chek Fastclix use as directed dx 102units Gurjit Joyino, 03/06/2014 Lancets code: dm type ii M.D. Misc 250.02 Hydrocodone-Acetamin 1 or 2 tabs by mouth Unknown ophen every 6-8 hours as 5-325mg Tablets needed for pain Carvedilol 1 by mouth twice a Unknown 6.25mg day Tablets Aspirin 81 1 by mouth every day Unknown 81mg Tablets DR Losartan Potassium take 1 tablet by 90tabs Dimitri Cheung mouth once daily [place], 100mg Tablets M.D.,FACP Omeprazole 1 by mouth every day 90tabs Randa Galvan, 20mg MD Tablets DR History Medications Atorvastatin Calcium 1 by mouth every Unknown 07/11/2018 - 40mg day 07/21/2018 Tablets Potassium Chloride take one 30tabs Randa Galvan, 07/05/2018 - Meera ER capsule/tablet by 07/21/2018 10Meq Tablets ER mouth twice a day Fenofibrate 1 by mouth every 30caps E78.2 Tanvir Grace 05/24/2018 - 134mg day Son Bautista 07/21/2018 Capsules Lunesta 1 tablet by mouth 30tabs G47.00 Dimitri Cheung 02/20/2018 - 3mg Tablets at bedtime, as Jayshree, 07/13/2018 needed MCordelia,FACP Sertraline HCL 1/2 qd for 3 wks 30tabs Dimitri Cheung 02/20/2018 - 50mg then 1 by mouth Jayshree, 06/28/2018 Tablets every day M.DStanford,FACP Citalopram 1/2 by mouth every 30tabs Dimitri Cheung 12/06/2017 - Hydrobromide day for 3 wks then Jayshree, 03/13/2018 20mg Tablets stop M.D.,FACP Citalopram 1 by mouth every 30tabs Dimitri Cheung 11/08/2017 - Hydrobromide day [place], 12/06/2017 10mg Tablets Son,FACP Amlodipine Besylate 1 by mouth every 30tabs Dimitri Cheung 07/01/2017 - 2.5mg day [place], 06/28/2018 Tablets Son,FACP Ciprofloxacin HCL si twice a day 28tabs N41.0 Dimitri Cheung 04/26/2017 - 500mg x 7 days [place], 05/24/2017 Tablets Son,FACP Ciprofloxacin HCL twice a day 28tabs N39.0 [place] 04/13/2017 - 500mg [place], 04/26/2017 Tablets Son Metformin HCL 1 by mouth 3x a 90tabs Tanvir Grace 04/04/2017 - 500mg day Son Bautista 05/24/2018 Tablets Invokamet 1 po bid 60tabs Dimitri Cheung 02/11/2017 - 50-500mg [place], 04/04/2017 Tablets Son,FACP Belsomra 1 by mouth every 30tabs Dimitri Cheung 01/27/2017 - 10mg Tablets night at bedtime [place], 03/03/2017 Son,FACP Xigduo XR 1 tab po bid 60tabs Dimitri Cheung 01/27/2017 - 5-500mg Tablets (patient bringing [place], 02/11/2017 ER 24HR copay card) Son,FACP Rosuvastatin Calcium 1 by mouth every 90tabs Dimitri Cheung 11/02/2016 - 5mg night at bedtime [place], 05/24/2018 Tablets Son,FACP Metformin HCL 1 by mouth twice a 60tabs Dimitri Cheung 08/17/2016 - 850mg day [place], 01/27/2017 Tablets Son,FACP Bydureon inject 2 mg sc 4units Dimitri Cheung 08/17/2016 - 2mg Pen weekly [place], 08/30/2017 Son,FACP Metoprolol Succinate 1 tab by mouth 135tabs Dimitri Cheung 08/17/2016 - ER every day [place], 07/12/2018 100mg Tablets ER 24HR Son,FACP Clindamycin HCL 1 tabs by mouth 40caps J01.90 [place] 05/21/2016 - 300mg every 6h [place], 05/31/2016 Capsules M.Skye Lamisil AT topical once a day 42gm Dimitri Cheung 03/02/2016 - 1% Cream for 2 wks minumum, [place], 04/26/2017 4 wks max M.DStanford,FACP Betamethasone topical every day 15gm Dimitri Cheung 03/02/2016 - Dipropionate to affected areas [place], 04/26/2017 0.05% Cream M.DStanford,FACP Econazole Nitrate topical twice a 30gm B35.3 Dimitri Cheung 11/25/2015 - 1% day max 4 weeks [place], 03/02/2016 Cream Lima.Skye,FACP Trazodone HCL 1-2 every night at 60tabs G47.00 Dimitri Cheung 08/19/2015 - 50mg bedtime [place], 11/25/2015 Tablets M.D.,FACP Janumet XR 1 tab by mouth 180tabs Dimitri Cheung 07/31/2015 - 50-500mg twice a day [place], 08/17/2016 Tablets ER 24HR M.D.,FACP Janumet XR 1 by mouth twice a 60tabs Dimitri Cheung 05/13/2015 - 50-1000mg day [place], 07/31/2015 Tablets ER 24HR M.D.,FACP Repaglinide 1 tablet by mouth 90tabs Dimitri Cheung 01/01/2015 - 0.5mg Tablets 15-30 minutes [place], 06/28/2018 before meals three M.D.,FACP times a day Cheratussin ac 5-10 milliliters [...] by mouth twice a 60tabs Dimitri Cheung 05/01/2014 - 500mg day [place], 05/13/2015 Tablets M.D.,FACP Meclizine HCL 1 tablet twice a 30tabs 780.4 Gurjit Joyino, 04/10/2014 - 12.5mg day, as needed M.D. 07/03/2014 Tablets Cyclobenzaprine HCL 1 tablet by mouth 30tabs 723.1 Gurjit Joyino, 2014 - 5mg three times a day M.D. 07/03/2014 Tablets as needed Atorvastatin Calcium 1 tablet at 60tabs 272.2 Gurjit Joyino, 03/06/2014 - 20mg bedtime daily M.D. 04/09/2014 Tablets Metformin HCL 1/2 tablet by 60tabs Gurjit Cartagena, 02/28/2014 - 500mg mouth twice a day M.D. 04/09/2014 Tablets Januvia 1 tablet po daily 60tabs Gurjit Cartagena, 02/28/2014 - 50mg Tablets M.D. 05/01/2014 Allopurinol 1 by mouth every 90tabs [place] [facility] 300[facility] 08/19/2015 M.D. Klonopin 1 by mouth twice a 30tabs Unknown - 0.5mg Tablets day 03/06/2014 Lunesta 1 tablet by mouth 30tabs G47.00 Dimitri Cheung - 3mg Tablets at bedtime, as [place], 04/26/2017 needed M.D.,FACP Metoprolol Succinate take 1 tablet by 90tabs Dimitri Cheung - ER mouth once daily [place], 08/17/2016 100mg Tablets ER 24HR M.D.,FACP Immunizations CPT Code Status Date Vaccine Reaction Lot # [id number] Given 11/08/2017 Influenza Virus Vaccine, [id number] Quadrivalent, Split, Preservative Free [id number] Given 01/27/2017 Zoster (Zostavax) [id number] 14048 Given 12/04/2016 Influenza Virus Vaccine, Quadrivalent, Split, Preservative Free 55580 Given 06/22/2016 Pneumococcal Conjugate Vaccine 13 Valent For Intramuscular Use [id number] Given 12/07/2015 Fluvirin Im 3Yrs And Older 13528 Given 11/25/2015 Tdap - no reaction noted ... [id number] Tetanus/Diptheria/Acellular hh Pertussis [id number] Given 05/13/2015 Pneumonia Vaccine [id number] Given 12/07/2014 Flu Vaccine NOS Vital Signs Date Vital Result Comment 07/21/2018 7:42am Height 70 inches 5'10" Weight 209.38 lb per pt this morning Heart Rate 100 /min BP Systolic Sitting 96 mmHg Lue reg cuff BP Diastolic Sitting 72 mmHg Lue reg cuff BP Systolic Standing 106 mmHg Lue reg cuff BP Diastolic Standing 80 mmHg Lue reg cuff Respiratory Rate 15 /min BMI (Body Mass Index) 30.0 kg/m2 Ejection Fraction 25-30% 06/29/18 echo06/29/18 3cho 07/13/2018 9:02am Height 70 inches 5'10" Weight 216.00 lb Heart Rate 90 /min BP Systolic 104 mmHg BP Diastolic 58 mmHg Body Temperature 97.4 F O2 % BldC Oximetry 96 % BMI (Body Mass Index) 31.0 kg/m2 06/28/2018 10:33am Height 70 inches 5'10" Weight [...] Date Facility Test Result H/L Range Note Basic Metabolic 07/13/2018 [facility] Sodium 131 mmol/L Low 135-[address] [place] [address] [phone] Potassium 4.6 mmol/L N 3.5-5.0 Chloride 99 mmol/L Low 101-111 Co2 Carbon Dioxide 22 mmol/L N 22-32 Anion Gap 10 mmol/L N 2-11 Glucose 352 mg/dL High 70-100 Blood Urea Nitrogen 18 mg/dL N 6-24 Creatinine 1.01 mg/dL N 0.67-1.17 BUN/Creatinine Ratio 17.8 N 8-20 Calcium 8.8 mg/dL N 8.6-10.3 Egfr Non- 74.4 >60 Egfr 90.0 >60 1 CBC Auto Diff 06/28/2018 [facility] White Blood 7.4 10^3/uL N 3.5-10.[address] [place] [address] [phone] Red Blood Count 4.71 10^6/uL N 4.18-5.48 Hemoglobin 14.4 g/dL N 14.0-18.0 Hematocrit 43 % N 42-52 Mean Corpuscular Volume 91 fL N 80-94 Mean Corpuscular Hemoglobin 31 pg N 27-31 Mean Corpuscular HGB Conc 34 g/dL N 31-36 Red Cell Distribution Width 13 % N 10.5-15 Platelet Count 202 10^3/uL N 150-450 Mean Platelet Volume 9.4 fL N 7.4-10.4 Abs Neutrophils 4.6 10^3/uL N 1.5-7.7 Abs Lymphocytes 1.9 10^3/uL N 1.0-4.8 Abs Monocytes 0.6 10^3/uL N 0-0.8 Abs Eosinophils 0.2 10^3/uL N 0-0.6 Abs Basophils 0.1 10^3/uL N 0-0.2 Abs Nucleated RBC 0.0 10^3/uL Granulocyte % 61.9 % Lymphocyte % 26.2 % Monocyte % 8.3 % Eosinophil % 2.7 % Basophil % 0.9 % Nucleated Red Blood Cells % 0.1 Comp Metabolic Panel 06/28/2018 [facility] Sodium 132 mmol/L Low 135-[address] [place] [address] [phone] Potassium 4.5 mmol/L N 3.5-5.0 Chloride 101 mmol/L N 101-111 Co2 Carbon Dioxide 23 mmol/L N 22-32 Anion Gap 8 mmol/L N 2-11 Glucose 243 mg/dL High 70-100 Blood Urea Nitrogen 15 mg/dL N 6-24 Creatinine 1.02 mg/dL N 0.67-1.17 BUN/Creatinine Ratio 14.7 N 8-20 Calcium 9.3 mg/dL N 8.6-10.3 Total Protein 7.3 g/dL N 6.4-8.9 Albumin 4.4 g/dL N 3.2-5.2 Globulin 2.9 g/dL N 2-4 Albumin/Globulin Ratio 1.5 N 1-3 Total Bilirubin 0.60 mg/dL N 0.2-1.0 Alkaline Phosphatase 49 U/L N 34-104 Alt 46 U/L N 7-52 Ast 30 U/L N 13-39 Egfr Non- 73.5 >60 Egfr 89.0 >60 2 Laboratory test 06/28/2018 [facility] Troponin-I 0.20 ng/mL High <0.04 3 finding 101 (TnI) [place] [address] [phone] B-Type Natriuretic Peptide BNP 256 pg/mL High <=100 C Reactive Protein 1.43 mg/L N <8.01 Erythrocyte Sed Rate 25 mm/Hr High 0-19 Lipid Profile 06/23/2018 [facility] Triglycerides 320 mg/dL 4 (Trig/Chol/HDL) [address] [place] [address] [phone] Cholesterol 196 mg/dL 5 HDL Cholesterol 30.3 mg/dL 6 LDL Cholesterol 102 mg/dL 7 Laboratory 06/23/2018 [facility] Fructosamine 427 Abnormal 200 - 8 test finding 101 mcmol/L 285 [place] [address] [phone] Laboratory 05/24/2018 [facility] Hemoglobin A1c 9.1 High 5-7 test finding Laboratory 05/16/2018 [facility] TSH (Thyroid 2.33 N 0.34-5 9 , test finding [address] Stim Horm) mcIU/mL .60 10 [place] [address] [phone] Vitamin B12 579 pg/mL N 180-914 11 Basic Metabolic 05/16/2018 [facility] Sodium 134 mmol/L Low 135-[address] [place] [address] [phone] Potassium 4.4 mmol/L N 3.5-5.0 Chloride 102 mmol/L N 101-111 Co2 Carbon Dioxide 24 mmol/L N 22-32 Anion Gap 8 mmol/L N 2-11 Glucose 231 mg/dL High 70-100 Blood Urea Nitrogen 16 mg/dL N 6-24 Creatinine 0.95 mg/dL N 0.67-1.17 BUN/Creatinine Ratio 16.8 N 8-20 Calcium 8.9 mg/dL N 8.6-10.3 Egfr Non- 79.8 >60 Egfr 96.6 >60 12 Lipid Profile 05/16/2018 [facility] Triglycerides 357 mg/dL 13 (Trig/Chol/HDL) [address] [place] [address] [phone] Cholesterol 196 mg/dL 14 HDL Cholesterol 29.8 mg/dL 15 LDL Cholesterol 95 mg/dL 16 Urine Microalbumin 05/16/2018 [facility] Ur Microalbumin < 15.[address] (mg/L) mg/[place] [address] [phone] Urine Creatinine 129.35 mg/dL Urine Microalbumin/Creatinine TNP <31 17 Laboratory test 05/16/2018 [facility] Uric Acid 5.9 mg/dL N 4.4-7.[address] [place] [address] [phone] Laboratory test 02/20/2018 [facility] Hemoglobin A1c 7.6 High 5-7 finding Basic Metabolic 11/28/2017 [facility] Sodium 137 N 135-[address] mmol/[place] [address] [phone] Potassium 4.4 mmol/L N 3.5-5.0 Chloride 102 mmol/L N 101-111 Co2 Carbon Dioxide 28 mmol/L N 22-32 Anion Gap 7 mmol/L N 2-11 Glucose 143 mg/dL High 70-100 Blood Urea Nitrogen 15 mg/dL N 6-24 Creatinine 0.98 mg/dL N 0.67-1.17 BUN/Creatinine Ratio 15.3 N 8-20 Calcium 8.8 mg/dL N 8.6-10.3 Egfr Non- 77.0 >60 Egfr 93.2 >60 19 Laboratory test 11/28/2017 [facility] Uric Acid 5.0 mg/dL N 4.4-7.[address] [place], [place] [id number] [phone] Urine 08/30/2017 [facility] Ur Microalbumin < 15.[address] (mg/L) mg/L Random [place], [place] [id number] [phone] Urine Creatinine 140.88 mg/dL Urine Microalbumin/Creatinine TNP ug/mg <31 20 Laboratory test 08/30/2017 [facility] In House Hemoglobin A1c 6.7 5-7 finding Laboratory test 06/10/2017 [facility] PSA Screening 1.314 ng/mL N 0-4.[address] [place] [address] [phone] Lipid Profile 04/19/2017 [facility] Triglycerides 269 mg/dL 22 (Trig/Chol/HDL) [address] [place] [address] [phone] Cholesterol 155 mg/dL 23 HDL Cholesterol 26.1 mg/dL 24 LDL Cholesterol 75 mg/dL 25 Laboratory test 04/19/2017 [facility] Hemoglobin 8.0 % High 4.0-5.6 [address] A1c ([place] [address] HGB) [phone] Urine Culture And 04/13/2017 [facility] Urine Culture SEE 27, Sensitivities [address] RESULT 28 [place] [address] BELOW [phone] Ua Routine 04/13/2017 [facility] Ua Specific 1.005 [place] Ua PH 6 Ua Color yellow Ua Appera clear Ua WBC trace Ua Protein neg Ua Glucose normal Ua Ketones neg Ua Bilirubin neg Ua Urobilinogen normal Ua Nitrite neg Ua Occult Blood neg Laboratory test 01/27/2017 [facility] Hemoglobin A1c 8.0 High 5-7 finding Laboratory test 08/17/2016 [facility] Hemoglobin A1c 9.7 High 5-7 finding Lipid Profile 08/11/2016 [facility] Triglycerides 331 mg/dL N 29 (Trig/Chol/HDL) [address] [place] [address] [phone] Cholesterol 191 mg/dL N 30 HDL Cholesterol 29.4 mg/dL N 31 LDL Cholesterol 95 mg/dL N 32 Urine Microalbumin 08/11/2016 [facility] Urine Creatinine 159.08 mg/dL N Random [address] [place] [address] [phone] Ur Microalbumin (mg/L) < 15.0 mg/L N Urine Microalbumin/Creatinine TNP ug/mg N <31 33 Laboratory test 08/11/2016 [facility] Uric Acid 6.0 mg/dL N 4.4-7.6 34 finding [address] [place] [address] [phone] Basic Metabolic 08/11/2016 [facility] Sodium 135 mmol/L N 133- 145 Panel [address] [place] [address] [phone] Potassium 4.2 mmol/L N 3.5-5.0 Chloride 101 mmol/L N 101-111 Co2 Carbon Dioxide 26 mmol/L N 22-32 Anion Gap 8 mmol/L N 2-11 Glucose 194 mg/dL High 70-100 Blood Urea Nitrogen 16 mg/dL N 6-24 Creatinine 0.93 mg/dL N 0.67-1.17 BUN/Creatinine Ratio 17.2 N 8-20 Calcium 9.1 mg/dL N 8.6-10.3 Egfr Non- 82.3 N >60 Egfr 105.9 N >60 35 Laboratory test 05/21/2016 [facility] Hemoglobin A1c 8.9 High 5-7 finding Laboratory test 02/26/2016 [facility] Hepatitis C Nonreactive N Nonreactive finding [address] [place] [address] [phone] Hemoglobin A1c (Glyco HGB) 7.6 % High Less than 6.0 36 Uric Acid 6.2 mg/dL N 4.4-7.6 Laboratory test 11/25/2015 [facility] Hemoglobin A1c 7.8 High 5-7 finding Laboratory test 08/12/2015 [facility] Hemoglobin A1c 8.1 % High Less than [address] (Glyco HGB) 6.0 [place] [address] [phone] Laboratory test 08/12/2015 [facility] Uric Acid 5.6 mg/dL N 4.4-7.6 [address] [place] [address] [phone] Comp Metabolic 08/12/2015 [facility] Sodium 136 N 133-[address] mmol/[place] [address] [phone] Potassium 4.4 mmol/L N 3.5-5.0 Chloride 102 [...] 80.6 N >60 Egfr 103.7 N >60 39 Urinalysis Profile 08/12/2015 [facility] Urine Color Yellow N [address] [place] [address] [phone] Urine Appearance Clear N Urine Specific [place] 1.018 N 1.010-1.030 Urine pH 6.0 N 5-9 Urine Urobilinogen Negative N Negative Urine Ketones Negative N Negative Urine Protein Negative N Negative Urine Leukocytes Negative N Negative Urine Blood Negative N Negative Urine Nitrite Negative N Negative Urine Bilirubin Negative N Negative Urine Glucose Negative N Negative Urine Microalbumin 08/12/2015 [facility] Ur Microalbumin < 5.0 mg/L N Random [address] (mg/L) [place] [address] [phone] Urine Creatinine 189.19 mg/dL N Urine Microalbumin/Creatinine TNP ug/mg N <31 40 Lipid Profile 08/12/2015 [facility] Triglycerides 292 mg/dL N 41 (Trig/Chol/HDL) [address] [address] [phone] Cholesterol 182 mg/dL N 42 HDL Cholesterol 28.7 mg/dL N 43 LDL Cholesterol 95 mg/dL N 44 CBC Auto Diff 08/12/2015 [facility] White Blood 6.7 10^3/uL N 3.5-10.[address] [place] [address] [phone] Red Blood Count 4.80 10^6/uL N 4.0-5.4 [...] Blood Cells % 0.2 N Laboratory test 05/13/2015 [facility] In House Hemoglobin A1c 9.0 High 5-7 finding Lipid Profile 08/07/2014 [facility] Triglycerides 350 mg/dL N 45, 46 (Trig/Chol/HDL) [address] [place] [address] [phone] Cholesterol 185 mg/dL N 47 HDL Cholesterol 29.4 mg/dL N 48 LDL Cholesterol 86 mg/dL N 49 Comp Metabolic Panel 08/07/2014 [facility] Sodium 136 mmol/L N 133-[address] [place] [address] [phone] Potassium 3.9 mmol/L N 3.5-5.0 Chloride 102 [...] 85.0 N >60 Egfr 109.3 N >60 50 Comp Metabolic Panel 06/25/2014 Sodium 135 mmol/L [...] 82.9 N >60 Egfr 106.6 N >60 51 Laboratory test 06/25/2014 Hemoglobin A1c 8.4 % High Less than 52 finding 6.0 Urine Microalbumin 02/15/2014 [facility] Ur Microalbumin 7.0 mg/ L N Random [address] (mg/L) [place] [address] [phone] Urine Creatinine 223.17 mg/dL N Urine Microalbumin/Creatinine 3.1 N Less Than 31 Laboratory test 02/15/2014 [facility] Uric Acid 4.6 mg/dL N 4.4-7.6 [address] [place] [address] [phone] TSH (Thyroid Stimulating Horm) 2.46 IU/mL N 0.34-5.60 54 PSA Diagnostic 0.742 ng/mL N 0-4.000 55 Comp Metabolic Panel 02/15/2014 [facility] Sodium 132 mmol/L Low 133-[address] [place] [address] [phone] Potassium 4.2 mmol/L N 3.5-5.0 Chloride 97 [...] 70.5 N >60 Egfr 90.7 N >60 56 Urinalysis Profile 02/15/2014 [facility] Urine Color Yellow N [address] [place] [address] [phone] Urine Appearance Clear N Urine Specific [place] 1.019 N 1.010-1.030 Urine pH 6.0 N 5-9 Urine Urobilinogen Negative N Negative Urine Ketones Negative N Negative Urine Protein Negative N Negative Urine Leukocytes Negative N Negative Urine Blood Negative N Negative Urine Nitrite Negative N Negative Urine Bilirubin Negative N Negative Urine Glucose 1+(50 mg/dL) Abnormal Negative CBC Auto Diff 02/15/2014 [facility] White Blood 6.8 10^3/uL N 4.8-10.[address] [place] [address] [phone] Red Blood Count 5.08 10^6/uL N 4.0-5.4 [...] Cells % 0.1 N Lipid Profile 02/15/2014 [facility] Triglycerides 474 mg/dL N 57 (Trig/Chol/HDL) [address] [place] [address] [phone] Cholesterol 193 mg/dL N 58 HDL Cholesterol 28.0 mg/dL N 59 LDL Cholesterol (SEE NOTE) mg/dL N 60 Laboratory test 02/15/2014 [facility] Hemoglobin A1c 11.8 % High Less than [address] 6.0 [place] [address] [phone] 1 Because ethnic data is not always readily [...] 15-29 5 Kidney failure <15 (or dialysis) 2 Because ethnic data is not always readily [...] 15-29 5 Kidney failure <15 (or dialysis) 3 Result TnIDx:0.20 Called to DUANE Edwards RN at: 14:14:09 by:[id number] Read back by:DUANE Edwards RN Troponin-I testing on Plasma Separator Tubes (PST) has a known false positive rate of 0.20-0.40%. All positive troponins reflex immediately to secondary confirmatory testing. Using the ModifyI 800 Access Immunoassay systems, the 99th percentile upper reference limit was demonstrated to be < 0.03 ng/mL. 4 Desirable: <150 Borderline High: 150-199 High: 200-499 Very High: >500 5 Desirable: <200 Borderline High: 200-239 High: >239 6 Low: <40 Desirable: 40-60 High: >60 7 Desirable: <100 Near Optimal: 100-129 Borderline High: 130-159 High: 160-189 Very High: >189 8 Test Performed by: [facility] [address] [place] [address] 9 FASTING 10 HOUR 10 FASTING 10 HOUR 11 Normal Range 180 to 914 Indeterminate Range 145 to 180 Deficient Range <145 12 Because ethnic data is not always readily [...] 15-29 5 Kidney failure <15 (or dialysis) 13 Desirable: <150 Borderline High: 150-199 High: 200-499 Very High: >500 14 Desirable: <200 Borderline High: 200-239 High: >239 15 Low: <40 Desirable: 40-60 High: >60 16 Desirable: <100 Near Optimal: 100-129 Borderline High: 130-159 High: 160-189 Very High: >189 17 Unable to calculate due to low microalbumin 18 FASTING 10 HOUR 19 Because ethnic data is not always readily [...] 15-29 5 Kidney failure <15 (or dialysis) 20 Unable to calculate due to low microalbumin 21 Serum levels of PSA measured using the Mima Kayla DXI Hybritech immunoassay should not be interpreted as absolute evidence of the presence or absence of disease. The PSA value should be used in conjunction with other pertinent clinical diagnostic procedures. The values obtained with different assay methods or kits cannot be used interchangeably. 22 Desirable: <150 Borderline High: 150-199 High: 200-499 Very High: >500 23 Desirable: <200 Borderline High: 200-239 High: >239 24 Low: <40 Desirable: 40-60 High: >60 25 Desirable: <100 Near Optimal: 100-129 Borderline High: 130-159 High: 160-189 Very High: >189 26 Therapeutic target for the treatment of diabetes mellitus patients is <7% HBA1C, and in selective patients <6.0%. Please refer to [place] diabetic care guidelines for further information. 27 [id number] SEE RESULT BELOW Name: EMILIANO FLOWER : [address]: Frederick Camarena MD Acct: [id number] Unit: [id number] AGE: 61 Location: [facility] Re04/13/17 SEX: M Status: REG REF SPEC: [id number] BRAYAN: 04/13/17-[address] [facility] DR: Frederick Camarena MD REQ: [id number] RECD: 04/13/17 STATUS: COMP _ SOURCE: URINE [facility]: ORDERED: Urine Culture COMMENTS: [id number] Urine Source: Random Procedure Result Reported Site Urine Culture Final 04/15/17- 08 ML Organism 1 ESCHERICHIA COLI Gregory Count 25-50,000 (Moderate) CFU/ML 1. ESCHERICHIA COLI [...] antibiotic reporting. * ML - MAIN LAB (PSC1) . END OF REPORT * ML=Testing performed at Main Lab DEPARTMENT OF PATHOLOGY, [address] [place] [address] Janak Jay M.D. Director [facility] # [id number] 29 Desirable <150 Borderline high 150-199 High 200-499 Very High >500 30 Desirable <200 Borderline high 200-239 High >239 31 Low <40 Desirable: 40-60 High: >60 32 Desirable: <100 mg/dL Near Optimal: 100-129 mg/dL Borderline High: 130-159 mg/dL High: 160-189 mg/dL Very High: >189 mg/dL 33 Unable to calculate due to low microalbumin 34 FASTING 10 HOUR 35 Because ethnic data is not always readily [...] 15-29 5 Kidney failure <15 (or dialysis) 36 Therapeutic target for the treatment of diabetes Mellitus patients is <7% HBA1C, and in selective patients <6.0%.Please refer to [place] [employer] Diabetic care guidelines for further information. 37 Therapeutic target for the treatment of diabetes Mellitus patients is <7% HBA1C, and in selective patients <6.0%.Please refer to [place] [employer] Diabetic care guidelines for further information. 38 FASTING 10 HOUR 39 Because ethnic data is not always readily [...] 15-29 5 Kidney failure <15 (or dialysis) 40 Unable to calculate due to low microalbumin 41 Desirable <150 Borderline high 150-199 High 200-499 Very High >500 42 Desirable <200 Borderline high 200-239 High >239 43 Low <40 Desirable: 40-60 High: >60 44 Desirable: <100 mg/dL Near Optimal: 100-129 mg/dL Borderline High: 130-159 mg/dL High: 160-189 mg/dL Very High: >189 mg/dL 45 PT IS FASTING 46 Desirable <150 Borderline high 150-199 High 200-499 Very High >500 47 Desirable <200 Borderline high 200-239 High >239 48 Low <40 Desirable: 40-60 High: >60 49 Desirable: <100 mg/dL Near Optimal: 100-129 mg/dL Borderline High: 130-159 mg/dL High: 160-189 mg/dL Very High: >189 mg/dL 50 Because ethnic data is not always [...] 5 Kidney failure <15 (or dialysis) 51 Because ethnic data is not always readily [...] 15-29 5 Kidney failure <15 (or dialysis) 52 Therapeutic target for the treatment of diabetes Mellitus patients is <7% HBA1C, and in selective patients <6.0%.Please refer to [place] [employer] Diabetic care guidelines for further information. 53 PT IS FASTING 54 PT IS FASTING 55 Serum levels of PSA measured using the [employer] DXI Hybritech immunoassay should not be interpreted as absolute evidence of the presence or absence of disease. The PSA value should be used in conjunction with other pertinent clinical diagnostic procedures. The values obtained with different assay methods or kits cannot be used interchangeably. 56 Because ethnic data is not always readily [...] 15-29 5 Kidney failure <15 (or dialysis) 57 Desirable <150 Borderline high 150-199 High 200-499 Very High >500 58 Desirable <200 Borderline high 200-239 High >239 59 Low <40 Desirable: 40-60 High: >60 60 Unable to calculate LDL as triglyceride is > 400 61 Therapeutic target for the treatment of diabetes Mellitus patients is <7% HBA1C, and in selective patients <6.0%.Please refer to [place] [employer] Diabetic care guidelines for further information. Procedures Date Code Description Status 07/21/2018 65181 EKG Tracing & Interpretation Completed 06/29/2018 97366 Left Heart Cath. Incl S/I Coronaries, Angio S/I V Gram Completed If Done 06/29/2018 38688 Left Heart Cath. Incl S/I Coronaries, Angio S/I V Gram Completed If Done 06/29/2018 64556 ECHO Transthorasic Realtime 2D W Doppler & Color Flow Completed Hosp 06/29/2018 53135 Treadmill Interp/Report Only Completed 06/29/2018 48455 Stress Test Supervsn W/Out I/R Completed 01/25/2018 [id number] Colonoscopy Completed 09/30/2017 [id number] Diabetic Retinal Eye Exam Completed 03/22/2014 [id number] Diabetic Retinal Eye Exam Completed 05/23/2007 [id number] Colonoscopy Completed Encounters Type Date Location Provider Dx Diagnosis Office Visit 06/29/2018 [facility] Teresa Domínguez, R06.09 Other forms of 12:35p Of [employer] Operator AT [facility] [facility] dyspnea R79.89 Other specified abnormal findings of blood chemistry R94.39 Abnormal result of other cardiovascular function study I10 Essential (primary) hypertension Office Visit 06/29/2018 10:40a [facility] Juanita Novak, I25.10 [facility]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 of dyspnea Hospitalists R79.89 Other specified abnormal findings of blood chemistry E11.9 Type 2 diabetes mellitus without complications I10 Essential (primary) hypertension Office Visit 06/28/2018 10:40a [employer] [facility] Internal [place] R06.02 Shortness of breath Medicine Marker, RPA-C Office Visit 05/24/2018 10:40a [facility] Internal [place] E11.65 Type 2 diabetes Medicine Marker, RPA-C mellitus with hyperglycemia I10 Essential (primary) hypertension F40.248 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 hyperlipidemia Office Visit 02/20/2018 11:20a [facility] Internal Dimitri Cheung Z00.01 Encounter for Yovany Martell M.D.,[facility] general adult [address] medical exam w abnormal findings E11.65 Type 2 diabetes mellitus with hyperglycemia 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 I10 Essential (primary) hypertension M75.112 Incomplete rotatr-cuff tear/ruptr of l shoulder, not trauma R10.2 Pelvic and perineal pain Office Visit 12/06/2017 11:40a [facility] Internal Dimitri Cheung F40.228 Other natural Yovany Martell M.D.,[facility] environment type phobia Office Visit 11/08/2017 3:40p [facility] Internal Dimitri Cheung F40.228 Other natural Medicine Son Martell,[facility] environment type phobia Z12.11 Encounter for screening for malignant neoplasm of colon Z23 Encounter for immunization Office Visit 08/30/2017 2:00p [facility] Internal Dimitri Cheung E11.65 Type 2 diabetes Yovany Martell M.D.,[facility] mellitus with hyperglycemia N41.1 Chronic prostatitis I10 Essential (primary) hypertension Office Visit 04/26/2017 9:40a [facility] Rhea Cheung N41.0 Acute prostatitis Yovany Martell M.D.,FACP E11.65 Type 2 diabetes mellitus with hyperglycemia Office Visit 04/13/2017 10:00a [facility] Internal Frederick Camarena, N39.0 Urinary tract Yovany Cline infection, site not specified Office Visit 01/27/2017 9:10a [facility] Internal Dimitri Cheung Z00.01 Encounter for Yovany Martell M.D.,[facility] general adult [address] medical exam w abnormal findings E11.65 Type 2 diabetes mellitus with hyperglycemia I10 Essential (primary) hypertension G47.00 Insomnia, unspecified Z23 Encounter for immunization Office Visit 10/22/2016 [facility] Internal Frederick R19.06 Epigastric 7:40a Medicine - [place], M.D. swelling, mass or [address] lump Office Visit 08/17/2016 [facility] Internal Dimitri Cheung E11.65 Type 2 diabetes 8:50a Yovany Martell M.D.,FACP mellitus with hyperglycemia I10 Essential (primary) hypertension Office Visit 05/21/2016 11:40a [facility] Internal [place] J01.90 Acute sinusitis, Yovany Camarena M.D. unspecified [address] E11.65 Type 2 diabetes mellitus with hyperglycemia Office Visit 05/13/2016 2:20p [facility] Internal Tanvir Grace J06.9 Acute upper Medicine Mago Bautista M.D. respiratory [place] infection, unspecified Office Visit 03/02/2016 10:10a [facility] Internal Dimitri Cheung E11.65 Type 2 diabetes jannet Guillen with Son,FACP hyperglycemia R25.8 Other abnormal involuntary movements B35.3 Tinea pedis Office Visit 11/25/2015 10:30a [facility] Rhea Cheung Z00.01 Encounter for Yovany Martell M.D.,FACP general adult medical exam w abnormal findings E11.65 Type 2 diabetes mellitus with hyperglycemia I10 Essential (primary) hypertension M10.9 Gout, unspecified Z11.59 Encounter for screening for other viral diseases K22.2 Esophageal obstruction B35.3 Tinea pedis Z23 Encounter for immunization Office Visit 08/19/2015 9:50a [facility] Rhea Cheung E11.65 Type 2 diabetes Yovany Martell M.D.,FACP mellitus with hyperglycemia I10 Essential (primary) hypertension M10.9 Gout, unspecified G47.00 Insomnia, unspecified Office Visit 05/13/2015 9:30a [facility] Internal Dimitri Cheung E11.65 Type 2 diabetes Yovany Martell M.D.,FACP mellitus with hyperglycemia G56.01 Carpal tunnel syndrome, right upper limb Z23 Encounter for immunization Office Visit 10/03/2014 10:40a [facility] Internal Lenny Angel, 786.2 Cough Medicine [place] Office Visit 08/27/2014 10:40a [facility] Internal Tanvir Grace 465.9 URI Upper Yovany Bautista M.D. Respiratory Infections Acute Unspec Sites Office Visit 07/03/2014 9:00a [facility] Internal Gurjit 401.9 Hypertension Unspec Medicine - Nikita Cartagena M.D. Rd 250.02 Diabetes Mellitus W/O Compl Type II Or Unspec Type Uncontrol 272.2 Hyperlipidemia Mixed 530.81 Esophageal Reflux 530.3 Esophageal Stricture & Stenosis 274.9 Gout Unspec 307.49 Sleep Disorder Other 278.00 Obesity Unspec 401.1 Hypertension Benign Office Visit 05/01/2014 9:00a [facility] Internal Gurjit Joyino, 401.9 Hypertension Unspec Medicine - M.D. [address] 250.02 Diabetes Mellitus W/O Compl Type II Or Unspec Type Uncontrol 272.2 Hyperlipidemia Mixed 530.81 Esophageal Reflux 530.3 Esophageal Stricture & Stenosis 274.9 Gout Unspec 401.1 Hypertension Benign Office Visit 04/10/2014 9:00a [facility] Internal Gurjit Osiel, 401.9 Hypertension Unspec Medicine - M.D. [address] 250.02 Diabetes Mellitus W/O Compl Type II Or Unspec Type Uncontrol 272.2 Hyperlipidemia Mixed 530.81 Esophageal Reflux 530.3 Esophageal Stricture & Stenosis 274.9 Gout Unspec 780.4 Dizziness & Giddiness 723.1 Cervicalgia 307.49 Sleep Disorder Other 278.00 Obesity Unspec 401.1 Hypertension Benign Office Visit 03/06/2014 9:00a [facility] Internal Gurjit Cartagena, 401.9 Hypertension Unspec Medicine M.D. 250.00 Diabetes Mellitus W/O Compl Type II Or Unspec Controlled 272.2 Hyperlipidemia Mixed 530.81 Esophageal Reflux 530.3 Esophageal Stricture & Stenosis 274.9 Gout Unspec 307.49 Sleep Disorder Other 278.00 Obesity Unspec 401.1 Hypertension Benign 250.02 Diabetes Mellitus W/O Compl Type II Or Unspec Type Uncontrol Office Visit 02/08/2014 1:40p [facility] Internal Gurjitporfirio Cartagena, V70.0 Examination Medicine M.D. General Medical [...] Region, W/O Neurogenic Claudication Plan of Treatment Future Appointment(s):08/02/2018 7:50 am - Emiliano Saldaña DO FACC at [facility]08/15/2018 10:00 am - Brayan Srinivasan MD at [facility]10/13/2018 9:40 am - Randa Galvan MD at [facility] Internal Qyjvmqph64/31/2019 - Emiliano Saldaña, DO FACCI42.9 Cardiomyopathy, unspecifiedComments:Stop taking potassium supplementOnly take furosemide (lasix ) Tuesday, Tuesday and Tuesday. If you notice swelling of the legs, more than 3 pound weight gain, or more difficulty breathing, take an extra tablet of lasix and give us a call.You can try not wearing the TEDS. The left leg (where vein was harvested) may swell up on you, especially without daily lasix. If that happens, just start wearing the left compression sock.As we discussed, start taking walks with your and gradually increase the time and duration.I think the narcotic is making you constipated. Try prune juice, colace or miralax. You can use all three of these together.Stop taking fenofibrate. Increase atorvastatin to 80 mga day. You can 2 of the 40 mg tablets until finished. I sent a new prescription to your pharmacy.You should take clopidogrel (plavix) 75 mg for 1 year. This increases the likelihood that the vein grafts will stay open. I sent a prescription to your pharmacy.I would eventually like to increase the carvedilol dose to 12.5 mg twice a day.Follow up :Please schedule f/u August 02 at 7:45 AM time slotI25.2 Old myocardial infarctionNew Medication:Clopidogrel Bisulfate 75 mg - 1 by mouth every dayNew Therapy:Cardiac Rehab
--- OUTSIDE RECORDS SUMMARY | 2018-07-23 08:34 | XMS REPORT | Continuity of Care Document ---
:1955 External Reference #:[id number] Author Name Carmina Peralta Care Team Providers Name Role Phone Randa Galvan M.D. Primary Care Physician Unavailable Payers Date Identification Numbers Payment Provider Subscriber Effective: 2011 Policy Number: [id number] [facility] [employer]iliano [employer] Group Name: [facility] [address] [address] PayID: [id number] [place] [address] Expires: 2011 Policy Number: [id number] [facility] Health Plan o Emiliano Flower Group Number: [id number] Attn [facility] Claims Dept Group Name: [facility] [address] PayID: [id number] [place] [address] Advance Directives Type Date Description Status Comment [...] Use Denies Drug Use Smoking Status Reviewed: 07/13/18 Patient has never smoked Exercise Type/Frequency Plays sports 3 times a week Allergies, Adverse Reactions, Alerts Active Allergies Reaction Severity Comments Date Penicillins 02/08/2014 Bactrim Urticaria 02/08/2014 Doxycycline Urticaria 02/08/2014 Codeine nausea 08/27/2014 Medications Active Medications SIG Qnty Indications Ordering Date Provider [facility] one by mouth every 30tabs Randa Galvan, 07/14/2018 10mg Tablets in the morning MD Grant Anti-Embolism use daily as 2Pairs R60.0 Randatiffany Galvan, 07/13/2018 Stockings Continuing directed MD Care/Knee/LG/Reg Misc Endocet 1-2 tablets 2x/day 28tabs Randatiffany Galvan, 07/13/2018 5-325mg as needed for pain MD Tablets Atorvastatin Calcium 1 by mouth every day Unknown 07/11/2018 40mg Tablets Furosemide 1 by mouth every day 30tabs Randatiffany Galvan, 07/05/2018 40mg MD Tablets Potassium Chloride take one 30tabs Randatiffany Galvan, 07/05/2018 Meera ER capsule/tablet by 10Meq Tablets mouth twice a day ER Metformin HCL ER take 1 tablet twice 60tabs Tanvir Grace 05/24/2018 a day. Son Bautista 750mg Tablets ER 24HR Fenofibrate 1 by mouth every day 30caps E78.2 Tanvir Grace 05/24/2018 134mg Son Bautista Capsules Trulicity inject 2ml Dimitri Cheung 08/30/2017 1.5mg/0.5ML subcutaneously Swan, Solution Pen-Inject weekly Son,FACP Metoprolol Succinate 1 tab by mouth every 135tabs Dimitri Cheung 08/17/2016 ER day Swan, 100mg Tablets ER Lima.Skye,FACP 24HR Allopurinol 2 by mouth every day 180tabs Tanvir Grace 08/19/2015 100mg Son Bautista Tablets Accu-Check Glucose check 2-3 times a 1units Gurjit Osiel, 03/06/2014 Monitor day M.DStanford Device Accu-Check as directed 100units Randa Galvan, 03/06/2014 Compactstrips MD Strips Accu-Chek Fastclix use as directed dx 102units Gurjit Osiel, 03/06/2014 Lancets code: dm type ii Son Misc 250.02 Carvedilol 1 by mouth twice a Unknown 6.25mg day Tablets Aspirin 81 1 by mouth every day Unknown 81mg Tablets Losartan Potassium take 1 tablet by 90tabs Dimitri Cheung mouth once daily Swan, 100mg Tablets Lima.DStanford,FACP Omeprazole 1 by mouth every day 90tabs Randa Galvan, 20mg MD Tablets DR Cheung Medications Lunesta 1 tablet by mouth 30tabs G47.00 Dimitri Cheung 02/20/2018 - 3mg Tablets at bedtime, as Son Martell,FACP 07/13/2018 needed Sertraline HCL 1/2 qd for 3 wks 30tabs Dimitri Cheung 02/20/2018 - 50mg then 1 by mouth Son Martell,FACP 06/28/2018 Tablets every day Citalopram 1/2 by mouth 30tabs Dimitri Cheung 12/06/2017 - Hydrobromide every day for 3 Son Martell,FACP 03/13/2018 20mg Tablets wks then stop Citalopram 1 by mouth every 30tabs Dimitri Cheung 11/08/2017 - Hydrobromide day Son Martell,FACP 12/06/2017 10mg Tablets Amlodipine Besylate 1 by mouth every 30tabs Dimitri Cheung 07/01/2017 - 2.5mg day Son Martell,FACP 06/28/2018 Tablets Ciprofloxacin HCL si twice a 28tabs N41.0 Dimitri Cheung 04/26/2017 - 500mg day x 7 days Son Martell,[facility] 05/24/2017 Tablets Ciprofloxacin HCL twice a day 28tabs N39.0 Winslow 04/13/2017 - 500mg Son Camarena 04/26/2017 Tablets Metformin HCL 1 by mouth 3x a 90tabs Tanvir Grace 04/04/2017 - 500mg day Son Bautista 05/24/2018 Tablets Invokamet 1 po bid 60tabs Dimitri Cheung 02/11/2017 - 50-500mg Son Martell,[facility] 04/04/2017 Tablets Xigduo XR 1 tab po bid 60tabs Dimitri Cheung 01/27/2017 - 5-500mg Tablets (patient bringing Son Martell,[facility] 02/11/2017 ER 24HR copay card) Belsomra 1 by mouth every 30tabs Dimitri Cheung 01/27/2017 - 10mg Tablets night at bedtime Son Martell,[facility] 03/03/2017 Rosuvastatin Calcium 1 by mouth every 90tabs Dimitri Cheung 11/02/2016 - 5mg night at bedtime Son Martell,[facility] 05/24/2018 Tablets Metformin HCL 1 by mouth twice 60tabs Dimitri Cheung 08/17/2016 - 850mg a day Son Martell,[facility] 01/27/2017 Tablets Bydureon inject 2 mg sc 4units Dimitri Cheung 08/17/2016 - 2mg Pen weekly Son Martell,[facility] 08/30/2017 Clindamycin HCL 1 tabs by mouth 40caps J01.90 Winslow 05/21/2016 - 300mg every 6h Son Camarena 05/31/2016 Capsules Lamisil AT topical once a 42gm Dimitri Cheung 03/02/2016 - 1% Cream day for 2 wks Son Martell,[facility] 04/26/2017 minumum, 4 wks max Betamethasone topical every day 15gm Dimitri Cheung 03/02/2016 - Dipropionate to affected areas Son Martell,[facility] 04/26/2017 0.05% Cream Econazole Nitrate topical twice a 30gm B35.3 Dimitri Cheung 11/25/2015 - 1% day max 4 weeks Son Martell,[facility] 03/02/2016 Cream Trazodone HCL 1-2 every night 60tabs G47.00 Dimitri Cheung 08/19/2015 - 50mg at bedtime Son Martell,[facility] 11/25/2015 Tablets Janumet XR 1 tab by mouth 180tabs Dimitri Cheung 07/31/2015 - 50-500mg twice a day Son Martell,[facility] 08/17/2016 Tablets ER 24HR Janumet XR 1 by mouth twice 60tabs Dimitri Cheung 05/13/2015 - 50-1000mg a day Son Martell,[facility] 07/31/2015 Tablets ER 24HR Repaglinide 1 tablet by mouth 90tabs Dimitri Cheung 01/01/2015 - 0.5mg Tablets 15-30 minutes Son Martell,[facility] 06/28/2018 before meals three times a day Ciprofloxacin HCL 1 tab by mouth 14tabs 786.2 Lenny Angel NP 10/03/2014 - 500mg twice a day x 7 05/13/2015 Tablets days Cheratussin ac 5-10 milliliters 180ml 786.2 Lenny Angel NP 10/03/2014 - by mouth four 05/13/2015 100-10mg/5ML Solution times a day as needed Invokana 1 tablet po daily 30tabs 250.02 Gurjit Cartagena, 07/03/2014 - 100mg Tablets M.D. 05/13/2015 Januvia 1 tablet by mouth 60tabs 250.02 Gurjit Cartagena, 05/01/2014 - 100mg Tablets daily M.D. 05/13/2015 Metformin HCL 1 by mouth twice 60tabs Dimitri Cheung 05/01/2014 - 500mg a day Son Martell,[facility] 05/13/2015 Tablets Meclizine HCL 1 tablet [...] Metformin HCL 1/2 tablet by 60tabs Gurjit Osiel, 02/28/2014 - 500mg mouth twice a day M.D. 04/09/2014 Tablets Januvia 1 tablet po daily 60tabs Gurjit Cartagena, 02/28/2014 - 50mg Tablets M.D. 05/01/2014 Allopurinol 1 by mouth every 90tabs Frederick - 300mg Tablets day Son Camarena 08/19/2015 Klonopin 1 by mouth twice 30tabs Unknown - 0.5mg Tablets a day 03/06/2014 Lunesta 1 tablet by mouth 30tabs G47.00 Dimitri Cheung - 3mg Tablets at bedtime, as Son Martell,FACP 04/26/2017 needed Metoprolol Succinate take 1 tablet by 90tabs Dimitri Cheung - ER mouth once daily Son Martell,FACP 08/17/2016 100mg Tablets ER 24HR Immunizations CPT Code Status Date Vaccine Reaction Lot # [id number] Given 11/08/2017 Influenza Virus Vaccine, [id number] Quadrivalent, Split, Preservative Free [id number] Given 01/27/2017 Zoster (Zostavax) [id number] 44058 Given 12/04/2016 Influenza Virus Vaccine, Quadrivalent, Split, Preservative Free 24115 Given 06/22/2016 Pneumococcal Conjugate Vaccine 13 Valent For Intramuscular Use Q2037 Given 12/07/2015 Fluvirin Im 3Yrs And Older 50539 Given 11/25/2015 Tdap - no reaction noted ... [id number] Tetanus/Diptheria/Acellular hh Pertussis 56910 Given 05/13/2015 Pneumonia Vaccine [id number] Q2039 Given 12/07/2014 Flu Vaccine NOS Vital Signs Date Vital Result Comment 07/13/2018 9:02am Height 70 inches 5'10" Weight [...] Result H/L Range Note Basic Metabolic 07/13/2018 [facility] Sodium 131 mmol/L Low 135-[address] [place] [address] [phone] Potassium 4.6 mmol/L N 3.5-5.0 Chloride 99 mmol/L Low 101-111 Co2 Carbon Dioxide 22 mmol/L N 22-32 Anion Gap 10 mmol/L N 2-11 Glucose 352 mg/dL High 70-100 Blood Urea Nitrogen 18 mg/dL N 6-24 Creatinine 1.01 mg/dL N 0.67-1.17 BUN/Creatinine Ratio 17.8 N 8-20 Calcium 8.8 mg/dL N 8.6-10.3 Egfr Non- 74.4 >60 Egfr 90.0 >60 1 Laboratory test 06/28/2018 [facility] Troponin-I 0.20 ng/mL High <0.[address] (TnI) [place] [address] [phone] B-Type Natriuretic Peptide BNP 256 pg/mL High <=100 C Reactive Protein 1.43 mg/L N <8.01 Erythrocyte Sed Rate 25 mm/Hr High 0-19 CBC Auto Diff 06/28/2018 [facility] White Blood 7.4 10^3/uL N 3.5-10.[address] [place] [address] [phone] Red Blood Count 4.71 10^6/uL N 4.18-5.48 [...] Cells % 0.1 Comp Metabolic Panel 06/28/2018 [facility] Sodium 132 mmol/L Low 135-[address] [place] [address] [phone] Potassium 4.5 mmol/L N 3.5-5.0 Chloride 101 [...] Egfr Non- 73.5 >60 Egfr 89.0 >60 3 Lipid Profile 06/23/2018 [facility] Triglycerides 320 mg/dL 4 (Trig/Chol/HDL) [address] [place] [address] [phone] Cholesterol 196 mg/dL 5 HDL Cholesterol 30.3 mg/dL 6 LDL Cholesterol 102 mg/dL 7 Laboratory 06/23/2018 [facility] Fructosamine 427 Abnormal 200 - 8 test finding 101 [facility] mcmol/L [address] [place] [address] [phone] Laboratory 05/24/2018 [employer] [facility] Hemoglobin A1c 9.1 High 5-7 test finding Laboratory 05/16/2018 [facility] TSH (Thyroid 2.33 N 0.34-5 9 , test finding 101 [facility] Stim Horm) mcIU/mL .60 10 [place] [address] [phone] Vitamin B12 579 pg/mL N 180-914 11 Laboratory test 05/16/2018 [facility] Uric Acid 5.9 mg/dL N 4.4-7.6 12 finding [address] [place] [address] [phone] Basic Metabolic 05/16/2018 [facility] Sodium 134 mmol/L Low 135-145 Panel [address] [place] [address] [phone] Potassium 4.4 mmol/L N 3.5-5.0 Chloride 102 mmol/L N 101-111 Co2 Carbon Dioxide 24 mmol/L N 22-32 Anion Gap 8 mmol/L N 2-11 Glucose 231 mg/dL High 70-100 Blood Urea Nitrogen 16 mg/dL N 6-24 Creatinine 0.95 mg/dL N 0.67-1.17 BUN/Creatinine Ratio 16.8 N 8-20 Calcium 8.9 mg/dL N 8.6-10.3 Egfr Non- 79.8 >60 Egfr 96.6 >60 13 Lipid Profile 05/16/2018 [facility] Triglycerides 357 mg/dL 14 (Trig/Chol/HDL) [address] [place] [address] [phone] Cholesterol 196 mg/dL 15 HDL Cholesterol 29.8 mg/dL 16 LDL Cholesterol 95 mg/dL 17 Urine Microalbumin 05/16/2018 [facility] Ur Microalbumin < 15.[address] (mg/L) mg/[place] [address] [phone] Urine Creatinine 129.35 mg/dL Urine Microalbumin/Creatinine TNP <31 18 Laboratory test 02/20/2018 [facility] Hemoglobin A1c 7.6 High 5-7 finding Basic Metabolic 11/28/2017 [facility] Sodium 137 mmol/L N 135- [address] [place] [address] [phone] Potassium 4.4 mmol/L N 3.5-5.0 Chloride 102 mmol/L N 101-111 Co2 Carbon Dioxide 28 mmol/L N 22-32 Anion Gap 7 mmol/L N 2-11 Glucose 143 mg/dL High 70-100 Blood Urea Nitrogen 15 mg/dL N 6-24 Creatinine 0.98 mg/dL N 0.67-1.17 BUN/Creatinine Ratio 15.3 N 8-20 Calcium 8.8 mg/dL N 8.6-10.3 Egfr Non- 77.0 >60 Egfr 93.2 >60 19 Laboratory test 11/28/2017 [facility] Uric Acid 5.0 mg/dL N 4.4-7.[address] [place] [address] [phone] Laboratory test 08/30/2017 [facility] Hemoglobin A1c 6.7 5-7 finding Urine 08/30/2017 [facility] Ur Microalbumin < 15.[address] (mg/L) mg/[place] [address] [phone] Urine Creatinine 140.88 mg/dL Urine Microalbumin/Creatinine TNP ug/mg <31 20 Laboratory 06/10/2017 [facility] PSA Screening 1.314 N 0-4.0 21 test finding [address] ng/mL [place], [place] [phone] Laboratory 04/19/2017 [facility] Hemoglobin A1c 8.0 % High 4.0 -5.6 22 test finding [address] (Glyco HGB) [place] [address] [phone] Lipid Profile 04/19/2017 [facility] Triglycerides 269 mg/dL 23 (Trig/Chol/HDL [address] ) [place] [address] [phone] Cholesterol 155 mg/dL 24 HDL Cholesterol 26.1 mg/dL 25 LDL Cholesterol 75 mg/dL 26 Ua Routine 04/13/2017 [facility] Ua Specific [place] 1.005 Ua PH 6 Ua Color yellow Ua Appera clear Ua WBC trace Ua Protein neg Ua Glucose normal Ua Ketones neg Ua Bilirubin neg Ua Urobilinogen normal Ua Nitrite neg Ua Occult Blood neg Urine Culture And 04/13/2017 [facility] Urine Culture SEE RESULT 27, [address] [place] [address] [phone] Laboratory test 01/27/2017 [facility] Hemoglobin A1c 8.0 High 5-7 finding Laboratory test 08/17/2016 [facility] [facility] Hemoglobin A1c 9.7 High 5-7 finding Urine 08/11/2016 [facility] Urine 159.08 N Microalbumin [address] Creatinine mg/[place] [address] [phone] Ur Microalbumin (mg/L) < 15.0 mg/L N Urine Microalbumin/Creatinine TNP ug/mg N <31 29 Laboratory test 08/11/2016 [facility] Uric Acid 6.0 mg/dL N 4.4-7.6 [address] [place] [address] [phone] Basic Metabolic 08/11/2016 [facility] Sodium 135 mmol/L N 133- [address] [place] [address] [phone] Potassium 4.2 mmol/L N 3.5-5.0 Chloride 101 mmol/L N 101-111 Co2 Carbon Dioxide 26 mmol/L N 22-32 Anion Gap 8 mmol/L N 2-11 Glucose 194 mg/dL High 70-100 Blood Urea Nitrogen 16 mg/dL N 6-24 Creatinine 0.93 mg/dL N 0.67-1.17 BUN/Creatinine Ratio 17.2 N 8-20 Calcium 9.1 mg/dL N 8.6-10.3 Egfr Non- 82.3 N >60 Egfr 105.9 N >60 31 Lipid Profile 08/11/2016 [facility] Triglycerides 331 mg/dL N 32 (Trig/Chol/HDL) [address] [place] [address] [phone] Cholesterol 191 mg/dL N 33 HDL Cholesterol 29.4 mg/dL N 34 LDL Cholesterol 95 mg/dL N 35 Laboratory test 05/21/2016 [facility] Hemoglobin A1c 8.9 High 5-7 finding Laboratory test 02/26/2016 [facility] Hepatitis C Nonreactive N Nonreactive finding [address] [facility] [place] [address] [phone] Hemoglobin A1c (Glyco HGB) 7.6 % High Less than 6.0 36 Uric Acid 6.2 mg/dL N 4.4-7.6 Laboratory test 11/25/2015 [facility] House Hemoglobin A1c 7.8 High 5-7 finding Comp Metabolic 08/12/2015 [facility] Sodium 136 mmol/L N 133- 145 Panel [address] [place] [address] [phone] Potassium 4.4 mmol/L N 3.5-5.0 Chloride 102 [...] 80.6 N >60 Egfr 103.7 N >60 37 Laboratory test 08/12/2015 [facility] Hemoglobin A1c 8.1 % High Less [address] (Glyco HGB) than 6.0 [place] [address] [phone] Lipid Profile 08/12/2015 [facility] Triglycerides 292 N 39 (Trig/Chol/HDL) [address] mg/[place] [address] [phone] Cholesterol 182 mg/dL N 40 HDL Cholesterol 28.7 mg/dL N 41 LDL Cholesterol 95 mg/dL N 42 Urine Microalbumin 08/12/2015 [facility] Ur Microalbumin < 5.0 mg/L N Random [address] (mg/L) [place] [address] [phone] Urine Creatinine 189.19 mg/dL N Urine Microalbumin/Creatinine TNP ug/mg N <31 43 Urinalysis Profile 08/12/2015 [facility] Urine Color Yellow N [address] [place] [address] [phone] Urine Appearance Clear N Urine Specific [place] 1.018 N 1.010-1.030 Urine pH 6.0 N 5-9 Urine Urobilinogen Negative N Negative Urine Ketones Negative N Negative Urine Protein Negative N Negative Urine Leukocytes Negative N Negative Urine Blood Negative N Negative Urine Nitrite Negative N Negative Urine Bilirubin Negative N Negative Urine Glucose Negative N Negative Laboratory test 08/12/2015 [facility] Uric Acid 5.6 mg/dL N 4.4-7.6 [address] [place] [address] [phone] CBC Auto Diff 08/12/2015 [facility] White Blood 6.7 10^3/uL N 3.5-10.[address] [place] [address] [phone] Red Blood Count 4.80 10^6/uL N 4.0-5.4 [...] Cells % 0.2 N Laboratory test 05/13/2015 [facility] Hemoglobin A1c 9.0 High 5-7 finding Comp Metabolic 08/07/2014 [facility] Sodium 136 mmol/L N 133- [address] [place] [address] [phone] Potassium 3.9 mmol/L N 3.5-5.0 Chloride 102 [...] 85.0 N >60 Egfr 109.3 N >60 46 Lipid Profile 08/07/2014 [facility] Triglycerides 350 mg/dL N 47 (Trig/Chol/HDL) [address] [place] [address] [phone] Cholesterol 185 mg/dL N 48 HDL Cholesterol 29.4 mg/dL N 49 LDL Cholesterol 86 mg/dL N 50 Comp Metabolic Panel 06/25/2014 Sodium 135 [...] than 52 finding 6.0 Urine Microalbumin 02/15/2014 [facility] Ur Microalbumin 7.0 mg/ L N Random [address] (mg/L) [place] [address] [phone] Urine Creatinine 223.17 mg/dL N Urine Microalbumin/Creatinine 3.1 N Less Than 31 Laboratory test 02/15/2014 [facility] Uric Acid 4.6 mg/dL N 4.4-7.6 [address] [place] [address] [phone] TSH (Thyroid Stimulating Horm) 2.46 IU/mL N 0.34-5.60 54 PSA Diagnostic 0.742 ng/mL N 0-4.000 55 Comp Metabolic Panel 02/15/2014 [facility] Sodium 132 mmol/L Low 133-[address] [place] [address] [phone] Potassium 4.2 mmol/L N 3.5-5.0 Chloride 97 [...] 90.7 N >60 56 Urinalysis Profile 02/15/2014 [facility] Urine Color Yellow N [address] [place] [address] [phone] Urine Appearance Clear N Urine Specific [place] 1.019 N 1.010-1.030 Urine pH 6.0 N 5-9 Urine Urobilinogen Negative N Negative Urine Ketones Negative N Negative Urine Protein Negative N Negative Urine Leukocytes Negative N Negative Urine Blood Negative N Negative Urine Nitrite Negative N Negative Urine Bilirubin Negative N Negative Urine Glucose 1+(50 mg/dL) Abnormal Negative CBC Auto Diff 02/15/2014 [facility] White Blood 6.8 10^3/uL N 4.8-10.[address] [place] [address] [phone] Red Blood Count 5.08 10^6/uL N 4.0-5.4 [...] Cells % 0.1 N Lipid Profile 02/15/2014 [facility] Triglycerides 474 mg/dL N 57 (Trig/Chol/HDL) [address] [place] [address] [phone] Cholesterol 193 mg/dL N 58 HDL Cholesterol 28.0 mg/dL N 59 LDL Cholesterol (SEE NOTE) mg/dL N 60 Laboratory test 02/15/2014 [facility] Hemoglobin A1c 11.8 % High Less than [address] 6.0 [place] [address] [phone] 1 Because ethnic data is not always [...] 5 Kidney failure <15 (or dialysis) 2 Result TnIDx:0.20 Called to DUANE Edwards RN at: 14:14:09 by:[id number] Read back by:DUANE M. RN Troponin-I testing on Plasma Separator Tubes (PST) has a known false positive rate of 0.20-0.40%. All positive troponins reflex immediately to secondary confirmatory testing. Using the [employer] Now DxI 800 Access Immunoassay systems, the 99th percentile upper reference limit was demonstrated to be < 0.03 ng/mL. 3 Because ethnic data is not always readily [...] 15-29 5 Kidney failure <15 (or dialysis) 4 Desirable: <150 Borderline High: 150-199 High: 200-499 Very High: >500 5 Desirable: <200 Borderline High: 200-239 High: >239 6 Low: <40 Desirable: 40-60 High: >60 7 Desirable: <100 Near Optimal: 100-129 Borderline High: 130-159 High: 160-189 Very High: >189 8 Test Performed by: [address] [id number] 9 FASTING 10 HOUR 10 FASTING 10 HOUR 11 Normal Range 180 to 914 Indeterminate Range 145 to 180 Deficient Range <145 12 FASTING 10 HOUR 13 Because ethnic data is not always readily [...] 15-29 5 Kidney failure <15 (or dialysis) 14 Desirable: <150 Borderline High: 150-199 High: 200-499 Very High: >500 15 Desirable: <200 Borderline High: 200-239 High: >239 16 Low: <40 Desirable: 40-60 High: >60 17 Desirable: <100 Near Optimal: 100-129 Borderline High: 130-159 High: 160-189 Very High: >189 18 Unable to calculate due to low microalbumin 19 Because ethnic data is not always [...] levels of PSA measured using the [employer] DXI Hybritech immunoassay should not be interpreted as absolute evidence of the presence or absence of disease. The PSA value should be used in conjunction with other pertinent clinical diagnostic procedures. The values obtained with different assay methods or kits cannot be used interchangeably. 22 Therapeutic target for the treatment of diabetes mellitus patients is <7% HBA1C, and in selective patients <6.0%. Please refer to [place] [employer] diabetic care guidelines for further information. 23 Desirable: <150 Borderline High: 150-199 High: 200-499 Very High: >500 24 Desirable: <200 Borderline High: 200-239 High: >239 25 Low: <40 Desirable: 40-60 High: >60 26 Desirable: <100 Near Optimal: 100-129 Borderline High: 130-159 High: 160-189 Very High: >189 27 [id number] SEE RESULT BELOW Name: EMILIANO FLOWER : [address]: Frederick Camarena MD Acct: [id number] Unit: [id number] AGE: 61 Location: [facility] Re04/13/17 SEX: M Status: REG REF SPEC: [id number] BRAYAN: 04/13/17-[address] [facility] [address]: Frederick Camarena MD REQ: [id number] RECD: 04/13/17 STATUS: COMP _ SOURCE: URINE SPDESC: ORDERED: Urine Culture COMMENTS: [id number] Urine Source: Random Procedure Result Reported Site Urine Culture Final 04/15/17- 825 ML Organism 1 ESCHERICHIA COLI [place] Count 25-50,000 (Moderate) CFU/ML 1. ESCHERICHIA COLI [...] antibiotic reporting. * ML - MAIN LAB ([facility]) . END OF REPORT * ML=Testing performed at Main Lab DEPARTMENT OF PATHOLOGY, [address] [place] [address] Janak Jay M.D. Director [facility] # [id number] 29 Unable to calculate due to low microalbumin 30 FASTING 10 HOUR 31 Because ethnic data is not always readily [...] 15-29 5 Kidney failure <15 (or dialysis) 32 Desirable <150 Borderline high 150-199 High 200-499 Very High >500 33 Desirable <200 Borderline high 200-239 High >239 34 Low <40 Desirable: 40-60 High: >60 35 Desirable: <100 mg/dL Near Optimal: 100-129 mg/dL Borderline High: 130-159 mg/dL High: 160-189 mg/dL Very High: >189 mg/dL 36 Therapeutic target for the treatment of diabetes Mellitus patients is <7% HBA1C, and in selective patients <6.0%.Please refer to [place] [employer] Diabetic care guidelines for further information. 37 Because ethnic data is not always readily [...] 15-29 5 Kidney failure <15 (or dialysis) 38 Therapeutic target for the treatment of diabetes Mellitus patients is <7% HBA1C, and in selective patients <6.0%.Please refer to [place] [employer] Diabetic care guidelines for further information. 39 Desirable <150 Borderline high 150-199 High 200-499 Very High >500 40 Desirable <200 Borderline high 200-239 High >239 41 Low <40 Desirable: 40-60 High: >60 42 Desirable: <100 mg/dL Near Optimal: 100-129 mg/dL Borderline High: 130-159 mg/dL High: 160-189 mg/dL Very High: >189 mg/dL 43 Unable to calculate due to low microalbumin 44 FASTING 10 HOUR 45 PT IS FASTING 46 Because ethnic data is not always readily [...] 15-29 5 Kidney failure <15 (or dialysis) 47 Desirable <150 Borderline high 150-199 High 200-499 Very High >500 48 Desirable <200 Borderline high 200-239 High >239 49 Low <40 Desirable: 40-60 High: >60 50 Desirable: <100 mg/dL Near Optimal: 100-129 mg/dL Borderline High: 130-159 mg/dL High: 160-189 mg/dL Very High: >189 mg/dL 51 Because ethnic data is not always [...] and in selective patients <6.0%.Please refer to [place] [employer] Diabetic care guidelines for further [...] and in selective patients <6.0%.Please refer to [place] [employer] Diabetic care guidelines for further information. Procedures Date Code Description Status 06/29/2018 84336 Left Heart Cath. Incl S/I Coronaries, Angio S/I V Gram Completed If Done 06/29/2018 63190 Left Heart Cath. Incl S/I Coronaries, Angio S/I V Gram Completed If Done 06/29/2018 47241 ECHO Transthorasic Realtime 2D W Doppler & Color Flow Completed Hosp 06/29/2018 85942 Treadmill Interp/Report Only Completed 06/29/2018 57728 Stress Test Supervsn W/Out I/R Completed 01/25/2018 [id number] Colonoscopy Completed 09/30/2017 [id number] Diabetic Retinal Eye Exam Completed 03/22/2014 [id number] Diabetic Retinal Eye Exam Completed 05/23/2007 [id number] Colonoscopy Completed Encounters Type Date Location Provider Dx Diagnosis Office Visit 06/29/2018 [facility] Teresa Sang, R06.09 Other forms of 12:35p Of Passport Application Examin[place] [facility] [place] [employer] dyspnea R79.89 Other specified abnormal findings of blood chemistry R94.39 Abnormal result of other cardiovascular function study I10 Essential (primary) hypertension Office [facility] 06/29[facility]2018 [facility] 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 I42.9 Cardiomyopathy, unspecified I34.0 Nonrheumatic mitral (valve) insufficiency I10 Essential (primary) hypertension E11.65 Type 2 diabetes mellitus with hyperglycemia Office Visit 06/28/2018 10:40a [facility] Juanita Novak, R06.09 Other forms Assoc,alicia Cline of dyspnea Hospitalists R79.89 Other specified abnormal findings of blood chemistry E11.9 Type 2 diabetes mellitus without complications I10 Essential (primary) hypertension Office Visit 06/28/2018 10:40a [facility] Chantelle R06.02 Shortness of breath Medicine Marker, RPA-C Office Visit 05/24/2018 10:40a [facility] Chantelle E11.65 Type 2 diabetes Medicine Marker, RPA-C mellitus with hyperglycemia I10 Essential (primary) hypertension F40.248 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 hyperlipidemia Office Visit 02/20/2018 11:20a [facility] Dimitri Cheung Z00.01 Encounter for Medicine - Son Martell,FACP general adult [address] medical exam w abnormal findings E11.65 Type 2 diabetes mellitus with hyperglycemia 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 I10 Essential (primary) hypertension M75.112 Incomplete rotatr-cuff tear/ruptr of l shoulder, not trauma R10.2 Pelvic and perineal pain Office Visit 12/06/2017 11:40a [facility] Dimitri Cheung F40.228 Other natural Medicine Son Martell,[facility] environment type phobia Office Visit 11/08/2017 3:40p [facility] Dimitri Cheung F40.228 Other natural Medicine Son Martell,[facility] environment type phobia Z12.11 Encounter for screening for malignant neoplasm of colon Z23 Encounter for immunization Office Visit 08/30/2017 2:00p [facility] Dmiitri Cheung E11.65 Type 2 diabetes Yovany Martell M.D.,[facility] mellitus with hyperglycemia N41.1 Chronic prostatitis I10 Essential (primary) hypertension Office Visit 04/26/2017 9:40a [facility] Dimitri Cheung N41.0 Acute prostatitis [facility] M.D.,[facility] E11.65 Type 2 diabetes mellitus with hyperglycemia Office Visit 04/13/2017 10:00a [facility] Frederick Camarena, N39.0 Urinary tract Yovany Cline infection, site not specified Office Visit 01/27/2017 9:10a [facility] Dimitri Cheung Z00.01 Encounter for Yovany Martell M.D.,[facility] general adult [address] medical exam w abnormal findings E11.65 Type 2 diabetes mellitus with hyperglycemia I10 Essential (primary) hypertension G47.00 Insomnia, unspecified Z23 Encounter for immunization Office Visit 10/22/2016 [facility] Frederick R19.06 Epigastric 7:40a Yovany Camarena M.D. swelling, mass or [address] lump Office Visit 08/17/2016 [facility] Dimitri Cheung E11.65 Type 2 diabetes 8:50a Yovany Martell M.D.,[facility] mellitus with hyperglycemia I10 Essential (primary) hypertension Office Visit 05/21/2016 11:40a [facility] Rhea Mack J01.90 Acute sinusitis, Yovany Camarena M.D. unspecified [address] E11.65 Type 2 diabetes mellitus with hyperglycemia Office Visit 05/13/2016 2:20p [facility] Tanvir Grace J06.9 Acute upper Yovany Bautista M.D. respiratory [place] infection, unspecified Office Visit 03/02/2016 10:10a [facility] Dimitri Cheung E11.65 Type 2 diabetes jannet Guillen with Son,[facility] hyperglycemia R25.8 Other abnormal involuntary movements B35.3 Tinea pedis Office Visit 11/25/2015 10:30a [facility] Dimitri hCeung Z00.01 Encounter for Yovany Martell M.D.,[facility] general adult medical exam w abnormal findings E11.65 Type 2 diabetes mellitus with hyperglycemia I10 Essential (primary) hypertension M10.9 Gout, unspecified Z11.59 Encounter for screening for other viral diseases K22.2 Esophageal obstruction B35.3 Tinea pedis Z23 Encounter for immunization Office Visit 08/19/2015 9:50a [facility] Dimitri Cheung E11.65 Type 2 diabetes Yovany Martell M.D.,FACP mellitus with hyperglycemia I10 Essential (primary) hypertension M10.9 Gout, unspecified G47.00 Insomnia, unspecified Office Visit 05/13/2015 9:30a [facility] Dimitri Cheung E11.65 Type 2 diabetes Yovany Martell M.D.,FACP mellitus with hyperglycemia G56.01 Carpal tunnel syndrome, right upper limb Z23 Encounter for immunization Office Visit 10/03/2014 10:40a [facility] Lenny Angel, 786.2 Cough Medicine [employer] Office Visit 08/27/2014 10:40a [facility] Tanvir Grace 465.9 URI Upper Yovany Bautista M.D. Respiratory Infections Acute Unspec Sites Office Visit 07/03/2014 9:00a [facility] Gurjit 401.9 Hypertension Unspec Medicine - Nikita Cartagean M.D. Rd 250.02 Diabetes Mellitus W/O Compl Type II Or Unspec Type Uncontrol 272.2 Hyperlipidemia Mixed 530.81 Esophageal Reflux 530.3 Esophageal Stricture & Stenosis 274.9 Gout Unspec 307.49 Sleep Disorder Other 278.00 Obesity Unspec 401.1 Hypertension Benign Office Visit 05/01/2014 9:00a [facility] Gurjit Cartagena, 401.9 Hypertension Unspec Medicine - Son [address] 250.02 Diabetes Mellitus W/O Compl Type II Or Unspec Type Uncontrol 272.2 Hyperlipidemia Mixed 530.81 Esophageal Reflux 530.3 Esophageal Stricture & Stenosis 274.9 Gout Unspec 401.1 Hypertension Benign Office Visit 04/10/2014 9:00a [facility] Gurjit Cartagena, 401.9 Hypertension Unspec Medicine - M.Skye [address] 250.02 Diabetes Mellitus W/O Compl Type II Or Unspec Type Uncontrol 272.2 Hyperlipidemia Mixed 530.81 Esophageal Reflux 530.3 Esophageal Stricture & Stenosis 274.9 Gout Unspec 780.4 Dizziness & Giddiness 723.1 Cervicalgia 307.49 Sleep Disorder Other 278.00 Obesity Unspec 401.1 Hypertension Benign Office Visit 03/06/2014 9:00a [facility] Gurjit Cartagena, 401.9 Hypertension Unspec Medicine M.DStanford 250.00 Diabetes Mellitus W/O Compl Type II Or Unspec Controlled 272.2 Hyperlipidemia Mixed 530.81 Esophageal Reflux 530.3 Esophageal Stricture & Stenosis 274.9 Gout Unspec 307.49 Sleep Disorder Other 278.00 Obesity Unspec 401.1 Hypertension Benign 250.02 Diabetes Mellitus W/O Compl Type II Or Unspec Type Uncontrol Office Visit 02/08/2014 1:40p [facility] Gurjit Joyino, V70.0 Examination [facility] 401.9 Hypertension Unspec 250.00 Diabetes Mellitus W/O Compl Type II Or Unspec Controlled 530.81 Esophageal Reflux 530.3 Esophageal Stricture & Stenosis 274.9 Gout Unspec 307.49 Sleep Disorder Other 278.00 Obesity Unspec Office Visit 09/02/2008 [facility] Kamari [place] 724.02 Spinal Stenosis, 10:15a [facility] Son [place] Lumbar Region, W/O Neurogenic Claudication Plan of Treatment Future Appointment(s):10/13/2018 9:40 am - Randa Galvan MD at [facility] Zngmerhu80/23/2019 - Randa Galvan MDI25.10 Atherosclerotic heart disease of [place] coronary artery withComments:follow up with Cardiology next week as scheduled, continue current gthfjgcQ13.6 HypokalemiaNew Labs:Basic Metabolic Panel, Ordered: 07/13/18Comments:continue the potassium and ububudvkvgU41.1 Presence of aortocoronary bypass graftComments:please remember to use your incentive spirometry every hourI42.9 Cardiomyopathy, unspecifiedComments: dfmmubgbY53.0 Localized edemaNew Medication:T.E.D. Anti-Embolism Stockings Continuing Care/Knee/LG/Reg - use daily as zhhujckzR21.65 Type 2 diabetes mellitus with hyperglycemiaComments:your glucose will be a little elevated for a few weeks as a reaction, do not worry about this. Call me if it is not improving after 4 weeks.Follow up:3 months, 20 min Goals 07/13/2018 - Randa Galvan MDE11.65 Type 2 diabetes mellitus with hyperglycemiaGoal Hemoglobin A1c is less than 7.0% in ages 18-74 Goal Hemoglobin A1c is between 7.0% and 8.0% in age over 75 Goal Blood pressure is less than 130/85. Cholesterol should be lowered by a high or moderate-dose statin.
--- OUTSIDE RECORDS SUMMARY | 2018-07-23 08:35 | XMS REPORT | Continuity of Care Document ---
:1955 External Reference #:[id number] Author Name Daisy Bernstein Care Team Providers Name Role Phone Randa Galvan M.D. Primary Care Physician Unavailable Payers Date Identification Numbers Payment Provider Subscriber Effective: 2011 Policy Number: [id number] [facility] Emiliano Ramsey Group Name: [facility] [address] [address] PayID: [id number] ALBERTA Duvall [address] Expires: 2011 Policy Number: [id number] [facility] Health Plan o Emiliano Ramsey Group Number: [id number] Attn [facility] Claims Dept Group Name: [facility] [place] [employer] [address] PayID: [id number] ALFREDO Abreu [id number] Advance Directives Type Date Description Status Comment [...] Medications SIG Qnty Indications Ordering Date Provider Juanita Anti-Embolism use daily as 2Pairs R60.0 Randa Galvan, 07/13/2018 Stockings Continuing directed MD Care/Knee/LG/Reg Misc Atorvastatin Calcium 1 by mouth every day Unknown 07/11/2018 40mg Tablets Furosemide 1 by mouth every day 30tabs Randa Galvan, 07/05/2018 40mg MD Tablets Potassium Chloride [...] inject 2ml Dimitri Cheung 08/30/2017 1.5mg/0.5ML subcutaneously [place], Solution Pen-Inject weekly M.DStanford,FACP Metoprolol Succinate 1 tab by mouth every 135tabs Dimitri Cheung 08/17/2016 ER day [place], 100mg Tablets ER M.DStanford,FACP 24HR Allopurinol 2 by mouth every day 180tabs Tanvir Grace 08/19/2015 100mg Son Bautista Tablets Accu-Check Glucose check 2-3 times a 1units Gurjit Cartagena, 03/06/2014 Monitor day Son Device Accu-Check as directed 100unredd Randa Galvan, 03/06/2014 Robin SHEN Strips Accu-Chek Fastclix use as directed dx 102unredd Joyino, 03/06/2014 Lancets code: dm type ii Son Misc 250.02 Carvedilol 1 by mouth twice a Unknown 6.25mg day Tablets Aspirin 81 1 by mouth every day Unknown 81mg Tablets Losartan Potassium take 1 tablet by 90tabs Dimitri Cheung mouth once daily Jayshree, 100mg Tablets M.DStanford,[facility] Omeprazole 1 by mouth every day 90tabs Randa Galvan, 20mg MD Tablets DR Skye Marion Lunesta 1 tablet by mouth 30tabs G47.00 Dimitri Cheung 02/20/2018 - 3mg Tablets at bedtime, as Son Martell,[facility] 07/13/2018 needed Sertraline HCL 1/2 qd for 3 wks 30tabs Dimitri Cheung 02/20/2018 - 50mg then 1 by mouth Son Martell,[facility] 06/28/2018 Tablets every day Citalopram 1/2 by mouth 30tabs Dimitri Cheung 12/06/2017 - Hydrobromide every day for 3 Son Martell,[facility] 03/13/2018 20mg Tablets wks then stop Citalopram 1 by mouth every 30tabs Dimitri Cheung 11/08/2017 - Hydrobromide day Son Martell,[facility] 12/06/2017 10mg Tablets Amlodipine Besylate 1 by mouth every 30tabs Dimitri Cheung 07/01/2017 - 2.5mg day Son Martell,[facility] 06/28/2018 Tablets Ciprofloxacin HCL si twice a 28tabs N41.0 Dimitri Cheung 04/26/2017 - 500mg day x 7 days Son Martell,[facility] 05/24/2017 Tablets Ciprofloxacin HCL twice a day 28tabs N39.0 Frederick 04/13/2017 - 500mg Son Camarena 04/26/2017 Tablets Metformin HCL 1 by mouth 3x a 90tabs Tanvir Grace 04/04/2017 - 500mg day Son Bautista 05/24/2018 Tablets Invokamet 1 po bid 60tabs Dimitri Cheung 02/11/2017 - 50-500mg Son Martell,[facility] 04/04/2017 Tablets Xigduo XR 1 tab po bid 60tabs Dimitri Cheung 01/27/2017 - 5-500mg Tablets (patient bringing Son Martell,[facility] 02/11/2017 ER 24HR copay card) Belsomra 1 by mouth every 30tabs Dimitri Cheung 01/27/2017 - 10mg Tablets night at bedtime Son Martell,[facility] 03/03/2017 Rosuvastatin Calcium 1 by mouth every 90tabs Dimitri Cheung 11/02/2016 - 5mg night at bedtime Son Martell,[facility] 05/24/2018 Tablets Metformin HCL 1 by mouth twice 60tabs Dimitri Cheung 08/17/2016 - 850mg a day Son Martell,[facility] 01/27/2017 Tablets Bydureon inject 2 mg sc 4units Dimitri Cheung 08/17/2016 - 2mg Pen weekly Son Martell,[facility] 08/30/2017 Clindamycin HCL 1 tabs by mouth 40caps J01.90 Frederick 05/21/2016 - 300mg every 6h Son Camarena 05/31/2016 Capsules Lamisil AT topical once a 42gm Dimitri Cheung 03/02/2016 - 1% Cream day for 2 wks Son Martell,[facility] 04/26/2017 minumum, 4 wks max Betamethasone topical every day 15gm Dimitri Cheung 03/02/2016 - Dipropionate to affected areas Son Martell,[facility] 04/26/2017 0.05% Cream Econazole Nitrate topical twice a 30gm B35.3 Dimitri Cheung 11/25/2015 - 1% day max 4 weeks Son Martell,[facility] 03/02/2016 Cream Trazodone HCL 1-2 every night 60tabs G47.00 Dimitri Cheung 08/19/2015 - 50mg at bedtime Son Martell,[facility] 11/25/2015 Tablets Janumet XR 1 tab by mouth 180tabs Dimitri Cheung 07/31/2015 - 50-500mg twice a day Son Martell,[facility] 08/17/2016 Tablets ER 24HR Janumet XR 1 by mouth twice 60tabs Dimitri Cheung 05/13/2015 - 50-1000mg a day Son Martell,[facility] 07/31/2015 Tablets ER 24HR Repaglinide 1 tablet by mouth 90tabs Dimitri Cheung 01/01/2015 - 0.5mg Tablets 15-30 minutes Son Martell,[facility] 06/28/2018 before meals three times a [...] Cheung 05/01/2014 - 500mg a day Son Martell,[facility] 05/13/2015 Tablets Meclizine HCL 1 tablet [...] - 3mg Tablets at bedtime, as Son Martell,[facility] 04/26/2017 needed Metoprolol Succinate take 1 tablet by 90tabs Dimitri Cheung - ER mouth once daily Son Martell,[facility] 08/17/2016 100mg Tablets ER 24HR Immunizations CPT Code Status Date Vaccine Reaction Lot # [id number] Given 11/08/2017 Influenza Virus Vaccine, [id number] Quadrivalent, Split, Preservative Free 21286 Given 01/27/2017 Zoster (Zostavax) [id number] 97577 Given 12/04/2016 Influenza Virus Vaccine, Quadrivalent, Split, Preservative Free 93950 Given 06/22/2016 Pneumococcal Conjugate Vaccine 13 Valent For Intramuscular Use Q2037 Given 12/07/2015 Fluvirin Im 3Yrs And Older 31819 Given 11/25/2015 Tdap - no reaction noted ... [id number] Tetanus/Diptheria/Acellular hh Pertussis 30753 Given 05/13/2015 Pneumonia Vaccine [id number] Q2039 Given 12/07/2014 Flu Vaccine NOS Vital [...] Date Facility Test Result H/L Range Note Laboratory test 06/28/2018 [facility] Troponin-I 0.20 ng/mL High <0.04 [address] (TnI) [place] [address] [phone] B-Type Natriuretic Peptide BNP 256 pg/mL High <=100 C Reactive Protein 1.43 mg/L N <8.01 Erythrocyte Sed Rate 25 mm/Hr High 0-19 CBC Auto Diff 06/28/2018 [facility] White Blood 7.4 10^3/uL N 3.5-10.[address] [place] [address] [phone] Red Blood Count 4.71 10^6/uL N 4.18-5.48 [...] Cells % 0.1 Comp Metabolic Panel 06/28/2018 [facility] Sodium 132 mmol/L Low 135-145 [address] [place] [address] [phone] Potassium 4.5 mmol/L N 3.5-5.0 Chloride 101 [...] Non- 73.5 >60 Egfr 89.0 >60 2 Lipid Profile 06/23/2018 [facility] Triglycerides 320 mg/dL 3 (Trig/Chol/HDL) [address] [place] [address] [phone] Cholesterol 196 mg/dL 4 HDL Cholesterol 30.3 mg/dL 5 LDL Cholesterol 102 mg/dL 6 Laboratory 06/23/2018 [facility] Fructosamine 427 Abnormal 200 - 7 test finding 101 mcmol/L 285 [place] [address] [phone] Laboratory 05/24/2018 [facility] Hemoglobin A1c 9.1 High 5-7 test finding Laboratory 05/16/2018 [facility] TSH (Thyroid 2.33 N 0.34-5 8 , [address] Stim Horm) mcIU/mL .60 [place] [address] [phone] Vitamin B12 579 pg/mL N 180-914 10 Laboratory test 05/16/2018 [facility] Uric Acid 5.9 mg/dL N 4.4-7.6 11 [place] [address] [phone] Basic Metabolic 05/16/2018 [facility] Sodium 134 mmol/L Low 135-145 [place] [address] [phone] Potassium 4.4 mmol/L N 3.5-5.0 Chloride 102 mmol/L N 101-111 Co2 Carbon Dioxide 24 mmol/L N 22-32 Anion Gap 8 mmol/L N 2-11 Glucose 231 mg/dL High 70-100 Blood Urea Nitrogen 16 mg/dL N 6-24 Creatinine 0.95 mg/dL N 0.67-1.17 BUN/Creatinine Ratio 16.8 N 8-20 Calcium 8.9 mg/dL N 8.6-10.3 Egfr Non- 79.8 >60 Egfr 96.6 >60 12 Lipid Profile 05/16/2018 [facility] Triglycerides 357 mg/dL 13 (Trig/Chol/HDL) [address] [place] [address] [phone] Cholesterol 196 mg/dL 14 HDL Cholesterol 29.8 mg/dL 15 LDL Cholesterol 95 mg/dL 16 Urine Microalbumin 05/16/2018 [facility] Ur Microalbumin < 15.0 Random (mg/L) mg/[place] [address] [phone] Urine Creatinine 129.35 mg/dL Urine Microalbumin/Creatinine TNP <31 17 Laboratory test 02/20/2018 [facility] Hemoglobin A1c 7.6 High 5-7 finding Basic Metabolic 11/28/2017 [facility] Sodium 137 mmol/L N 135- 145 Panel [address] [place] [address] [phone] Potassium 4.4 mmol/L N 3.5-5.0 Chloride 102 mmol/L N 101-111 Co2 Carbon Dioxide 28 mmol/L N 22-32 Anion Gap 7 mmol/L N 2-11 Glucose 143 mg/dL High 70-100 Blood Urea Nitrogen 15 mg/dL N 6-24 Creatinine 0.98 mg/dL N 0.67-1.17 BUN/Creatinine Ratio 15.3 N 8-20 Calcium 8.8 mg/dL N 8.6-10.3 Egfr Non- 77.0 >60 Egfr 93.2 >60 18 Laboratory test 11/28/2017 [facility] Uric Acid 5.0 mg/dL N 4.4-7.6 finding [address] [place] [address] [phone] Urine 08/30/2017 [facility] Ur Microalbumin < 15.0 Microalbumin 101 [facility] (mg/L) mg/[place] [address] [phone] Urine Creatinine 140.88 mg/dL Urine Microalbumin/Creatinine TNP ug/mg <31 19 Laboratory test 08/30/2017 [facility] Hemoglobin A1c 6.7 5-7 finding Laboratory test 06/10/2017 [facility] PSA Screening 1.314 ng/mL N 0-4.0 20 finding [address] [place] [address] [phone] Lipid Profile 04/19/2017 [facility] Triglycerides 269 mg/dL 21 (Trig/Chol/HDL) [address] [place] [address] [phone] Cholesterol 155 mg/dL 22 HDL Cholesterol 26.1 mg/dL 23 LDL Cholesterol 75 mg/dL 24 Laboratory test 04/19/2017 [facility] Hemoglobin A1c 8.0 % High 4.0-5.6 25 finding 101 [facility] (Glyco HGB) [place] [address] [phone] Ua Routine 04/13/2017 [facility] Ua Specific 1.005 [place] Ua PH 6 Ua Color yellow Ua Appera clear Ua WBC trace Ua Protein neg Ua Glucose normal Ua Ketones neg Ua Bilirubin neg Ua Urobilinogen normal Ua Nitrite neg Ua Occult Blood neg Urine Culture And 04/13/2017 [facility] Urine Culture SEE RESULT 26, [address] [place] [address] [phone] Laboratory test 01/27/2017 [facility] Hemoglobin A1c 8.0 High 5-7 finding Laboratory test 08/17/2016 [facility] Hemoglobin A1c 9.7 High 5-7 finding Laboratory test 08/11/2016 [facility] Uric Acid 6.0 mg/dL N 4.4 [address]. [place] [address] [phone] Lipid Profile 08/11/2016 [facility] Triglycerides 331 mg/dL N 29 (Trig/Chol/HDL) [address] [place] [address] [phone] Cholesterol 191 mg/dL N 30 HDL Cholesterol 29.4 mg/dL N 31 LDL Cholesterol 95 mg/dL N 32 Basic Metabolic Panel 08/11/2016 [facility] Sodium 135 mmol/L N 133-[address] [place] [address] [phone] Potassium 4.2 mmol/L N 3.5-5.0 Chloride 101 mmol/L N 101-111 Co2 Carbon Dioxide 26 mmol/L N 22-32 Anion Gap 8 mmol/L N 2-11 Glucose 194 mg/dL High 70-100 Blood Urea Nitrogen 16 mg/dL N 6-24 Creatinine 0.93 mg/dL N 0.67-1.17 BUN/Creatinine Ratio 17.2 N 8-20 Calcium 9.1 mg/dL N 8.6-10.3 Egfr Non- 82.3 N >60 Egfr 105.9 N >60 33 Urine Microalbumin 08/11/2016 [facility] Urine Creatinine 159.08 mg/dL N Random [address] [place] [address] [phone] Ur Microalbumin (mg/L) < 15.0 mg/L N Urine Microalbumin/Creatinine TNP ug/mg N <31 34 Laboratory test 05/21/2016 [facility] Hemoglobin A1c 8.9 High 5-7 finding Laboratory test 02/26/2016 [facility] Hepatitis C Nonreactive N Nonreactive finding [address] [place] [address] [phone] Hemoglobin A1c (Glyco HGB) 7.6 % High Less than 6.0 35 Uric Acid 6.2 mg/dL N 4.4-7.6 Laboratory test 11/25/2015 [facility] Hemoglobin A1c 7.8 High 5-7 finding Lipid Profile 08/12/2015 [facility] Triglycerides 292 mg/dL N 36 (Trig/Chol/HDL) [address] [place] [address] [phone] Cholesterol 182 mg/dL N 37 HDL Cholesterol 28.7 mg/dL N 38 LDL Cholesterol 95 mg/dL N 39 Urinalysis Profile 08/12/2015 [facility] Urine Color Yellow [place] [address] [place] [address] [phone] Urine Appearance Clear N Urine Specific [place] 1.018 N 1.010-1.030 Urine pH 6.0 N 5-9 Urine Urobilinogen Negative N Negative Urine Ketones Negative N Negative Urine Protein Negative N Negative Urine Leukocytes Negative N Negative Urine Blood Negative N Negative Urine Nitrite Negative N Negative Urine Bilirubin Negative N Negative Urine Glucose Negative N Negative Urine Microalbumin 08/12/2015 [facility] Ur Microalbumin < 5.0 mg/L N Random [address] (mg/L) [place] [address] [phone] Urine Creatinine 189.19 mg/dL N Urine Microalbumin/Creatinine TNP ug/mg N <31 40 Laboratory test 08/12/2015 [facility] Uric Acid 5.6 mg/dL N 4.4-7.6 41 finding [address] [place] [address] [phone] CBC Auto Diff 08/12/2015 [facility] White Blood 6.7 10^3/uL N 3.5-10.[address] [place] [address] [phone] Red Blood Count 4.80 10^6/uL N 4.0-5.4 [...] Nucleated Red Blood Cells % 0.2 N Comp Metabolic Panel 08/12/2015 [facility] Sodium 136 mmol/L N 133-[address] [place] [address] [phone] Potassium 4.4 mmol/L N 3.5-5.0 Chloride 102 [...] 80.6 N >60 Egfr 103.7 N >60 42 Laboratory test 08/12/2015 [facility] Hemoglobin A1c 8.1 % High Less than [address] (Glyco HGB) 6.0 [place] [address] [phone] Laboratory test 05/13/2015 [facility] Hemoglobin A1c 9.0 High 5-7 finding Comp Metabolic 08/07/2014 [facility] Sodium 136 N 133-145 [address] mmol/[place] [address] [phone] Potassium 3.9 mmol/L N 3.5-5.0 Chloride 102 [...] 85.0 N >60 Egfr 109.3 N >60 45 Lipid Profile 08/07/2014 [facility] Triglycerides 350 mg/dL N 46 (Trig/Chol/HDL) [address] [place] [address] [phone] Cholesterol 185 mg/dL N 47 HDL Cholesterol 29.4 mg/dL N 48 LDL Cholesterol 86 mg/dL N 49 Comp Metabolic Panel 06/25/2014 Sodium 135 mmol/L [...] 82.9 N >60 Egfr 106.6 N >60 50 Laboratory test 06/25/2014 Hemoglobin A1c 8.4 % High Less than 51 finding 6.0 Comp Metabolic 02/15/2014 [facility] Sodium 132 mmol/L Low 133 -[address] [place] [address] [phone] Potassium 4.2 mmol/L N 3.5-5.0 Chloride 97 [...] 70.5 N >60 Egfr 90.7 N >60 52 Urinalysis Profile 02/15/2014 [facility] Urine Color Yellow N [address] [place] [address] [phone] Urine Appearance Clear N Urine Specific [place] 1.019 N 1.010-1.030 Urine pH 6.0 N 5-9 Urine Urobilinogen Negative N Negative Urine Ketones Negative N Negative Urine Protein Negative N Negative Urine Leukocytes Negative N Negative Urine Blood Negative N Negative Urine Nitrite Negative N Negative Urine Bilirubin Negative N Negative Urine Glucose 1+(50 mg/dL) Abnormal Negative CBC Auto Diff 02/15/2014 [facility] White Blood 6.8 10^3/uL N 4.8-10.[address] [place] [address] [phone] Red Blood Count 5.08 10^6/uL N 4.0-5.4 [...] Cells % 0.1 N Lipid Profile 02/15/2014 [facility] Triglycerides 474 mg/dL N 53 (Trig/Chol/HDL) [address] [place] [address] [phone] Cholesterol 193 mg/dL N 54 HDL Cholesterol 28.0 mg/dL N 55 LDL Cholesterol (SEE NOTE) mg/dL N 56 Laboratory test 02/15/2014 [facility] Hemoglobin A1c 11.8 % High Less [address] than 6.0 [place] [address] [phone] Urine 02/15/2014 [facility] Ur Microalbumin 7.0 mg/L N Microalbumin [address] (mg/L) [place] [address] [phone] Urine Creatinine 223.17 mg/dL N Urine Microalbumin/Creatinine 3.1 N Less Than 31 Laboratory test 02/15/2014 [facility] Uric Acid 4.6 mg/dL N 4.4-7.6 [address] [place] [address] [phone] TSH (Thyroid Stimulating Horm) 2.46 IU/mL N 0.34-5.60 59 PSA Diagnostic 0.742 ng/mL N 0-4.000 60 1 Result TnIDx:0.20 Called to DUANE Edwards RN at: 14:14:09 by:[id number] Read back by:DUANE Edwards RN Troponin-I testing on Plasma Separator Tubes (PST) has a known false positive rate of 0.20-0.40%. All positive troponins reflex immediately to secondary confirmatory testing. Using the Librato 800 Access Immunoassay systems, the 99th percentile upper reference limit was demonstrated to be < 0.03 ng/mL. 2 Because ethnic data is not always [...] 5 Kidney failure <15 (or dialysis) 3 Desirable: <150 Borderline High: 150-199 High: 200-499 Very High: >500 4 Desirable: <200 Borderline High: 200-239 High: >239 5 Low: <40 Desirable: 40-60 High: >60 6 Desirable: <100 Near Optimal: 100-129 Borderline High: 130-159 High: 160-189 Very High: >189 7 Test Performed by: [address] [address] 8 FASTING 10 HOUR 9 FASTING 10 HOUR 10 Normal Range 180 to 914 Indeterminate Range 145 to 180 Deficient Range <145 11 FASTING 10 HOUR 12 Because ethnic data is not always [...] to calculate due to low microalbumin 18 Because ethnic data is not always readily [...] 15-29 5 Kidney failure <15 (or dialysis) 19 Unable to calculate due to low microalbumin 20 Serum levels of PSA measured using the [employer] DXI Hybritech immunoassay should not be interpreted as absolute evidence of the presence or absence of disease. The PSA value should be used in conjunction with other pertinent clinical diagnostic procedures. The values obtained with different assay methods or kits cannot be used interchangeably. 21 Desirable: <150 Borderline High: 150-199 High: 200-499 Very High: >500 22 Desirable: <200 Borderline High: 200-239 High: >239 23 Low: <40 Desirable: 40-60 High: >60 24 Desirable: <100 Near Optimal: 100-129 Borderline High: 130-159 High: 160-189 Very High: >189 25 Therapeutic target for the treatment of diabetes mellitus patients is <7% HBA1C, and in selective patients <6.0%. Please refer to [employer] diabetic care guidelines for further information. 26 [id number] 27 SEE RESULT BELOW Name: CHINGEMILIANO HOLDEN : [address]: Frederick Camarena MD Acct: [id number] Unit: [id number] AGE: 61 Location: [facility] Re04/13/17 SEX: M Status: REG REF SPEC: [id number] BRAYAN: 04/13/17-[address] [facility] [address]: Frederick Camarena MD REQ: [id number] RECD: 04/13/17 STATUS: COMP _ SOURCE: URINE SPDESC: ORDERED: Urine Culture COMMENTS: [id number] Urine Source: Random Procedure Result Reported Site Urine Culture Final 04/15/17- 825 ML Organism 1 ESCHERICHIA COLI [place] Count 25-50,000 (Moderate) CFU/ML 1. ESCHERICHIA COLI [...] antibiotic reporting. * ML - MAIN LAB ([facility]) . END OF REPORT * ML=Testing performed at Main Lab DEPARTMENT OF PATHOLOGY, [address] [place] [address] Janak Jay M.D. Director [facility] # [id number] 28 FASTING 10 HOUR 29 Desirable <150 Borderline high 150-199 High 200-499 Very High >500 30 Desirable <200 Borderline high 200-239 High >239 31 Low <40 Desirable: 40-60 High: >60 32 Desirable: <100 mg/dL Near Optimal: 100-129 mg/dL Borderline High: 130-159 mg/dL High: 160-189 mg/dL Very High: >189 mg/dL 33 Because ethnic data is not always readily [...] 15-29 5 Kidney failure <15 (or dialysis) 34 Unable to calculate due to low microalbumin 35 Therapeutic target for the treatment of diabetes Mellitus patients is <7% HBA1C, and in selective patients <6.0%.Please refer to [employer] Diabetic care guidelines for further [...] low microalbumin 41 FASTING 10 HOUR 42 Because ethnic data is not always readily [...] 15-29 5 Kidney failure <15 (or dialysis) 43 Therapeutic target for the treatment of diabetes Mellitus patients is <7% HBA1C, and in selective patients <6.0%.Please refer to [employer] Diabetic care guidelines for further information. 44 PT IS FASTING 45 Because ethnic data is not always readily [...] 15-29 5 Kidney failure <15 (or dialysis) 46 Desirable <150 Borderline high 150-199 High [...] 5 Kidney failure <15 (or dialysis) 51 Therapeutic target for the treatment of diabetes Mellitus patients is <7% HBA1C, and in selective patients <6.0%.Please refer to [employer] Diabetic care guidelines for further information. 52 Because ethnic data is not always readily [...] 15-29 5 Kidney failure <15 (or dialysis) 53 Desirable <150 Borderline high 150-199 High 200-499 Very High >500 54 Desirable <200 Borderline high 200-239 High >239 55 Low <40 Desirable: 40-60 High: >60 56 Unable to calculate LDL as triglyceride is > 400 57 Therapeutic target for the treatment of diabetes Mellitus patients is <7% HBA1C, and in selective patients <6.0%.Please refer to [employer] Diabetic care guidelines for further information. 58 PT IS FASTING 59 PT IS FASTING 60 Serum levels of PSA measured using the [employer] DXI Hybritech immunoassay should not be interpreted as absolute evidence of the presence or absence of disease. The PSA value should be used in conjunction with other pertinent clinical diagnostic procedures. The values obtained with different assay methods or kits cannot be used interchangeably. Procedures Date Code Description Status 06/29/2018 54842 Left Heart Cath. 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 of dyspnea Hospitalists R79.89 Other specified abnormal findings of blood chemistry E11.9 Type 2 diabetes mellitus without complications I10 Essential (primary) hypertension Office Visit 06/28/2018 10:40a [facility] Internal Chantelle R06.02 Shortness of breath Medicine Marker, RPA-C Office Visit 05/24/2018 10:40a [facility] Internal Chantelle E11.65 Type 2 diabetes Medicine Marker, RPA-C mellitus with hyperglycemia I10 Essential (primary) hypertension F40.248 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 hyperlipidemia Office Visit 02/20/2018 11:20a [facility] Internal Dimitri Cheung Z00.01 Encounter for Medicine - Son Martell,FACP general adult [address] medical exam w abnormal findings E11.65 Type 2 diabetes mellitus with hyperglycemia 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 I10 Essential (primary) hypertension M75.112 Incomplete rotatr-cuff tear/ruptr of l shoulder, not trauma R10.2 Pelvic and perineal pain Office Visit 12/06/2017 11:40a Sushma Cheung F40.228 Other natural Yovany Martell M.D.,FAC environment type phobia Office Visit 11/08/2017 3:40p Sushma Cheung F40.228 Other natural Yovany Martell M.D.,[facility] environment type phobia Z12.11 Encounter for screening for malignant neoplasm of colon Z23 Encounter for immunization Office Visit 08/30/2017 2:00p [facility] Internal Dimitri Cheung E11.65 Type 2 diabetes Yovany Martell M.D.,FAC mellitus with hyperglycemia N41.1 Chronic prostatitis I10 Essential (primary) hypertension Office Visit 04/26/2017 9:40a [facility] Internal Dimitri Cheung N41.0 Acute prostatitis Yovany Martell M.D.,FACP E11.65 Type 2 diabetes mellitus with hyperglycemia Office Visit 04/13/2017 10:00a [facility] Internal Frederick Camarena, N39.0 Urinary tract Yovany Cline infection, site not specified Office Visit 01/27/2017 9:10a [facility] Dimitri Cheung Z00.01 Encounter for Yovany Martell M.D.,[facility] general adult [address] medical exam w abnormal findings E11.65 Type 2 diabetes mellitus with hyperglycemia I10 Essential (primary) hypertension G47.00 Insomnia, unspecified Z23 Encounter for immunization Office Visit 10/22/2016 [facility] [place] R19.06 Epigastric 7:40a Yovany Camarena M.D. swelling, mass or [address] lump Office Visit 08/17/2016 [facility] Dimitri Cheung E11.65 Type 2 diabetes 8:50a Yovany Martell M.D.,[facility] mellitus with hyperglycemia I10 Essential (primary) hypertension Office Visit 05/21/2016 11:40a [facility] Rhea Mack J01.90 Acute sinusitis, Yovany Camarena M.D. unspecified [address] E11.65 Type 2 diabetes mellitus with hyperglycemia Office Visit 05/13/2016 2:20p [facility] Tanvir Grace J06.9 Acute upper Yovany Bautista M.D. respiratory [place] infection, unspecified Office Visit 03/02/2016 10:10a [facility] Dimitri Cheung E11.65 Type 2 diabetes [facility] hyperglycemia R25.8 Other abnormal involuntary movements B35.3 Tinea pedis Office Visit 11/25/2015 10:30a [facility] Dimitri Cheung Z00.01 [facility] exam w abnormal findings E11.65 Type 2 diabetes mellitus with hyperglycemia I10 Essential (primary) hypertension M10.9 Gout, unspecified Z11.59 Encounter for screening for other viral diseases K22.2 Esophageal obstruction B35.3 Tinea pedis Z23 Encounter for immunization Office Visit 08/19/2015 9:50a [facility] Internal Dimitri Cheung E11.65 Type 2 diabetes Yovany Martell M.D.,FACP mellitus with hyperglycemia I10 Essential (primary) hypertension M10.9 Gout, unspecified G47.00 Insomnia, unspecified Office Visit 05/13/2015 9:30a [facility] Dimitri Cheung E11.65 Type 2 diabetes Yovany Martell M.D.,FACP mellitus with hyperglycemia G56.01 Carpal tunnel syndrome, right upper limb Z23 Encounter for immunization Office Visit 10/03/2014 10:40a [facility] Internal Lenny Angel, 786.2 Cough Medicine OFFC SPEC Office Visit 08/27/2014 10:40a [facility] Tanvir Grace 465.9 URI Upper Yovany Bautista M.D. Respiratory Infections Acute Unspec Sites Office Visit 07/03/2014 9:00a [facility] Internal Gurjit 401.9 Hypertension Unspec Medicine - Nikita Cartagena M.D. Rd 250.02 Diabetes Mellitus W/O Compl Type II Or Unspec Type Uncontrol 272.2 Hyperlipidemia Mixed 530.81 Esophageal Reflux 530.3 Esophageal Stricture & Stenosis 274.9 Gout Unspec 307.49 Sleep Disorder Other 278.00 Obesity Unspec 401.1 Hypertension Benign Office Visit 05/01/2014 9:00a [facility] Internal Gurjit Cartagena, 401.9 Hypertension Unspec Medicine - M.DStanford [address] 250.02 Diabetes Mellitus W/O Compl Type II Or Unspec Type Uncontrol 272.2 Hyperlipidemia Mixed 530.81 Esophageal Reflux 530.3 Esophageal Stricture & Stenosis 274.9 Gout Unspec 401.1 Hypertension Benign Office Visit 04/10/2014 9:00a [facility] Internal Gurjit Cartagena, 401.9 Hypertension Unspec Medicine - M.DStanford [address] 250.02 Diabetes Mellitus W/O Compl Type II Or Unspec Type Uncontrol 272.2 Hyperlipidemia Mixed 530.81 Esophageal Reflux 530.3 Esophageal Stricture & Stenosis 274.9 Gout Unspec 780.4 Dizziness & Giddiness 723.1 Cervicalgia 307.49 Sleep Disorder Other 278.00 Obesity Unspec 401.1 Hypertension Benign Office Visit 03/06/2014 9:00a [facility] Internal Gurjit Cartagena, 401.9 Hypertension Unspec Medicine MCordelia 250.00 Diabetes Mellitus W/O Compl Type II Or Unspec Controlled 272.2 Hyperlipidemia Mixed 530.81 Esophageal Reflux 530.3 Esophageal Stricture & Stenosis 274.9 Gout Unspec 307.49 Sleep Disorder Other 278.00 Obesity Unspec 401.1 Hypertension Benign 250.02 Diabetes Mellitus W/O Compl Type II Or Unspec Type Uncontrol Office Visit 02/08/2014 1:40p [facility] Internal Gurjit Cartagena, V70.0 Examination Medicine Son General Medical Routine [facility] 401.9 Hypertension Unspec 250.00 Diabetes Mellitus W/O Compl Type II Or Unspec Controlled 530.81 Esophageal Reflux 530.3 Esophageal Stricture & Stenosis 274.9 Gout Unspec 307.49 Sleep Disorder Other 278.00 Obesity Unspec Office Visit 09/02/2008 Neurosurgery Kamari Edwards 724.02 Spinal Stenosis, 10:15a [facility] Son [place] Lumbar Region, W/O Neurogenic Claudication Plan of Treatment Future Appointment(s):10/13/2018 9:40 am - Randa Galvan MD at [facility] Internal [place]18/31/2019 8:00 am - Emiliano Saldaña DO FACC at [facility]07/13/2018 - Randa Galvan MDE87.5 HyperkalemiaNew Labs:Basic Metabolic Panel , Ordered: 07/13/18Comments:continue the potassium and mojwxoceqvQ11.10 Atherosclerotic heart disease of [place] coronary artery withComments:follow up with Cardiology next week as scheduled, continue current yetmtkaO00.1 Presence of aortocoronary bypass graftComments:please remember to use your incentive spirometry every hourI42.9 Cardiomyopathy, unspecifiedComments:rlpxsideE74.0 Localized edemaNew Medication:T.E.D. Anti-Embolism Stockings Continuing Care/ Knee/LG/Reg - use daily as ksozvhsmJ82.65 Type 2 diabetes mellitus with hyperglycemiaComments:your glucose [...]
--- OUTSIDE RECORDS SUMMARY | 2018-07-23 08:35 | XMS REPORT | Continuity of Care Document ---
:1955 External Reference #:[id number] Author Name Dori Mirza Care Team Providers Name Role Phone Randa Galvan M.D. Primary Care Physician Unavailable Payers Date Identification Numbers Payment Provider Subscriber Effective: 2011 Policy Number: [id number] [facility] Emiliano Flower Group Name: [facility] [address] [address] PayID: [id number] JadielALBERTA [id number] Expires: 2011 Policy Number: [id number] [facility] Health Plan o Emiliano Flower Group Number: [id number] [facility] Group Name: [facility] [address] PayID: [id number] [place] [address] Advance Directives Type Date Description Status Comment [...] Medications SIG Qnty Indications Ordering Date Provider [place]ar[place] one by mouth every 30tabs Randa Galvan, [...] Chloride take one 30tabs Randatiffany Galvan, 07/05/2018 Emera ER capsule/tablet by 10Meq Tablets mouth twice a day ER Metformin HCL ER take 1 tablet twice 60tabs Tanvir Grace 05/24/2018 a day. Son Bautista 750mg Tablets ER 24HR Fenofibrate 1 by mouth every day 30caps E78.2 Tanvir Grace 05/24/2018 134mg Son Bautista Capsules Trulicity inject 2ml Dimitri Cheung 08/30/2017 1.5mg/0.5ML subcutaneously [place], Solution Pen-Inject weekly Son,FACP Metoprolol Succinate 1 tab by mouth every 135tabs Dimitri Cheung 08/17/2016 ER day [place], 100mg Tablets ER Lima.Skye,FACP 24HR Allopurinol 2 [...] Cheung mouth once daily Jayshree, 100mg Tablets Lima.DStanford,FACP Omeprazole 1 by mouth every day 90tabs Randa Galvan, 20mg MD Tablets DR Cheung Medications Lunesta 1 tablet by mouth 30tabs G47.00 Dimitri Cheung 02/20/2018 - 3mg Tablets at bedtime, as [facility] Martell,[facility] 07/13/2018 needed Sertraline HCL 1/2 qd for 3 wks 30tabs Dimitri Cheung 02/20/2018 - 50mg then 1 by mouth Son Martell,[facility] 06/28/2018 Tablets every day Citalopram 1/2 by [...] - 500mg day x 7 days Son Martell,[facility] 05/24/2017 Tablets Ciprofloxacin HCL twice a day 28tabs N39.0 Frederick 04/13/2017 - 500mg Son Camarena 04/26/2017 Tablets Metformin HCL 1 by mouth 3x a 90tabs Tanvir Grace 04/04/2017 - 500mg day Son Bautista 05/24/2018 Tablets Invokamet 1 po bid 60tabs Dimitri Cheung 02/11/2017 - 50-500mg Son Martell,[facility] 04/04/2017 Tablets Xigduo XR 1 tab po bid 60tabs Dimitri Cheung 01/27/2017 - 5-500mg Tablets (patient bringing Son Martell,[facility] 02/11/2017 ER 24HR copay card) Belsomra 1 by mouth every 30tabs Dimitri Cheung 01/27/2017 - 10mg Tablets night at bedtime Son Martell,[facility] 03/03/2017 Rosuvastatin Calcium 1 by mouth every 90tabs Dimitri Cheung 11/02/2016 - 5mg night at bedtime Son Martell,[facility] 05/24/2018 Tablets Metformin HCL 1 by mouth twice 60tabs Dimitri Cheung 08/17/2016 - 850mg a day Son Martell,[facility] 01/27/2017 Tablets Bydureon inject 2 mg sc 4units Dimitri Cheung 08/17/2016 - 2mg Pen weekly Son Martell,[facility] 08/30/2017 Clindamycin HCL 1 tabs by mouth 40caps J01.90 [place] 05/21/2016 - 300mg every 6h Son Camarena 05/31/2016 Capsules Lamisil AT topical once a 42gm Dimitri Cheung 03/02/2016 - 1% Cream day for 2 wks Son Martell,[facility] 04/26/2017 minumum, 4 wks max Betamethasone topical every day 15gm Dimitri Cheung 03/02/2016 - Dipropionate to affected areas Son Martell,[facility] 04/26/2017 0.05% Cream Econazole Nitrate topical twice a 30gm B35.3 Dimitri Cheung 11/25/2015 - 1% day max 4 weeks Son Martell,[facility] 03/02/2016 Cream Trazodone HCL 1-2 every night 60tabs G47.00 Dimitri Cheung 08/19/2015 - 50mg at bedtime Son Martell,[facility] 11/25/2015 Tablets Janumet XR 1 tab by mouth 180tabs Dimitri Cheung 07/31/2015 - 50-500mg twice a day Son Martell,[facility] 08/17/2016 Tablets ER 24HR Janumet XR 1 by mouth twice 60tabs Dimitri Cheung 05/13/2015 - 50-1000mg a day Son Martell,[facility] 07/31/2015 Tablets ER 24HR Repaglinide 1 tablet by mouth 90tabs Dimitri Cheung 01/01/2015 - 0.5mg Tablets 15-30 minutes Son Martell,[facility] 06/28/2018 before meals three times a [...] Cheung 05/01/2014 - 500mg a day Son Martell,[facility] 05/13/2015 Tablets Meclizine HCL 1 tablet twice a 30tabs 780.4 Gurjit Cartagena, 04/10/2014 - 12.5mg day, as needed M.DStanford 07/03/2014 Tablets Cyclobenzaprine HCL 1 tablet by [...] Januvia 1 tablet po daily 60tabs Gurjit Osiel, 02/28/2014 - 50mg Tablets M.D. 05/01/2014 Allopurinol [...] Code Status Date Vaccine Reaction Lot # 61532 Given 11/08/2017 Influenza Virus Vaccine, [id number] Quadrivalent, Split, Preservative Free [id number] Given 01/27/2017 Zoster (Zostavax) [id number] Given 12/04/2016 Influenza Virus Vaccine, Quadrivalent, Split, Preservative Free 61014 Given 06/22/2016 Pneumococcal Conjugate Vaccine 13 Valent For Intramuscular Use Q2037 Given 12/07/2015 Fluvirin Im 3Yrs And Older 63820 Given 11/25/2015 Tdap - no reaction noted ... [id number] Tetanus/Diptheria/Acellular hh Pertussis 94723 Given 05/13/2015 Pneumonia Vaccine [id number] Q2039 Given 12/07/2014 Flu Vaccine NOS Vital [...] Result H/L Range Note Basic Metabolic 07/13/2018 [facility] Sodium 131 mmol/L Low 135-145 Panel [address] [place] [address] [phone] Potassium 4.6 mmol/L N 3.5-5.0 Chloride 99 mmol/L Low 101-111 Co2 Carbon Dioxide 22 mmol/L N 22-32 Anion Gap 10 mmol/L N 2-11 Glucose 352 mg/dL High 70-100 Blood Urea Nitrogen 18 mg/dL N 6-24 Creatinine 1.01 mg/dL N 0.67-1.17 BUN/Creatinine Ratio 17.8 N 8-20 Calcium 8.8 mg/dL N 8.6-10.3 Egfr Non- 74.4 >60 Egfr 90.0 >60 1 Laboratory test 06/28/2018 [facility] Troponin-I 0.20 ng/mL High <0.[address] (TnI) [place] [address] [phone] B-Type Natriuretic Peptide BNP 256 pg/mL High <=100 C Reactive Protein 1.43 mg/L N <8.01 Erythrocyte Sed Rate 25 mm/Hr High 0-19 CBC Auto Diff 06/28/2018 [facility] White Blood 7.4 10^3/uL N 3.5-10.[address] [place] [address] [phone] Red Blood Count 4.71 10^6/uL N 4.18-5.48 [...] Cells % 0.1 Comp Metabolic Panel 06/28/2018 [facility] Sodium 132 mmol/L Low 135-[address] [place] [address] [phone] Potassium 4.5 mmol/L N 3.5-5.0 Chloride 101 [...] Egfr 89.0 >60 3 Lipid Profile 06/23/2018 [facility] Triglycerides 320 mg/dL 4 (Trig/Chol/HDL) [address] [place] [address] [phone] Cholesterol 196 mg/dL 5 HDL Cholesterol 30.3 mg/dL 6 LDL Cholesterol 102 mg/dL 7 Laboratory 06/23/2018 [facility] Fructosamine 427 Abnormal 200 - [address] [facility] mcmol/L [address] [place] [address] [phone] Laboratory 05/24/2018 [facility] Hemoglobin A1c 9.1 High 5-7 test finding Laboratory 05/16/2018 [facility] TSH (Thyroid 2.33 N 0.34-5 9 , test finding [address] [facility] Stim Horm) mcIU/mL .60 10 [place] [address] [phone] Vitamin B12 579 pg/mL N 180-914 11 Laboratory test 05/16/2018 [facility] Uric Acid 5.9 mg/dL N 4.4-7.6 12 finding [address] [place] [address] [phone] Basic Metabolic 05/16/2018 [facility] Sodium 134 mmol/L Low 135-145 Panel [address] [place] [address] [phone] Potassium 4.4 mmol/L N 3.5-5.0 Chloride 102 mmol/L N 101-111 Co2 Carbon Dioxide 24 mmol/L N 22-32 Anion Gap 8 mmol/L N 2-11 Glucose 231 mg/dL High 70-100 Blood Urea Nitrogen 16 mg/dL N 6-24 Creatinine 0.95 mg/dL N 0.67-1.17 BUN/Creatinine Ratio 16.8 N 8-20 Calcium 8.9 mg/dL N 8.6-10.3 Egfr Non- 79.8 >60 Egfr 96.6 >60 13 Lipid Profile 05/16/2018 [facility] Triglycerides 357 mg/dL 14 (Trig/Chol/HDL) [address] [place] [address] [phone] Cholesterol 196 mg/dL 15 HDL Cholesterol 29.8 mg/dL 16 LDL Cholesterol 95 mg/dL 17 Urine Microalbumin 05/16/2018 [facility] Ur Microalbumin < 15.[address] (mg/L) mg/[place] [address] [phone] Urine Creatinine 129.35 mg/dL Urine Microalbumin/Creatinine TNP <31 18 Laboratory test 02/20/2018 [facility] Hemoglobin A1c 7.6 High 5-7 finding Basic Metabolic 11/28/2017 [facility] Sodium 137 mmol/L N 135- [address] [place] [address] [phone] Potassium 4.4 mmol/L N 3.5-5.0 Chloride 102 mmol/L N 101-111 Co2 Carbon Dioxide 28 mmol/L N 22-32 Anion Gap 7 mmol/L N 2-11 Glucose 143 mg/dL High 70-100 Blood Urea Nitrogen 15 mg/dL N 6-24 Creatinine 0.98 mg/dL N 0.67-1.17 BUN/Creatinine Ratio 15.3 N 8-20 Calcium 8.8 mg/dL N 8.6-10.3 Egfr Non- 77.0 >60 Egfr 93.2 >60 19 Laboratory test 11/28/2017 [facility] Uric Acid 5.0 mg/dL N 4.4-7.[address] [place] [address] [phone] Laboratory test 08/30/2017 [facility] Hemoglobin A1c 6.7 5-7 finding Urine 08/30/2017 [facility] Ur Microalbumin < 15.[address] (mg/L) mg/[place] [address] [phone] Urine Creatinine 140.88 mg/dL Urine Microalbumin/Creatinine TNP ug/mg <31 20 Laboratory 06/10/2017 [facility] PSA Screening 1.314 N 0-4.0 21 test finding [address] ng/mL [place], [place] [phone] Laboratory 04/19/2017 [facility] Hemoglobin A1c 8.0 % High 4.0 -5.6 22 test finding [address] (Glyco HGB) [place] [address] [phone] Lipid Profile 04/19/2017 [facility] Triglycerides 269 mg/dL 23 (Trig/Chol/HDL [address] ) [place] [address] [phone] Cholesterol 155 mg/dL 24 HDL Cholesterol 26.1 mg/dL 25 LDL Cholesterol 75 mg/dL 26 Ua Routine 04/13/2017 [facility] Ua Specific [place] 1.005 Ua PH 6 Ua Color yellow Ua Appera clear Ua WBC trace Ua Protein neg Ua Glucose normal Ua Ketones neg Ua Bilirubin neg Ua Urobilinogen normal Ua Nitrite neg Ua Occult Blood neg Urine Culture And 04/13/2017 [facility] Urine Culture SEE RESULT 27, [address] [place] [address] [phone] Laboratory test 01/27/2017 [facility] Hemoglobin A1c 8.0 High 5-7 finding Laboratory test 08/17/2016 [facility] Hemoglobin A1c 9.7 High 5-7 finding Urine 08/11/2016 [facility] Urine 159.08 N Microalbumin [address] Creatinine mg/[place] [address] [phone] Ur Microalbumin (mg/L) < 15.0 mg/L N Urine Microalbumin/Creatinine TNP ug/mg N <31 29 Laboratory test 08/11/2016 [facility] Uric Acid 6.0 mg/dL N 4.4-7.6 [address] [place] [address] [phone] Basic Metabolic 08/11/2016 [facility] Sodium 135 mmol/L N 133- [address] [place] [address] [phone] Potassium 4.2 mmol/L N 3.5-5.0 Chloride 101 mmol/L N 101-111 Co2 Carbon Dioxide 26 mmol/L N 22-32 Anion Gap 8 mmol/L N 2-11 Glucose 194 mg/dL High 70-100 Blood Urea Nitrogen 16 mg/dL N 6-24 Creatinine 0.93 mg/dL N 0.67-1.17 BUN/Creatinine Ratio 17.2 N 8-20 Calcium 9.1 mg/dL N 8.6-10.3 Egfr Non- 82.3 N >60 Egfr 105.9 N >60 31 Lipid Profile 08/11/2016 [facility] Triglycerides 331 mg/dL N 32 (Trig/Chol/HDL) [address] [place] [address] [phone] Cholesterol 191 mg/dL N 33 HDL Cholesterol 29.4 mg/dL N 34 LDL Cholesterol 95 mg/dL N 35 Laboratory test 05/21/2016 [facility] Hemoglobin A1c 8.9 High 5-7 finding Laboratory test 02/26/2016 [facility] Hepatitis C Nonreactive N Nonreactive finding [address] [place] [address] [phone] Hemoglobin A1c (Glyco HGB) 7.6 % High Less than 6.0 36 Uric Acid 6.2 mg/dL N 4.4-7.6 Laboratory test 11/25/2015 [facility] Hemoglobin A1c 7.8 High 5-7 finding Comp Metabolic 08/12/2015 [facility] Sodium 136 mmol/L N 133- 145 Panel [address] [place] [address] [phone] Potassium 4.4 mmol/L N 3.5-5.0 Chloride 102 [...] 103.7 N >60 37 Laboratory test 08/12/2015 [facility] Hemoglobin A1c 8.1 % High Less [address] (Glyco HGB) than 6.0 [place] [address] [phone] Lipid Profile 08/12/2015 [facility] Triglycerides 292 N 39 (Trig/Chol/HDL) [address] mg/[place] [address] [phone] Cholesterol 182 mg/dL N 40 HDL Cholesterol 28.7 mg/dL N 41 LDL Cholesterol 95 mg/dL N 42 Urine Microalbumin 08/12/2015 [facility] Ur Microalbumin < 5.0 mg/L N Random [address] (mg/L) [place] [address] [phone] Urine Creatinine 189.19 mg/dL N Urine Microalbumin/Creatinine TNP ug/mg N <31 43 Urinalysis Profile 08/12/2015 [facility] Urine Color Yellow N [address] [place] [address] [phone] Urine Appearance Clear N Urine Specific [place] 1.018 N 1.010-1.030 Urine pH 6.0 N 5-9 Urine Urobilinogen Negative N Negative Urine Ketones Negative N Negative Urine Protein Negative N Negative Urine Leukocytes Negative N Negative Urine Blood Negative N Negative Urine Nitrite Negative N Negative Urine Bilirubin Negative N Negative Urine Glucose Negative N Negative Laboratory test 08/12/2015 [facility] Uric Acid 5.6 mg/dL N 4.4-7.6 [address] [place] [address] [phone] CBC Auto Diff 08/12/2015 [facility] White Blood 6.7 10^3/uL N 3.5-10.[address] [place] [address] [phone] Red Blood Count 4.80 10^6/uL N 4.0-5.4 [...] Cells % 0.2 N Laboratory test 05/13/2015 [facility] Hemoglobin A1c 9.0 High 5-7 finding Comp Metabolic 08/07/2014 [facility] Sodium 136 mmol/L N 133- [address] [place] [address] [phone] Potassium 3.9 mmol/L N 3.5-5.0 Chloride 102 [...] 109.3 N >60 46 Lipid Profile 08/07/2014 [facility] Triglycerides 350 mg/dL N 47 (Trig/Chol/HDL) [address] [place] [address] [phone] Cholesterol 185 mg/dL N 48 HDL Cholesterol [...] than 52 finding 6.0 Urine Microalbumin 02/15/2014 [facility] Ur Microalbumin 7.0 mg/ L N Random [address] (mg/L) [place] [address] [phone] Urine Creatinine 223.17 mg/dL N Urine Microalbumin/Creatinine 3.1 N Less Than 31 Laboratory test 02/15/2014 [facility] Uric Acid 4.6 mg/dL N 4.4-7.6 [address] [place] [address] [phone] TSH (Thyroid Stimulating Horm) 2.46 IU/mL N 0.34-5.60 54 PSA Diagnostic 0.742 ng/mL N 0-4.000 55 Comp Metabolic Panel 02/15/2014 [facility] Sodium 132 mmol/L Low 133-[address] [place] [address] [phone] Potassium 4.2 mmol/L N 3.5-5.0 Chloride 97 [...] 90.7 N >60 56 Urinalysis Profile 02/15/2014 [facility] Urine Color Yellow N [address] [place] [address] [phone] Urine Appearance Clear N Urine Specific [place] 1.019 N 1.010-1.030 Urine pH 6.0 N 5-9 Urine Urobilinogen Negative N Negative Urine Ketones Negative N Negative Urine Protein Negative N Negative Urine Leukocytes Negative N Negative Urine Blood Negative N Negative Urine Nitrite Negative N Negative Urine Bilirubin Negative N Negative Urine Glucose 1+(50 mg/dL) Abnormal Negative CBC Auto Diff 02/15/2014 [facility] White Blood 6.8 10^3/uL N 4.8-10.[address] [place] [address] [phone] Red Blood Count 5.08 10^6/uL N 4.0-5.4 [...] Cells % 0.1 N Lipid Profile 02/15/2014 [facility] Triglycerides 474 mg/dL N 57 (Trig/Chol/HDL) [address] [place] [address] [phone] Cholesterol 193 mg/dL N 58 HDL Cholesterol 28.0 mg/dL N 59 LDL Cholesterol (SEE NOTE) mg/dL N 60 Laboratory test 02/15/2014 [facility] Hemoglobin A1c 11.8 % High Less than [address] 6.0 [place] [address] [phone] 1 Because ethnic data is not always [...] Called to DUANE Edwards RN at: 14:14:09 by:[id number] Read back by:DUANE M. RN Troponin-I testing on Plasma Separator Tubes (PST) has a known false positive rate of 0.20-0.40%. All positive troponins reflex immediately to secondary confirmatory testing. Using the [employer] DxI 800 Access Immunoassay systems, the 99th [...] Very High: >189 8 Test Performed by: [address] [address] 9 FASTING 10 HOUR 10 FASTING 10 [...] levels of PSA measured using the [employer] DXI Hybritech immunoassay should not be interpreted [...] in selective patients <6.0%. Please refer to [place] [employer] diabetic care guidelines for further information. 23 Desirable: <150 Borderline High: 150-199 High: 200-499 Very High: >500 24 Desirable: <200 Borderline High: 200-239 High: >239 25 Low: <40 Desirable: 40-60 High: >60 26 Desirable: <100 Near Optimal: 100-129 Borderline High: 130-159 High: 160-189 Very High: >189 27 [id number] SEE RESULT BELOW Name: EMILIANO FLOWER : [address]: Frederick Camarena MD Acct: [id number] Unit: [id number] AGE: 61 Location: [facility] Re04/13/17 SEX: M Status: REG REF SPEC: [id number] BRAYAN: 04/13/17-[address] [facility] [address]: Frederick Camarena MD REQ: [id number] RECD: 04/13/17 STATUS: COMP _ SOURCE: URINE SPDESC: ORDERED: Urine Culture COMMENTS: [id number] Urine Source: Random Procedure Result Reported Site Urine Culture Final 04/15/17- 825 ML Organism 1 ESCHERICHIA COLI Bland Count 25-50,000 (Moderate) CFU/ML 1. ESCHERICHIA COLI [...] antibiotic reporting. * ML - MAIN LAB ([facility]) . END OF REPORT * ML=Testing performed at Main Lab DEPARTMENT OF PATHOLOGY, [address] [place] [address] Janak Jay M.D. Director [facility] # [id number] 29 Unable to calculate due to low [...] and in selective patients <6.0%.Please refer to [place] [employer] Diabetic care guidelines for further [...] and in selective patients <6.0%.Please refer to [place] [employer] Diabetic care guidelines for further [...] and in selective patients <6.0%.Please refer to [place] [employer] Diabetic care guidelines for further information. 53 PT IS FASTING 54 PT IS FASTING 55 Serum levels of PSA measured using the [employer] DXI Hybritech immunoassay should not be interpreted [...] and in selective patients <6.0%.Please refer to [place] [employer] Diabetic care guidelines for further information. Procedures Date Code Description Status 06/29/2018 07550 Left Heart Cath. Incl S/I Coronaries, Angio S/I V Gram Completed If Done 06/29/2018 48038 Left Heart Cath. Incl S/I Coronaries, Angio S/I V Gram Completed If Done 06/29/2018 60037 ECHO Transthorasic Realtime 2D W Doppler & Color Flow Completed Hosp 06/29/2018 12637 Treadmill Interp/Report Only Completed 06/29/2018 12154 Stress Test Supervsn W/Out I/R Completed 01/25/2018 [id number] Colonoscopy Completed 09/30/2017 [id number] Diabetic Retinal Eye Exam Completed 03/22/2014 [id number] Diabetic Retinal Eye Exam Completed 05/23/2007 [id number] Colonoscopy Completed Encounters Type Date Location Provider Dx Diagnosis Office Visit 06/29/2018 [facility] Teresa Sang, R06.09 Other forms of 12:35p [facility] [employer] [facility] [place] [employer] dyspnea R79.89 Other specified abnormal findings of blood chemistry R94.39 Abnormal result of other cardiovascular function study I10 Essential (primary) hypertension [facility] I[facility]10 [facility] 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 I42.9 Cardiomyopathy, unspecified I34.0 Nonrheumatic mitral (valve) insufficiency I10 Essential (primary) hypertension E11.65 Type 2 diabetes mellitus with hyperglycemia Office Visit 06/28/2018 10:40a [facility] Juanita Novak, R06.09 Other forms Assoc,alicia Cline of dyspnea Hospitalists R79.89 Other specified abnormal findings of blood chemistry E11.9 Type 2 diabetes mellitus without complications I10 Essential (primary) hypertension Office Visit 06/28/2018 10:40a [facility] Internal Chantelle R06.02 Shortness of breath Medicine Marker, RPA-C Office Visit 05/24/2018 10:40a [facility] Chantelle E11.65 Type 2 diabetes Medicine Marker, RPA-C mellitus with hyperglycemia I10 Essential (primary) hypertension F40.248 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 hyperlipidemia Office Visit 02/20/2018 11:20a [facility] Dimitri Cheung Z00.01 Encounter for Medicine - Son Martell,FACP general adult [address] medical exam w abnormal findings E11.65 Type 2 diabetes mellitus with hyperglycemia 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 I10 Essential (primary) hypertension M75.112 Incomplete rotatr-cuff tear/ruptr of l shoulder, not trauma R10.2 Pelvic and perineal pain Office Visit 12/06/2017 11:40a [facility] Dimitri Cheung F40.228 Other natural Medicine Son Martell,[facility] environment type phobia Office Visit 11/08/2017 3:40p [facility] Dimitri Cheung F40.228 Other natural Medicine Son Martell,[facility] environment type phobia Z12.11 Encounter for screening for malignant neoplasm of colon Z23 Encounter for immunization Office Visit 08/30/2017 2:00p [facility] Dimitri Cheung E11.65 Type 2 diabetes Yovany Martell M.D.,[facility] mellitus with hyperglycemia N41.1 Chronic prostatitis I10 Essential (primary) hypertension Office Visit 04/26/2017 9:40a [facility] Internal Dimitri Cheung N41.0 Acute prostatitis [facility] M.D.,[facility] E11.65 Type 2 diabetes mellitus with hyperglycemia Office Visit 04/13/2017 10:00a [facility] Internal Frederick Camarena, N39.0 Urinary tract Yovany Cline infection, site not specified Office Visit 01/27/2017 9:10a [facility] Internal Dimitri Cheung Z00.01 Encounter for Yovany Martell M.D.,[facility] general adult [address] medical exam w abnormal findings E11.65 Type 2 diabetes mellitus with hyperglycemia I10 Essential (primary) hypertension G47.00 Insomnia, unspecified Z23 Encounter for immunization Office Visit 10/22/2016 [facility] Internal Frederick R19.06 Epigastric 7:40a Yovany Camarena M.D. swelling, mass or [address] lump Office Visit 08/17/2016 [facility] Dimitri Cheung E11.65 Type 2 diabetes 8:50a Yovany Martell M.D.,[facility] mellitus with hyperglycemia I10 Essential (primary) hypertension Office Visit 05/21/2016 11:40a [facility] Rhea Mack J01.90 Acute sinusitis, Yovany Camarena M.D. unspecified [address] E11.65 Type 2 diabetes mellitus with hyperglycemia Office Visit 05/13/2016 2:20p [facility] Internal Tanvir Grace J06.9 Acute upper Yovany Bautista M.D. respiratory [place] infection, unspecified Office Visit 03/02/2016 10:10a [facility] Internal Dimitri Cheung E11.65 Type 2 diabetes jannet Guillen with Son,[facility] hyperglycemia R25.8 Other abnormal involuntary movements B35.3 Tinea pedis Office Visit 11/25/2015 10:30a [facility] Internal Dimitri Cheung Z00.01 Encounter for Yovany Martell M.D.,[facility] general adult medical exam w abnormal findings E11.65 Type 2 diabetes mellitus with hyperglycemia I10 Essential (primary) hypertension M10.9 Gout, unspecified Z11.59 Encounter for screening for other viral diseases K22.2 Esophageal obstruction B35.3 Tinea pedis Z23 Encounter for immunization Office Visit 08/19/2015 9:50a [facility] Dimitri Cheung E11.65 Type 2 diabetes Yovany Martell M.D.,FACP mellitus with hyperglycemia I10 Essential (primary) hypertension M10.9 Gout, unspecified G47.00 Insomnia, unspecified Office Visit 05/13/2015 9:30a [facility] Dimitri Cheung E11.65 Type 2 diabetes Medicine Son Martell,FACP mellitus with hyperglycemia G56.01 Carpal tunnel syndrome, right upper limb Z23 Encounter for immunization Office Visit 10/03/2014 10:40a [facility] Lenny Angel, 786.2 Cough Medicine SUPERVISING CHEF Office Visit 08/27/2014 10:40a [facility] Tanvir Grace 465.9 URI Upper Yovany Bautista M.D. Respiratory Infections Acute Unspec Sites Office Visit 07/03/2014 9:00a [facility] Gurjit 401.9 Hypertension Unspec Medicine - Nikita Cartagena M.D. Rd 250.02 Diabetes Mellitus W/O Compl Type II Or Unspec Type Uncontrol 272.2 Hyperlipidemia Mixed 530.81 Esophageal Reflux 530.3 Esophageal Stricture & Stenosis 274.9 Gout Unspec 307.49 Sleep Disorder Other 278.00 Obesity Unspec 401.1 Hypertension Benign Office Visit 05/01/2014 9:00a [facility] Gurjit Cartagena, 401.9 Hypertension Unspec Medicine - [address] 250.02 Diabetes Mellitus W/O Compl Type II Or Unspec Type Uncontrol 272.2 Hyperlipidemia Mixed 530.81 Esophageal Reflux 530.3 Esophageal Stricture & Stenosis 274.9 Gout Unspec 401.1 Hypertension Benign Office Visit 04/10/2014 9:00a [facility] Gurjit Cartagena, 401.9 Hypertension Unspec Medicine - M.[address] 250.02 Diabetes Mellitus W/O Compl Type II Or Unspec Type Uncontrol 272.2 Hyperlipidemia Mixed 530.81 Esophageal Reflux 530.3 Esophageal Stricture & Stenosis 274.9 Gout Unspec 780.4 Dizziness & Giddiness 723.1 Cervicalgia 307.49 Sleep Disorder Other 278.00 Obesity Unspec 401.1 Hypertension Benign Office Visit 03/06/2014 9:00a [facility] Gurjit Cartagena, 401.9 Hypertension Unspec Medicine M.[facility] 250.00 Diabetes Mellitus W/O Compl Type II Or Unspec Controlled 272.2 Hyperlipidemia Mixed 530.81 Esophageal Reflux 530.3 Esophageal Stricture & Stenosis 274.9 Gout Unspec 307.49 Sleep Disorder Other 278.00 Obesity Unspec 401.1 Hypertension Benign 250.02 Diabetes Mellitus W/O Compl Type II Or Unspec Type Uncontrol Office Visit 02/08/2014 1:40p [facility] Gurjit Cartagena, V70.0 Examination Medicine [facility] 401.9 Hypertension Unspec 250.00 Diabetes Mellitus W/O Compl Type II Or Unspec Controlled 530.81 Esophageal Reflux 530.3 Esophageal Stricture & Stenosis 274.9 Gout Unspec 307.49 Sleep Disorder Other 278.00 Obesity Unspec Office Visit 09/02/2008 Neurosurgery Kamari [facility] 724.02 Spinal Stenosis, 10:15a [facility] Son Navarro Lumbar Region, W/O Neurogenic Claudication Plan of Treatment Future Appointment(s):10/13/2018 9:40 am - Randa Galvan MD at [facility] Internal Yajpkduz03/31/2019 8:00 am - Emiliano Saldaña DO FACC at [facility]07/13/2018 - Randa Galvan MDI25.10 Atherosclerotic heart disease of [place] coronary artery withComments:follow up with Cardiology next week as scheduled, continue current [id number] HypokalemiaNew Labs:Basic Metabolic Panel, Ordered : 07/13/18Comments:continue the potassium and uordehjxupA35.1 Presence of aortocoronary bypass graftComments:please remember to use your incentive spirometry every hourI42.9 Cardiomyopathy, unspecifiedComments:kgpuozvoP91.0 Localized edemaNew Medication:T.E.D. Anti-Embolism Stockings Continuing Care/ Knee/LG/Reg - use daily as ssvucacvN15.65 Type 2 diabetes mellitus with hyperglycemiaComments:your glucose [...]
--- NOTE | 2018-07-23 08:42 | UC ---
Skin Complaint HPI - HPI Summary HPI Summary: Open heart surgery on 06/30 and rash started at incision 5 days ago. Pt. did have bandage but had to remove it as it was making rash worse. Rash is itchy, sometimes painful to touch and crusting. denies dishcarge, fever, n/v, chest pain, difficulty breathing. - History of Current Complaint Time Seen by Provider: 07/23/18 08:30 Stated Complaint: RASH Hx Obtained From: Patient Onset/Duration: Gradual Onset - 5 days ago Aggravating Factor(s): Touch Alleviating Factor(s): Nothing - Allergy/Home Medications Allergies/Adverse Reactions: Allergies Allergy/AdvReac Type Severity Reaction Status Date / Time codeine Allergy GI Upset Verified 06/28/18 12:58 doxycycline Allergy Rash Verified 06/28/18 12:58 Penicillins Allergy Dizziness Verified 06/28/18 12:58 Sulfa (Sulfonamide Allergy Rash Verified 06/28/18 12:58 Antibiotics) Home Medications: Home Medications Aspirin [Aspir-Low] 81 mg PO QAM MDD 81mg 07/23/18 [History Confirmed 07/23/18] Atorvastatin* [Lipitor 40 MG*] 40 mg PO MDD 40mg 07/23/18 [History] Carvedilol TAB* [Coreg TAB*] 6.25 mg PO BID MDD 12.5 07/23/18 [History Confirmed 07/23/18] Clopidogrel Bisulfate [Plavix] 75 mg PO 07/23/18 [History] Hydrocodone/Acetaminophen [Hydrocodone-Acetamin 5-325 mg] 1 - 2 tab PO Q4H PRN MDD 12 07/23/18 [History Confirmed 07/23/18] PMH/Surg Hx/FS Hx/Imm Hx Previously Healthy: Yes Endocrine History: Diabetes Cardiovascular History: Cardiac Disease - Surgical History Surgical History: Yes Surgery Procedure, Year, and Place: tonsils; orthoscopic R knee; benign lipoma removed from shoulder (benign) - Family History Known Family History: Positive: Hypertension, Diabetes - Social History Alcohol Use: Daily Alcohol Amount: 2-4 glasses wine per week Substance Use Type: None Smoking Status (MU): Never Smoked Tobacco Review of Systems All Other Systems Reviewed And Are Negative: Yes Constitutional: Negative: Fever Skin: Positive: Rash. Negative: Bruising Respiratory: Positive: Negative Cardiovascular: Positive: Negative Physical Exam Triage Information Reviewed: Yes Appearance: Well-Appearing Vital Signs Reviewed: Yes Respiratory Exam: Normal Cardiovascular Exam: Normal Neurological: Positive: Alert Skin: Positive: Rashes - inflammation and crusting along incision in middle of chest, few patches off to either side of incision. no purulent material noted. incision well healed. Course/Dx - Course Course Of Treatment: Crusting and inflammation at and around incision. There is thought there may be allergy to adhesive from bandage and from that a very mild to slightly moderate superficial skin infection. The incision is uncompromised and rash is not noted anywhere else on body. Will give po antibx, should have close f/u w/ surgeon, and topical steroid suggested. Not thought to be infectious or drug related. Afebrile and good vitals. - Differential Diagnoses - Skin Complaint Differential Diagnoses: Cellulitis, Drug Rash, Impetigo, Tinea, Other - Diagnoses Provider Diagnosis: Superficial bacterial infection of skin, Allergic contact dermatitis due to adhesives Discharge - Sign-Out/Discharge Documenting (check all that apply): Patient Departure All imaging exams completed and their final reports reviewed: No Studies - Discharge Plan Condition: Good Disposition: HOME Prescriptions: Clindamycin HCl 300 mg PO BID 7 Days #14 capsule Patient Education Materials: Impetigo (ED) Referrals: Chantelle Baker PA [Primary Care Provider] - Additional Instructions: It appears you have an Impetigo-like rash and a sensitivity to the adhesive. Please follow up with the surgical team a little sooner than 07/31 - Billing Disposition and Condition Condition: GOOD Disposition: Home
[2018-07-23 08:45] VITALS: BP 116/67
== END 2018-07-23 09:13 | disposition home or self-care (01) ==
LOC: UCEAST 08:29
DX: L08.9 Local infection of the skin and subcutaneous tissue, unspecified (principal); B96.89 Other specified bacterial agents as the cause of diseases classified elsewhere; L23.1 Allergic contact dermatitis due to adhesives; E11.9 Type 2 diabetes mellitus without complications; Z79.82 Long term (current) use of aspirin; Z95.1 Presence of aortocoronary bypass graft; Z88.1 Allergy status to other antibiotic agents; Z88.5 Allergy status to narcotic agent; Z88.0 Allergy status to penicillin; Z88.2 Allergy status to sulfonamides
CPT/HCPCS: 99212; G0463

== ENCOUNTER 2021-04-10 15:14 | Observation (INO) ==
[2021-04-10] MEDS ORDERED: NS 0.9% 1000 ml BAG 1,000 ML IV ONE (17:03)
[2021-04-10 17:19] LABS: ABS Basophils 0.1 10^3/ul (0-0.2); ABS Eosinophils 0.2 10^3/ul (0-0.6); ABS Lymphocytes 1.5 10^3/ul (1.0-4.8); ABS Monocytes 0.7 10^3/ul (0-0.8); ABS Neutrophils 5.4 10^3/ul (1.5-7.7); Eosinophil % 2.8 %; Hematocrit 46 % (42-52); Hemoglobin 15.8 g/dL (14.0-18.0); Lymphocyte % 19.4 %; Mean Corpuscular HGB Conc 34 g/dL (31-36); Mean Corpuscular Hemoglobin 32 pg (27-31); Mean Corpuscular Volume 93 fL (80-94); Mean Platelet Volume 9.4 fL (7.4-10.4); Nucleated Red Blood Cells % 0.1; Platelet Count 153 10^3/uL (150-450); Red Blood Count 4.95 10^6 /uL (4.18-5.48); Red Cell Distribution Width 14 % (10-15); White Blood Count 7.9 10^3/uL (3.5-10.8)
[2021-04-10] MEDS ORDERED: Iodixanol (CONTRAST) 320 MG/ML 100 ML SDV IV ONE (17:22)
[2021-04-10 17:27] LABS: Activated Partial Thrombo Time 32.4 seconds (26.0-38.0); INR 1.07 (0.86-1.15)
[2021-04-10 17:32] LABS: ALT 25 U/L (7-52); AST 22 U/L (13-39); Albumin 4.4 g/dL (3.2-5.2); Albumin/Globulin Ratio 1.5 (1-3); Alkaline Phosphatase 70 U/L (35-149); Anion Gap 8 mmol/L (2-11); Blood Urea Nitrogen 11 mg/dL (6-24); CO2 Carbon Dioxide 25 mmol/L (22-32); Calcium 9.5 mg/dL (8.6-10.3); Chloride 103 mmol/L (101-111); Cholesterol 93 mg/dL; Globulin 2.9 g/dL (2-4); Glucose 156 mg/dL (70-100); HDL Cholesterol 30.8 mg/dL; LDL Cholesterol 33 mg/dL; Potassium 4.2 mmol/L (3.5-5.0); Sodium 136 mmol/L (135-145); Total Protein 7.3 g/dL (6.4-8.9); Triglycerides 146 mg/dL; eGFR CKD-EPI 92.4 (>60)
[2021-04-10 17:33] LABS: Troponin I 0.01 ng/mL (<0.03)
[2021-04-10] MEDS ORDERED: Labetalol IV 5 MG/ML 20 ml VIAL IV PUSH ONE ×3 (17:35→19:02)
[2021-04-10] MEDS ORDERED: Dextrose 50% Syringe 50 ml 25 GM/50 ML SYRINGE IV PUSH PRN (19:46)
[2021-04-10] MEDS ORDERED: Labetalol IV 5 MG/ML 20 ml VIAL IV PUSH PRN (19:49)
[2021-04-10 19:50] LABS: C Reactive Protein < 1.00 mg/L (<8.01)
[2021-04-10] MEDS ORDERED: hydrALAZINE 20 mg/ml 1 ML Vial IV IV SLOW PU PRN (19:51)
[2021-04-10] MEDS: Enoxaparin 40 MG/0.4 ML SYR SUBCUT SCH (20:35)
[2021-04-10 20:45] LABS: Uric Acid 4.1 mg/dL (4.4-7.6)
[2021-04-10 20:48] LABS: TSH Ultra Thyroid Stim Horm 1.23 mcIU/mL (0.34-5.60)
[2021-04-10 21:02] LABS: Erythrocyte Sed Rate 7 mm/Hr (0-19)
[2021-04-11 00:18] LABS: Magnesium 2.2 mg/dL (1.9-2.7)
[2021-04-11] MEDS: Aspirin EC 81 mg TAB.EC (enteric coated) PO SCH (09:03)
[2021-04-11] MEDS: PTO: DAPAGLIFLOZIN 10 MG TAB (NF) PO SCH (09:05)
[2021-04-11] MEDS: Enoxaparin 40 MG/0.4 ML SYR SUBCUT SCH (21:24)
[2021-04-12] MEDS: PTO: DAPAGLIFLOZIN 10 MG TAB (NF) PO SCH ×2 (07:57→13:14)
[2021-04-12] MEDS: Aspirin EC 81 mg TAB.EC (enteric coated) PO SCH (07:57)
[2021-04-12 12:43] VITALS: BP 143/81
[2021-04-12] MEDS ORDERED: PTO: Dulaglutide (NF) 1.5 MG/0.5 ML SYRINGE SUBCUT SCH (15:00)
== END 2021-04-12 16:25 | disposition home or self-care (01) ==
LOC: ED 15:14 → EDHOLD 15:14 → MEDTELE 23:18
PROVIDERS: ADMIT Internal Medicine; ATTEND Internal Medicine

== ENCOUNTER 2023-07-08 10:52 | Observation (INO) ==
[~2023-07-08 10:52] MED LIST: Naloxone 0.4 mg VIAL 0.4 mg/ml 1 ml VIAL IV PRN; Ondansetron 4 mg VIAL 2 MG/ML 2 ml VIAL IV PRN
[2023-07-08] MEDS ORDERED: Midazolam 2 mg/2 ml VIAL 1 mg/ml 2 ml VIAL (2 mg) ONE (11:16)
[2023-07-08] MEDS ORDERED: Ondansetron 4 mg VIAL 2 MG/ML 2 ml VIAL ONE ×2 (11:16→14:39)
[2023-07-08] MEDS ORDERED: Propofol 10 MG/ML 20 ML BTL ONE ×2 (11:16→15:54)
[2023-07-08] MEDS ORDERED: fentaNYL 100 mcg/2 ml 50 MCG/ML VIAL ONE ×4 (11:16→17:23)
[2023-07-08] MEDS ORDERED: Lidocaine 2% PF 5 ML VIAL ONE (11:16)
[2023-07-08] MEDS ORDERED: Dexamethasone IV 4 MG/ML VIAL 1 ml VIAL ONE ×3 (11:16→14:39)
[2023-07-08 11:37] LABS: Rapid COVID-19 Molecular Undetected (Undetected)
[2023-07-08] MEDS ORDERED: Tranexamic Acid 1 GM/100ML BAG 2,000 MG/200 ML BAG IV ONE (12:19)
[2023-07-08] MEDS ORDERED: ceFAZolin 2 GM in NS PREMIX 2 GM/100 ML BAG IVPB ONE (12:20)
[2023-07-08] MEDS ORDERED: Ropivacaine 5 MG/ML 20 ML VIAL 0.5% (100 MG) ONE (13:12)
[2023-07-08] MEDS ORDERED: ROPIVACAINE 5 MG/ML 30 ML BTL (0.5%) ONE (14:17)
[2023-07-08] MEDS ORDERED: HYDROmorphone 0.5 MG/0.5 ML SYRINGE ONE (14:35)
[2023-07-08] MEDS ORDERED: Rocuronium 50 mg VIAL 10 mg/ml 5 ml VIAL (50 mg) ONE (14:35)
[2023-07-08] MEDS ORDERED: Sterile Water for Inj 10 ML ONE ×2 (14:41→14:53)
[2023-07-08] MEDS ORDERED: Ondansetron 4 mg VIAL 2 MG/ML 2 ml VIAL IV PRN (15:32)
[2023-07-08] MEDS ORDERED: Ondansetron ODT 4 mg TAB 4 MG TAB PO PRN (15:32)
[2023-07-08] MEDS ORDERED: Magnesium Hydroxide LIQ 30 ML UDC PO PRN (15:32)
[2023-07-08] MEDS ORDERED: Morphine 2 MG/ML SYRINGE IV PRN (15:32)
[2023-07-08] MEDS ORDERED: Calcium Carb (TUMS) 500 mg CHEW TAB PO PRN (15:32)
[2023-07-08] MEDS ORDERED: Lactulose 30 ml UDC PO PRN (15:32)
[2023-07-08] MEDS ORDERED: Naloxone 4 mg VIAL 0.4 MG/ML 10 ml VIAL (4 mg) ONE (16:59)
[2023-07-08] MEDS: fentaNYL 100 mcg/2 ml 50 MCG/ML VIAL IV PRN (17:27)
[2023-07-08] MEDS ORDERED: Dextrose 50% Syringe 50 ml 25 GM/50 ML SYRINGE IV PUSH PRN (18:07)
[2023-07-08] MEDS: Lactated Ringers 1000 ml BAG 1,000 ML IV SCH ×2 (18:38)
[2023-07-08] MEDS: Buffered Lidocaine 1% SYRIN 1 ml INTRADERM ONE (18:38)
[2023-07-08] MEDS: Magnesium Hydroxide LIQ 30 ML UDC PO SCH (21:13)
[2023-07-08] MEDS: Metformin ER 750 mg TAB (NF) PO SCH (21:18)
[2023-07-08] MEDS: ceFAZolin 2 GM in NS PREMIX 2 GM/100 ML BAG IVPB SCH (21:34)
[2023-07-09 06:03] LABS: Hematocrit 38.2 % (38-53); Hemoglobin 12.6 g/dL (13.2-16.3); Mean Platelet Volume 9.8 fL (7.5-11.2); Platelet Count 130 10^3/uL (150-450)
[2023-07-09 06:25] LABS: Calcium 8.4 mg/dL (8.6-10.3); Creatinine, Serum 0.88 mg/dL (0.67-1.17); Potassium 4.9 mmol/L (3.5-5.0); eGFR CKD-EPI 93.1 (>60)
[2023-07-09] MEDS: CMCS:DAPAGLIFLOZIN 10 MG TAB (NF) PO SCH (08:22)
[2023-07-09] MEDS: Vitamin THERAPEUTIC TAB PO SCH (08:23)
[2023-07-09] MEDS: HYOSCYAMINE 0.375 MG PO SCH (08:36)
[2023-07-09 10:34] VITALS: BP 126/67
== END 2023-07-09 14:25 | disposition home or self-care (01) ==
LOC: INTOOBSV 10:52 → AA 10:52 → SSU 15:32
PROVIDERS: ADMIT Orthopaedic Surgery Adult Reconstructive Orthopaedic Surgery; ATTEND Orthopaedic Surgery Adult Reconstructive Orthopaedic Surgery